=== PATIENT | female | born 1950 | race Caucasian/White ===

== ENCOUNTER 2025-05-10 11:45 | Outpatient (CLI) | payer MEDICARE, SELFPAY ==
--- NOTE | ~2025-05-10 | XR_ITS ---
EXAMINATION: XR hand LT 2V, 05/10/2025 12:00 CDT HISTORY: REDNESS, PAIN, SWELLING L HAND AND WRIST COMPARISON: No comparisons available. Findings: No acute fracture or malalignment. Moderate to severe degenerative changes of the distal and proximal interphalangeal joints with small erosions noted. Soft tissues unremarkable. Impression: Degenerative changes Reviewed, dictated and finalized at location P. Impression: Degenerative changes
--- NOTE | ~2025-05-10 | XR_ITS ---
EXAMINATION: XR wrist LT 2V, 05/10/2025 12:00 CDT HISTORY: REDNESS, PAIN, SWELLING L HAND AND WRIST COMPARISON: No comparisons available. Findings: No acute fracture or malalignment. Severe degenerative changes with narrowing of the joint spaces with small erosions identified and disruption of the carpal arches. Soft tissue swelling. Impression: Severe degenerative changes. Outpatient MRI suggested to further evaluate Reviewed, dictated and finalized at location P. Impression: Severe degenerative changes. Outpatient MRI suggested to further evaluate
--- OUTSIDE RECORDS SUMMARY | 2025-05-10 12:07 | XMS_ITS | Clinical Summary ---
Author Organization [facility] Address [facility] [place] [address] Care Team Providers Care Barrel Washer Machine Name Role Phone Ambar Doss Primary Care Provider [phone] Social History Tobacco Use Types Packs/Day Years Used Date Smoking Tobacco: Former Comments Unknown Sex and Gender Information Value Date Recorded Sex Assigned at Not on file Legal Sex Female 6:25 PM CDT Gender Identity Not on file Sexual Orientation Not on file Last Filed Vital Signs Vital Sign Reading Time Taken Comments Blood Pressure 146/96 11/01/2010 1:11 AM CDT Pulse 87 11/01/2010 1:11 AM CDT Temperature - - Respiratory Rate 18 11/01/2010 1:11 AM CDT Oxygen Saturation - - Inhaled Oxygen Concentration - - Weight 116.1 kg (256 lb) 11/01/2010 1:11 AM CDT Height 162.6 cm (5' 4) 11/01/2010 1:11 AM CDT Body Mass Index 43.94 11/01/2010 1:11 AM CDT Plan of Treatment Health Maintenance Due Date Last Done Comments Colorectal Cancer Screening Colonoscopy (10 Years) 1950 Hepatitis C 1968 DTaP, Tdap and Td Vaccines ( 1 - Tdap) 1969 Mammogram Screening 1990 Pneumococcal Vaccine: 50+ Years (1 of 1 - PCV) 2000 Zoster Vaccines (1 of 2) 2000 Annual Medicare Wellness Visit 12/25/2015 Dexa Scan (General) 12/25/2015 COVID-19 Vaccine (2024-2 6 season) 2025 04/26/2021, 11/23/2020, 11/02/2020 RSV Immunization or 60+ Years (1 - 1-dose 75+ series) 2025 Meningococcal B Vaccine Aged Out No l onger eligible based on patient's age to complete this topic Meningococcal Vaccine Aged Out No jeremi nathaniel eligible based on patient's age to complete this topic RSV Immunizations Under 20 Months Aged Out No longer eligible b ased on patient's age to complete this topic Insurance MEDICARE Care Teams Barrel Washer Machine Relationship Specialty Start Date End Date Ambar Doss FNP Formerly named [facility] [place] [address] [place] [address] PCP - General NURSE PRACTITIONER 07/12/23
--- OUTSIDE RECORDS SUMMARY | 2025-05-10 12:07 | XMS_ITS ---
Author Organization [facility] r Care Team Providers Care Sales Intern Name Role Phone Nursing, Order Unavailable Unavailable Yasmani Gutierrez Unavailable Unavailable Allergies and adverse reactions Code CodeSystem Substance Reaction Severity StartDate Concern Status 535369115 SNOMED CT Sulfa Antibiotics Nausea (code- 984208061, SNOMED CT) Severe 04/17/2024 active 23191 RXNORM levoFLOXacin Vomiting (code- 841335081, SNOMED CT) Severe 04/17/2024 active 14365 RXNORM Gabapentin Anaphylaxis (code- 50596907, SNOMED CT) Severe 04/17/2024 active Care Team Name Role Address Phone Organization Dates Yasmani Gutierrez PCP [address] , [place], [address], [place] (Office): : [facility] ([place] 04/20/2024 - 05/01/2024 Order Nursing [facility] 04/20/2024 - 05/01/2024 Immunizations Immunization Status Vaccine Details Vaccine Code CodeSystem Date Notes Influenza completed Influenza, high-dose, split virus, quadrivalent, injectable, preservative free 197 CVX created date: 05/01/2024 administere d date: 06/26/2022 T-DAP completed tetanus toxoid, reduced diphtheria toxoid, and acellular pertussis vaccine, adsorbed 115 CVX created date: 05/01/2024 administere d date: 02/01/2023 pneumococcal polysaccharide PPV23 completed pneumococcal polysaccharide vaccine, 23 valent 33 CVX created date: 05/01/2024 administere d date: 06/30/2021 pneumococcal conjugate completed pneumococcal conjugate vaccine, 13 valent 133 CVX created date: 05/01/2024 administere d date: 02/01/2023 Mental Status Section Date Assessment Total Score Description 05/01/2024 BIMS 15 cognitively int act CAM 0 No delirium ind icated PHQ-9 00 04/22/2024 BIMS 11 moderate cognit des impairment CAM 0 No delirium ind icated PHQ-9 01 minimal depress ion Problems Problem # Description Date of onset Resolved Date Code CodeSystem Concern Status 1 CHRONIC OBSTRUCTIVE PULMONARY DISEASE, UNSPECIFIED 04/20/[address] active 2 HYDROCEPHALUS, UNSPECIFIED 04/20/[address] active 3 URINARY TRACT INFECTION, SITE NOT SPECIFIED 04/20/[address] active 4 (IDIOPATHIC) NORMAL PRESSURE HYDROCEPHALUS 04/17/[address] active 5 ABNORMAL LEVELS OF OTHER SERUM ENZYMES 04/17/[address] active 6 ANXIETY DISORDER, UNSPECIFIED 04/17/[address] active 7 CHRONIC KIDNEY DISEASE, STAGE 3 UNSPECIFIED 04/17/[address] active 8 DEPRESSION, UNSPECIFIED 04/17/[address] active 9 ENCEPHALOPATHY, UNSPECIFIED 04/17/[address] active 10 ESSENTIAL (PRIMARY) HYPERTENSION 04/17/[address] active 11 FIBROMYALGIA 04/17/[address] acti ve 12 GASTRO-ESOPHAGEAL REFLUX DISEASE WITHOUT ESOPHAGITIS 04/17/[address] active 13 GOUT, UNSPECIFIED 04/17/[address] active 14 HYPERLIPIDEMIA, UNSPECIFIED 04/17/[address] active 15 HYPOKALEMIA 04/17/[address] active 16 HYPOTHYROIDISM, UNSPECIFIED 04/17/[address] active 17 IRRITABLE BOWEL SYNDROME, UNSPECIFIED 04/17/[address] active 18 OTHER CERVICAL DISC DISPLACEMENT, UNSPECIFIED CERVICAL REGION 04/17/[address] active 19 PERSONAL HISTORY OF COVID-19 04/17/[address] active 20 POST-TRAUMATIC STRESS DISORDER, UNSPECIFIED 04/17/[address] active 21 PRIMARY OSTEOARTHRITIS, LEFT SHOULDER 04/17/[address] active 22 RESTLESS LEGS SYNDROME 04/17/[address] active 23 SLEEP APNEA, UNSPECIFIED 04/17/[address] active 24 SPONDYLOSIS WITHOUT MYELOPATHY OR RADICULOPATHY, CERVICAL REGION 04/17/[address] active 25 UNSPECIFIED ASTHMA, UNCOMPLICATED 04/17/[address] active 26 VITAMIN D DEFICIENCY, UNSPECIFIED 04/17/[address] active Reason for Referral No Reasons for Referral Entered Social History Social History Observation Description Start Date End Date Code Code System Current Smoking Status Tobacco smoking consumption unknown 404443792 SNOMED CT Sex Assigned At Female 1950 46268-5 [facility] Gender Identity Sexual Orientation Vital Signs Code Code System Vitals Name Values and Units Timing Information 04803-9 [facility] Pain Level Value=0.0 05/01/2024 9279-1 [facility] Respiratory Rate Value=22.0 Units=/m in 05/01/2024 8462-4 [facility] Blood Pressure-Diastolic Value=93 Un its=mmHg 05/01/2024 8480-6 [facility] Blood Pressure-Systolic Jldkc=624 Un its=mmHg 05/01/2024 8310-5 [facility] Body Temperature Value=97.7 Units= F 05/01/2024 8867-4 [facility] Heart rate Value=78.0 Units=/min 71844-5 [facility] O2 % [facility] Oximetry Value=90.0 Units= % 05/01/2024 86528-7 [facility] Weight Dxjog=510.0 Units=Lbs 8302-2 [facility] Height Value=68.0 Units=Inches 04/20/2024
--- OUTSIDE RECORDS SUMMARY | 2025-05-10 12:07 | XMS_ITS | Clinical Summary ---
Author Organization [employer] Address [address] [place] [address] [address] [place] [address] Care Team Providers Care Senior Oracle Dba Name Role Phone Provider, No Attributed RESOURCE Unavailable Unavailable Yasmani Gutierrez MD Primary Care Provider Allergies Active Allergy Reactions Criticality Noted Date Comments Acetaminophen Injection Unknown/Not Verified Codeine Nausea and Vomiting Codeine Rash High 03/04/2015 Hydrocodone Rash High 04/14/2019 Levofloxacin Unknown/Not Verified 06/03/2015 Gabapentin Anaphylaxis (High) High Penicillin Rash High 03/04/2015 Sulfa Drugs Rash,Nausea and Vomiting 03/04/2015 Wasp Stings Wheezing/Bronchospasm (High) High 2015 Medications lisinopril-hydr ochlorothiazide (PRINZIDE, ZESTORETIC) 20-25 mg tablet Take 1 tablet by mouth 1 time per day. Active levothyroxine (SYNTHROID) 25 mcg tablet Take 25 mcg by mouth 1 time a day in the morning. Active levothyroxine (SYNTHROID) 88 mcg tablet Take 88 mcg by mouth 1 time per day. Active allopurinol (ZYLOPRIM) 100 mg tablet Take 200 mg by mouth 1 time per day. Active rOPINIRole (REQUIP) 1 mg tablet Take 2-3 tablets by mouth 3 times a day as needed. Active albuterol HFA (PROVENTIL,PROA IR,VENTOLIN) 108 (90 BASE) MCG/ACT inhaler Inhale 1-2 puffs orally every 4 to 6 hours as needed. Shake well before using. Active atorvaSTATin (LIPITOR) 10 mg tablet Take 10 mg by mouth Active DULoxetine (CYMBALTA) 20 mg capsule Take 20 mg by mouth 1 time per day Active furosemide (LASIX) 20 mg tablet Take 20 mg by mouth Active LORazepam (ATIVAN) 1 mg tablet Take 1 mg by mouth 4 times a day as needed Active magnesium oxide (MAG-OX 400) 400 mg tablet Take by mouth 1 time per day Active multivitamin (CERTAVITE WITH ANTIOXIDANTS) TABS Take 1 tablet by mouth Active cyanocobalamin, vitamin B-12, 100 mcg tablet Take 100 mcg by mouth 1 time per day Active acetaminophen (TYLENOL ARTHRITIS) 650 mg CR tablet Take 650 mg by mouth Every 8 hours as needed Active HYDROcodone-ibu profen (VICOPROFEN) 7.5-200 mg tablet Take 1 tablet by mouth every 4 to 6 hours as needed Active omeprazole (PRILOSEC) 20 mg capsuleIndicati ons:History of Senia fundoplication, Esophageal dysphagia Take 1 capsule (20 mg) by mouth 1 time a day in the morning 30 capsule 12 7 Active lidocaine (LIDODERM) 5% patchIndication s:Right flank pain Apply 1 patch topically 1 time per day Patches may be left on for up 12 hours in a 24 hour period. 30 patch 9 Active cyclobenzaprine (FLEXERIL) 10 mg tabletIndicatio ns:Right flank pain Take 0.5 tablets (5 mg) by mouth 3 times a day as needed for muscle spasm 20 tablet 9 Active Active Problems Problem Noted Date Diagnosed Date Asthma ([facility]) 05/27/2019 Gastroesophageal reflux disease 05/27/2019 Elevated liver enzymes 05/27/2019 Essential hypertension 05/27/2019 Fusion of spine of lumbar region 05/27/2019 Generalized anxiety disorder 05/27/2019 Hypothyroidism (acquired) 05/27/2019 Major depressive disorder, single episode 2018 Obstructive sleep apnea 05/27/2019 Peripheral arterial disease 05/27/2019 Primary osteoarthritis of left hip 05/27/2019 Restless legs syndrome 05/27/2019 Skin cancer, basal cell 05/27/2019 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 05/27/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 02/09 Family History Medical History Relation Comments Cerebrovascular Accident Father Heart Disease Mother Relation Status Comments Father Mother Social History Tobacco Use Types Packs/Day Years Used Date Smoking Tobacco: Former Cigarettes Q uit: 08/12/1990 Smokeless Tobacco: Never Alcohol Use Standard Drinks/Week Comments Yes 0 (1 standard drink = 0.6 oz pur e alcohol) Sexually Active Control Partners Comments Yes Male Comments No Sex and Gender Information Value Date Recorded Sex Assigned at Not on file 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 Gender Identity Not on file Sexual Orientation Not on file Last Filed Vital Signs Vital Sign Reading Time Taken Comments Blood Pressure 154/94 05/27/2019 7:10 PM CDT Pulse 87 05/27/2019 10:19 PM CDT Temperature 36.5 C (97.7 F) 05/27/2019 7:09 PM CDT Respiratory Rate 22 05/27/2019 7:09 PM CDT Oxygen Saturation 100% 05/27/2019 10:19 PM CDT Inhaled Oxygen Concentration - - Weight 108.4 kg (239 lb) 04/24/2017 10:30 AM CDT Height 162.6 cm (5' 4) 04/24/2017 10:30 AM CDT Body Mass Index 41.02 04/24/2017 10:30 AM CDT Plan of Treatment Health Maintenance Due Date Last Done Comments Hepatitis C Screening 1950 Microalbumin 1950 TSH Every Year 1950 TDAP/TD VACCINE (1 - Tdap) 12/25/1971 Lipid Screening 1990 Pneumococcal Vaccine 50yr + (1 of 1 - PCV) 2000 Zoster Vaccine (1 of 2) 2000 Mammogram 07/14/2013 07/14/2012 Advance [employer] Directive document 12/25/2015 DEXA/Heel Scan 12/25/2015 Colorectal Cancer Screening 08/12/2019 08/12/2009 Creatinine 05/27/2020 05/27/2019 Diabetes Screening 05/27/2022 05/27/2019 Influenza Vaccine (#1) 2025 RSV Vaccine, Adult (1 - 1-do se 75+ series) 2025 Hepatitis B Vaccine Aged Out No longe r eligible based on patient's age to complete this topic Procedures Procedure Name Priority Date/Time Associated Diagnosis Comments COMPREHENSIVE METABOLIC PANEL STAT 05/27/2019 7:15 PM CDT from Last 3 Months or Most Recently Relevant to Health Maintenance Results * (ABNORMAL) COMPREHENSIVE METABOLIC PANEL (05/27/2019 7:15 PM CDT) Glucose 115(H) 70 - 100 mg/dL 05/27/2019 7:40 PM [facility] BUN 8(L) 10 - 20 mg/dL 05/27/2019 7:40 PM [facility] Creatinine 0.70 0.57 - 1.11 mg/dL 05/27/2019 7:40 PM [facility] BUN/Creatinine Ratio 11.4 8.0 - 36.0 05/27/2019 7:40 PM [facility] Sodium 140 136 - 145 meq/L 05/27/2019 7:40 PM [facility] Potassium 3.9 3.5 - 5.1 meq/L 05/27/2019 7:40 PM [facility] Chloride 99 98 - 107 meq/L 05/27/2019 7:40 PM [facility] CO2 29 22 - 29 meq/L 05/27/2019 7:40 PM [facility] Anion Gap with K 16 6 - 18 meq/L 05/27/2019 7:40 PM [facility] Calcium 9.9 8.4 - 10.2 mg/dL 05/27/2019 7:40 PM [facility] Protein Total 7.5 6.4 - 8.3 g/dL 05/27/2019 7:40 PM [facility] Albumin 4.1 3.5 - 5.0 g/dL 05/27/2019 7:40 PM [facility] Alkaline Phosphatase 166(H) 40 - 150 U/L 05/27/2019 7:40 PM [facility] AST - SGOT 21 8 - 34 U/L 05/27/2019 7:40 PM [facility] ALT - SGPT 17 10 - 41 U/L 05/27/2019 7:40 PM [facility] Bilirubin Total 0.3 0.2 - 1.2 mg/dL 05/27/2019 7:40 PM [facility] Age 68 Years 05/27/2019 7:40 PM [facility] eGFR Non- 83 mL/min/1. 73m2 05/27/2019 7:40 PM CDT [facility] eGFR >90 mL/min/1. 73m2 05/27/2019 7:40 PM CDT [facility] Comment: The estimated Glomerular Filtration Rate (eGFR) is calculated using the Abbreviated Modification of Diet in Renal Disease (MDRD) equation. The eGFR is reported out in mL/min. per 1.73 meter squared units. The National Kidney Foundation action value for patients without a diagnosis of chronic kidney disease is a eGFR of < 60 mL/min per 1.73M2. The National Kidney Foundation stages listed below apply to patients with a diagnosis of chronic kidney disease (defined as either kidney damage or eGFR <60 mL/min/1.73 m2 for 3 months). Kidney damage is defined as pathologic abnormalities or markers of damage, including abnormalities in blood or urine tests or imaging studies. These stages apply to adults. No standardized classification has yet been established for pediatric patients. Stage eGFR in ml/min per 1.73M2 1 Kidney abnormality with normal or increased eGFR >or=90 2 Kidney abnormality with mild decreased eGFR 60-89 3 Moderately decreased eGFR 30-59 4 Severely decreased eGFR 15-29 5 Kidney failure <15 The eGFR varies with age, sex, race and body size and normally decreases with age. Blood BLOOD SPECIMEN / Unknown 05/27/2019 7:15 PM CDT 05/27/2019 7:22 PM CDT us Ashley PASCUAL LAB BLOOD Final Result [facility] [address] [place] [address] from Last 3 Months or Most Recently Relevant to Health Maintenance Advance Directives For more information, please contact: [phone] * Full Code (Latest Code Status on File) Date Activated Date Inactivated Comments 04/24/2017 10:37 AM 04/25/2017 6:17 AM Care Teams Senior Oracle Dba Relationship Specialty Start Date End Date Provider, No Attributed, RESOURCE [address] PCP - Attributed Provider 06/10/17 Yasmani Gutierrez MD [address] [place] [address] PCP - General 07/06/19
== END 2025-05-10 11:46 | disposition home or self-care (01) ==
PROVIDERS: PCP Internal Medicine; Visit Provider Internal Medicine
DX: R52 Pain, unspecified (principal)
CPT/HCPCS: 73100; 73120

== ENCOUNTER 2025-05-17 01:26 | Observation (INO) | payer MEDICARE, OTHER, SELFPAY ==
--- OUTSIDE RECORDS SUMMARY | 2024-04-20 19:00 | XMS_ITS | Continuity of Care Document ---
Author Organization [facility] Address [address] [facility] 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 [address] [place], [place], [id number] , [place]. tel:[phone] Referring Provider: Nik Mcgrath, [address] [place] [address] [address], [place], [address]. tel:[phone] [facility] [address] [place], [place], [address] , [place] tel:[phone] [facility] No Information 4 Roel Cisse. [address], [place], [place], [address] , [place]. tel: [phone] Referring Provider: Raf Lawrence, [address], [place], [address] . tel:[phone] [facility] [address], [place], [place], [address] , [place] tel: [phone] [facility] Follow Up of Post Op (chief complaint) Presence of right artificial shoulder joint Sep-2 2 Francia Velasquez. [address], [place], [place], [id number] , [place]. tel: [phone] Referring Provider: Ron Hanson, [address] , [place], [address] . tel:[phone] [facility] [address] , [place], [place], [id number] , [place] tel: [phone] [facility] No Information Sep-0 2 Francia Velasquez. [address], [place], [place], [id number] , [place]. tel: [phone] [facility] [address], [place], [place], [address] , [place] tel: [phone] [facility] Presence of right artificial shoulder joint Sep-0 2 Francia Velasquez. [address], [place], [place], [id number] , [place]. tel: [phone] [facility] [address], [place], [place], [address] , [place] tel: [phone] [facility] Post Op (chief complaint) Presence of right artificial shoulder jointAftercare following right shoulder joint replacement surgery Mar-0 2 Francia Velasquez. [address], [place], [place], [address] , [place]. tel: [phone] Referring Provider: Ron Hanson, [address], [place], [address] . tel:[phone] [facility] [address], [place], [place], [address] , [place] tel:[phone] [facility] Post Op (chief complaint) Aftercare following right shoulder joint replacement surgeryPresence of right artificial shoulder joint 2 Francia Velasquez. [address], [place], [place], [address] , [place]. tel:[phone] Referring Provider: Ron Hanson, [address], [place], [address] . tel:[phone] [facility] [address], [place], [place], [address] , [place] tel:[phone] [facility] No Information 2 Amaris Alves. [address], [place], [place], [address] , [place]. tel:[phone] Referring Provider: Long Harrell, [address], [place], [address] . tel:[phone] Office/Outpa tient Vist Est 3 [facility] [address], [place], [place], [address] , [place] tel:[phone] [facility] Right shoulder pain (chief complaint) Primary osteoarthritis, right shoulder 1 Amaris Alves. [address], [place], [place], [address] , [place]. tel:[phone] Referring Provider: Long Harrell, [address], [place], [address] . tel:[phone] Office/Outpa tient Vist Est 3 [facility] [address], [place], [place], [address] , [place] tel:[phone] [facility] Left hip pain (chief complaint) Pain in left hipUnsp complication of internal prosth dev/grft, init Mar- 0 Amaris Alves. [address], [place], [place], [address] , [place]. tel: [phone] Referring Provider: Long Harrell, [address], [place], [address] . tel:[phone] [facility] [address], [place], [place], [address] , [place] tel: [phone] [facility] SP Left CATHIE DAA 04-21-19 (chief complaint) Primary osteoarthritis of left hipStatus post total hip replacement, left Sep-2 9 Laine Morales. [address], [place], [place], [address] , [place]. tel: [phone] Referring Provider: Andrew Hanson, [address], [place], [address] . tel:[phone] [facility] [address], [place], [place], [address] , [place] tel: [phone] [facility] No Information Sep- 9 Amaris Alves. [address], [place], [place], [id number] , [place]. tel: [phone] Referring Provider: Long Harrell, [address], [place], [address] . tel:[phone] Office/Outpa tient Vist Est 3 [facility] [address], [place], [place], [address] , [place] tel: [phone] [facility] Right arm pain (chief complaint) Pain in right shoulderCervicalgia Sep-0 9 Amaris Alves. [address], [place], [place], [address] , [place]. tel: [phone] Referring Provider: Long Harrell, [address], [place], [address] . tel:[phone] Office/Outpa tient Vist Est 3 [facility] [address], [place], [place], [address] , [place] tel:[phone] [facility] Left hip pain (chief complaint) Pain in left hip 9 Amaris Alves. [address], [place], [place], [address] , [place]. tel:[phone] Referring Provider: Long Harrell, [address], [place], [address] . tel:[phone] Office/Outpa tient Vist Est 3 [facility] [address], [place], [place], [address] , [place] tel:[phone] [facility] 4 month recheck, Left TSA 02/11/17 (chief complaint) Presence of left artificial shoulder joint May- 7 Amaris Alves. [address], [place], [place], [address] , [place]. tel:[phone] Referring Provider: Long Harrell, [address], [place], [address] . tel:[phone] Office/Outpa tient Visit Est 2 [facility] [address], [place], [place], [address] , [place] tel: [phone] [facility] Follow Up of injection (chief complaint) Spinal stenosis of lumbar region, unspecified whether neurogenic claudication present 7 Sergei Kim. [address], [place], [place], [address] , [place]. tel:[phone] Referring Provider: Julio Mai, [address], [place], [address] . tel:[phone] Office/Outpa tient Visit Ext 4 [facility] [address], [place], [place], [address] , [place] tel:[phone] [facility] asthma (chief complaint) sleep apnea (follow up) (chief complaint) Allergic rhinitis, unspecifiedObstruct des sleep apneaSevere persistent asthma, uncomplicated Sep-2 7 José Miguel Nunn. [address], [place], [place], [id number] , [place]. tel:[phone] Referring Provider: Arline Hanson, [address] , [place], [address] . tel:[phone] [facility] [address], [place], [place], [address] , [place] tel:[phone] [facility] No Information Sep-2 [facility] [place]. [address], [place], [place], [address] , [place]. tel:[phone] Len Perez. Referring Provider: Harman Yen, [address] [facility], [place], [address] . tel:[phone] Office/Outpa tient Visit Ext 4 [facility] [address], [place], [place], [address] , [place] [phone] [facility] low back pain (chief complaint) Low back painLumbar spinal stenosis Sep-1 7 Sergei Kim. [address], [place], [place], [address] , [place]. tel:[phone] Referring Provider: Julio Mai, [address], [place], [address] . tel:[phone] [facility] [address], [place], [place], [address] , [place] tel:[phone] [facility] SP Left TSA 02-11-17 (chief complaint) Status post total replacement of left shoulder 7 Laine Morales. [address], [place], [place], [address] , [place]. tel:[phone] Referring Provider: Andrew Hanson, [address], [place], [address] . tel:[phone] [facility] [address], [place], [place], [address] , [place] tel:[phone] [facility] SP Left TSA 02-11-17 (chief complaint) Primary osteoarthritis, left shoulderStatus post total replacement of left shoulder 7 Laine Morales. [address], [place], [place], [address] , [place]. tel:[phone] Referring Provider: Andrew Hanson, [address], [place], [address] . tel:[phone] [facility] [address], [place], [place], [address] , [place] tel:[phone] [facility] No Information 7 Amaris Alves. [address], [place], [place], [address] , [place]. tel:[phone] Referring Provider: Long Harrell, [address], [place], [address] . tel:[phone] Office/Outpa tient Vist Est 3 [facility] [address], [place], [place], [address] , [place] tel:[phone] [facility] Left shoulder pain (chief complaint) Arthritis of left shoulder region 7 Amaris Alves. [address], [place], [place], [address] , [place]. tel:[phone] Referring Provider: Julio Mai, [address], [place], [address] . tel:[phone] Office Visit New Level 3 [facility] [address] [place] [address], [id number] , [place] tel: [phone] [facility] shoulder pain (chief complaint) Pain in left shoulderArthritis of left shoulder region 7 Sergei Kim. [address] [place] [address], [id number] , [place]. tel: [phone] Referring Provider: Len Basilio, [address] [place], [address] . tel:[phone] Office/Outpa tient Visit Ext 4 [facility] [address] , [place], [place], [address] , [place] tel: [phone] [facility] asthma (chief complaint) sleep apnea (follow up) (chief complaint) Obstructive sleep apneaSevere persistent asthma with (acute) exacerbationDyspnea , unspecified 7 José Miguel Nunn. [address] [place] [address], [id number] , [place]. tel:[phone] Referring Provider: Arline Hanson, [address] [facility], [place], [address] . tel:[phone] Office Visit New Level 5 [facility] [address] [place] [address], [id number] , [place] tel: [phone] [facility] sleep apnea (consult) (chief complaint) cough (chief complaint) asthma (chief complaint) SnoringObstructive sleep apneaSevere persistent asthma with (acute) exacerbationAllergi c rhinitis, unspecified 7 José Miguel Nunn. [address] , [place], [place], [address] , [place]. tel:[phone] Referring Provider: Arline Hanson, [address] [facility], [place], [address] . tel:[phone] Prevent Exam 40-64 Years [facility] [address] , [place], [place], [address] , [place] tel: [phone] [facility] annual exam (chief complaint) ROUTINE MEDICAL EXAMUnspecified essential hypertensionUnspeci fied hypothyroidismGout, unspecifiedMyalgia and myositis, unspecifiedDepressi ve disorder, not elsewhere classifiedAnxiety state, unspecifiedMammogra m, ScreeningRoutine Disability Insurance Hearing Officer Examination 4 Sergei Choudhury. [address] , [place], [place], [id number] , [place]. tel: [phone] Referring Provider: Kei Dubois, [address] , [place], [address] . tel:[phone] Family History Family Member Type Diagnosis Age At Onset Father Problem (finding) Cancer, skin Mother Problem (finding) congestive heart failur e Payers Payer name Insurance type Covered alliance party ID Nirav arteaga(s) [place] Medicare [id number] [facility] [id number] Social History Type Description Quantity Date Captured [...] u se screening. Due on due Goal FOBT. Due on due Goal Td vaccine. Due on due Goal DEXA scan. Due on due Goal FIT. Due on due Goal CT-Colonography. Due on due Goal Hepatitis C scre ening. Due on due Goal Lipid panel. Due on 022 due Goal Reviewed BMI. Due on 2021 due Goal Annual Wellness Visit. Due on due Goal Sigmoidoscopy. Due on due Goal Depression scree sharee. Due on due Goal Advance Care Denise nning. Due on due Goal FIT-DNA. Due on due Goal Fall Risk. Due on due Goal Colonoscopy. Due on due Goal Zoster vaccine. Due on due Goal Influenza vaccine. Due on due Goal Mammogram. Due on due Goal Tdap. Due on due Goal Pneumococcal vac cine. Due on due Goal Zoster vaccine ( ). Due on due Goal Zoster vaccine ( ). Due on due Goal Tdap. Due on due Goal Reviewed BMI. Due [...] on due Goal Fall Risk. Due on 2 due Goal Zoster vaccine. Due on due [...] vaccine ( ). Due on due Goal Reviewed BMI. Due on 2020 due Goal Unhealthy drug u se screening. Due on due Goal Zoster vaccine ( ). Due on due Goal Pneumococcal vac cine. Due on due Goal FOBT. Due on due Goal Advance Care Denise nning. Due on due Goal Depression scree sharee. Due on due Goal FIT. Due on due Goal Lipid panel. Due on due Goal Reviewed BMI. Due on 2019 due Goal DEXA scan. Due on 0 due Goal Annual Wellness Visit. Due on due Goal Influenza vaccine. Due on due Goal Mammogram. Due on 0 due Goal Sigmoidoscopy. Due on due Goal Tdap. Due on due Goal Colonoscopy. Due on due Goal Fall Risk. Due on 0 due Goal Zoster vaccine. Due on due Goal Diabetes screening. Due on A due Goal Td vaccine. Due on 20 due Goal Lipid panel. Due on 019 due Goal Diabetes screening. Due on due Goal Pneumococcal vac cine. Due on due Goal Td vaccine. Due on 19 due Goal Zoster vaccine ( 1st). Due on due Goal Zoster vaccine. Due on due Goal Annual Wellness Visit. Due on due Goal FOBT. Due on due Goal Reviewed BMI. Due on 2018 due Goal Mammogram. Due on 9 due Goal Sigmoidoscopy. Due on due Goal Fall Risk. Due on 9 due Goal Advance Care Denise nning. Due on due Goal DEXA scan. Due on 9 due Goal Tdap. Due on due Goal Influenza vaccine. Due on due Goal Colonoscopy. Due on due Goal FIT. Due on due Goal Depression scree sharee. Due on due Goal Annual Wellness Visit. Due on due Goal Lipid panel. Due on due Goal Depression scree sharee. Due on due Goal FOBT. Due on due Goal Reviewed BMI. Due on 2018 due Goal Zoster vaccine ( ). Due on due Goal FIT. Due on due Goal Fall Risk. Due on 9 due Goal Mammogram. Due on 9 due Goal Colonoscopy. Due [...] DEXA scan. Due on 9 due Goal Mammogram. Due on 9 due Goal Zoster vaccine. Due on due Goal Reviewed BMI. Due on 2018 due Goal FOBT. Due on due Goal Annual Wellness Visit. Due on due Goal Influenza vaccine. Due on due Goal Advance Care Denise nning. Due on due Goal FIT. Due on due Goal Lipid panel. Due on 019 due Goal Tdap. Due on due Goal Td vaccine. Due on 19 due Goal Depression scree sharee. Due on due Goal Sigmoidoscopy. Due on due Goal Diabetes screening. Due on due Goal Zoster vaccine ( ). Due on due Goal Colonoscopy. Due on 019 due Goal DEXA scan. Due on 9 due Goal Fall Risk. Due on 9 due Goal Pneumococcal vac cine. Due on due Goal Td vaccine. Due on 17 due Goal FOBT. Due on due Goal Zoster vaccine. Due on due Goal Tdap. Due on due Goal Mammogram. Due on 5 due Goal Fall Risk. Due on 7 due Goal Colonoscopy. Due on 017 due Goal FIT. Due on due Goal Depression scree sharee. Due on due Goal Lipid panel. Due on due Goal DEXA scan. Due on due Goal Pneumococcal vac cine. Due on due Goal Influenza vaccine. Due on Oc due Goal Sigmoidoscopy. Due on due Goal [...] Fall Risk. Due on 7 due Goal DEXA scan. Due on due [...] Td vaccine. Due on 17 due Goal Influenza vaccine. Due on due [...] Goal Mammogram. Due on 5 due Goal FOBT. Due on due Goal Tdap. Due on due Goal Depression scree sahree. Due on due Goal Influenza vaccine. Due [...] Goal Colonoscopy. Due on 017 due Goal Pap/HPV testing. Due on due Goal Depression scree sharee. Due on due Goal Td vaccine. Due on 17 due Goal Tobacco cessation counseling completed Referral Ordered: Harman Yen MD -Allopathic & Osteopathic Physicians : Anesthesiology (related to Lumbar spinal stenosis) ordered Referral Referred To: Harman Yen MD [address] [place], [phone] Ordered: Referrals: Allopathic & Osteopathic Physicians : Anesthesiology. Harman Yen MD ordered Referral Ordered: Len Mejia -Physician Assistants & Advanced Practice Nursing Providers : Physician Package Handler (related to Arthritis of left shoulder region) ordered Future Order: Lab Order Robb Wi th Bronch ([id number]), Sent on: Sent Future Order: Lab Order Pap Thin Prep (PL) ([id number]), Sent on: Sent Future Order: Lab Order CBC W/Au to Differential ([id number]), Sent on: Sent Future Order: Lab Order Comprehe nsive Metabolic Panel -[facility] ([id number]), Sent on: Sent Future Order: Lab [...] Prineo intact. Fell out of bed in [facility] last night- denies any new [...] 'roll down'. Patient doing outpatient therapy in [place] Patient using 1-2 tramadol per day to [...] for bilateral L2-3 TESI on 05-01-17 @ [facility] with Dr. Yen. YOBANY Left [facility] 02-11-17 (comments) 6 weeks s/p L CORAZONYeny is doing well in regards to her shoulder. She was in the ED recently with R sided neck pain, without radiculopathy. She continues in the A/S immobilizer and with her HEP. She takes only ES Tylenol prn for pain. SP Left TSA 7-10-26 Patient here along with her for left total shoulder follow up. Patient continues in her A/S immoblizer to her left arm. FYI-patient was seen in the ED/[facility] with complaints of severe right neck pain, up into my head. Patient given 2 injections, along with oral RX. SP Left TSA 7-10-26 Patient here along [...] Patient had her sleep study done in [place]. cough The patient desc ribes the cough as productive yellow. Associated symptoms include hoarseness. Pertinent negatives include dyspnea at rest, dyspnea on exertion and heartburn. Additional information: Patient finished a zThe Gluten Free Gourmetck yesterday. annual exam : 4. Cherelle ty: [...] alcohol. Additional information: Recently moved here from [place]. Last pap roughly three years ago. Mammogram [...] shoulder joint Yeny had a rough w ely shoshone and a half immediately following her surgery. [...] jody flood show progressive and very advanced yesy-aw-wwlr glenohumeral joint degenerative arthritis. She comes in [...] with numbness and tingling. She also has xxol-mk-anme arthritis involving her right shoulder glenohumeral joint. [...] Obstructive sleep apnea stable. will start rehab. [facility] R elated to Severe persistent asthma, [...] lift at L4-5, this was done in [place], and then a posterior fusion up to [...] her left anne medel show very advanced xsip-nm-atuu glenohumeral joint arthritis. She has been having [...]
[2025-05-17] VITALS (8 sets, daily range): BP systolic 116–154; BP diastolic 67–86; PULSE 84–99; RESP 14–20; TEMP 36.4–37.1; O2SAT 92–99; BMI 33.7
--- NOTE | ~2025-05-17 | CT_ITS ---
EXAMINATION: CT brain wo con DATE: 05/17/2025 02:52 INDICATION: Transient alteration of awareness. TECHNIQUE: Computed tomography (CT) of the head was performed without intravenous contrast. The mA was adjusted according to patient size. Iterative reconstruction technique was employed. The dose-length product was 681.00 mGy-cm. COMPARISON: None FINDINGS: There are scattered areas of low attenuation in the cerebral white matter. There is no intracranial hemorrhage, acute infarction, or abnormal intracranial mass lesion. The ventricles are normal in size. There is mild mucosal thickening in the paranasal sinuses. The mastoid air cells are normal. There are likely changes of ocular lens replacement surgeries. IMPRESSION: 1. Moderate nonspecific cerebral white matter disease, which likely represents chronic small vessel ischemic disease. Reviewed, dictated and finalized at location E.
--- NOTE | ~2025-05-17 | XR_ITS ---
EXAMINATION: XR chest 1V portable COMPARISON: No comparisons available. HISTORY: TRANSIENT ALTERATION OF AWARENESS. FINDINGS: The lungs are clear, no effusion. No pneumothorax. Heart is normal size. Mediastinal and hilar contours are within normal limits. Bony thorax no acute abnormality. Miscellaneous: None Impression: No acute cardiopulmonary abnormality. Reviewed, dictated and finalized at location P. Impression: No acute cardiopulmonary abnormality.
--- OUTSIDE RECORDS SUMMARY | 2025-05-17 01:46 | XMS_ITS | Clinical Summary ---
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 Gender Identity Not on file Sexual Orientation [...] 70 - 100 mg/dL 05/27/2019 7:40 PM [facility] BUN 8(L) 10 - 20 mg/dL 05/27/2019 7:40 PM [facility] Creatinine 0.70 0.57 - 1.11 mg/dL 05/27/2019 7:40 PM [facility] BUN/Creatinine Ratio 11.4 8.0 - 36.0 05/27/2019 7:40 PM [facility] Sodium 140 136 - 145 meq/L 05/27/2019 7:40 PM [facility] Potassium 3.9 3.5 - 5.1 meq/L 05/27/2019 7:40 PM [facility] Chloride 99 98 - 107 meq/L 05/27/2019 7:40 PM [facility] CO2 29 22 - 29 meq/L 05/27/2019 7:40 PM [facility] Anion Gap with K 16 6 - 18 meq/L 05/27/2019 7:40 PM [facility] Calcium 9.9 8.4 - 10.2 mg/dL 05/27/2019 7:40 PM [facility] Protein Total 7.5 6.4 - 8.3 g/dL 05/27/2019 7:40 PM [facility] Albumin 4.1 3.5 - 5.0 g/dL 05/27/2019 7:40 PM [facility] Alkaline Phosphatase 166(H) 40 - 150 U/L 05/27/2019 7:40 PM [facility] AST - SGOT 21 8 - 34 U/L 05/27/2019 7:40 PM [facility] ALT - SGPT 17 10 - 41 U/L 05/27/2019 7:40 PM [facility] Bilirubin Total 0.3 0.2 - 1.2 mg/dL 05/27/2019 7:40 PM [facility] Age 68 Years 05/27/2019 7:40 PM [facility] eGFR Non- 83 mL/min/1. 73m2 05/27/2019 7:40 PM CDT [facility] eGFR >90 mL/min/1. 73m2 05/27/2019 7:40 PM CDT [facility] Comment: The estimated Glomerular Filtration Rate (eGFR) [...] us Ashley PASCUAL LAB BLOOD Final Result [facility] [address] [place] [address] from Last 3 Months or Most Recently Relevant to Health Maintenance Advance Directives For more information, please contact: [phone] * Full Code (Latest Code Status on File) Date Activated Date Inactivated Comments 04/24/2017 10:37 AM 04/25/2017 6:17 AM Care Teams Soap Grinder Relationship Specialty Start Date End Date Provider, No Attributed, RESOURCE [address] PCP - Attributed Provider 06/10/17 Yasmani Gutierrez MD [address] [place] [address] PCP - General 07/06/19
--- OUTSIDE RECORDS SUMMARY | 2025-05-17 01:49 | XMS_ITS | Clinical Summary ---
Author Organization [facility] Address [facility] [place] [address] Care Team Providers Care Visual Merchandising Specialist Name Role Phone SelamAmbar garner EDWIN Primary Care Provider [phone] Social History Tobacco Use Types Packs/Day Years [...] 11/01/2010 1:11 AM CDT Plan of Treatment Upcoming Encounters Date Type Department Care Team (Latest Contact Info) Description 05/27/2025 8:30 AM CDT Hospital Encounter [facility] [place] [address] [place], [place] [id number] Elbert Hansen MD [address] [place] [address] 05/27/2025 8:30 AM CDT - 05/27/2025 10:34 AM CDT Surgery [facility] [place] [address] [place] [address] Elbert Hansen MD [address] [place], [place] [address] DISCECTOMY AND FUSION SPINAL ANTERIOR CERVICAL Scheduled Procedures Name Priority Associated Diagnoses Date/Ti me FUSION SPINAL ANTERIOR CERVICAL SEVERE CERVICAL SPINAL STENOSIS 05/27/2025 8:30 AM CDT Health Maintenance Due Date Last Done Comments Colorectal Cancer Screening Colonoscopy (10 Years) 1950 Hepatitis C 1968 DTaP, Tdap and Td Vaccines ( 1 - Tdap) 1969 Mammogram Screening 1990 Pneumococcal Vaccine: 50+ Years (1 of 1 - PCV) 2000 Zoster Vaccines (1 of 2) 2000 Annual Medicare Wellness Visit 12/25/2015 Dexa Scan (General) 12/25/2015 COVID-19 Vaccine (4 - 2024-2 6 season) 2025 04/26/2021, 11/23/2020, 11/02/2020 Influenza Adult (#1) 2025 05/16/2020, 05/26/2018 RSV Immunization or 60+ Years (1 - 1-dose 75+ series) 2025 Meningococcal B Vaccine Aged Out No l onger eligible based on patient's age to complete this topic Meningococcal Vaccine Aged Out No jeremi nathaniel eligible based on patient's age to complete this topic RSV Immunizations Under 20 Months Aged Out No longer eligible b ased on patient's age to complete this topic Goals Goal Patient Goal Type Associated Problems Recent Progress Patient-Stated? Author Autogenerat ed Goal Care Plan Autogenerated Problem No Angie Frazier RN Additional Health Concerns Active Problems Noted Date Diagnosed Date Autogenerated Problem 05/14/[address] [place] [address] MEDICARE Care Teams Visual Merchandising Specialist Relationship Specialty Start Date End Date Ambar Doss FNP [facility] [place] [address] [place] [address] PCP - General NURSE PRACTITIONER 07/12/23
--- NOTE | 2025-05-17 01:53 | ECG_ITS ---
Test Date: 2025-05-17 02:03:40 Measurements Intervals [place] Rate: 91 P: 57 KS: 138 QRS: 2 QRSD: 102 T: 28 QT: 385 QTc: 474 Interpretive Statements SINUS RHYTHM POSSIBLE LEFT ATRIAL ENLARGEMENT LEFT VENTRICULAR HYPERTROPHY WITH ST-T CHANGE BORDERLINE R WAVE PROGRESSION, ANTERIOR LEADS BORDERLINE ST-T WAVE ABNORMALITY- ANTEROLAT/INF LEADS BASELINE ARTIFACT- I, II, III, AVR, AVL, AVF, V1-V6 BORDERLINE ECG No previous ECG available for comparison Electronically Signed On 05-17-2025 06:13:43 CDT by Rafael Flores D.O.
--- NOTE | 2025-05-17 01:58 | ED.AMS ---
HPI - Altered Mental Status General Chief Complaint: Altered Mental Status Stated Complaint: wellness check Time Seen by Provider: 05/17/25 01:35 Source: patient and EMS Mode of arrival: EMS Limitations: altered mental status History of Present Illness HPI narrative: Patient is a 74-year-old female with NPH and spinal stenosis with upcoming surgeries to repair both problems here with altered mental status. Patient was acting out at the senior living and PD had to come help with the situation. Patient was sent to the ER for evaluation. She gets UTIs and gets similar symptoms as well. The NPH causes most of her waxing and waning altered mental status. She confabulates stories. MD complaint: altered mental status and confusion Onset (ago): month(s) Timing confirmed by: family member and caregiver Severity: moderate Consistency of symptoms: waxing and waning Context: other (Patient has NPH which causes altered mental status waxing and waning pattern and tonight she was having an episode) Associated symptoms: foul smelling urine and difficulty walking Treatments prior to arrival: other (None) Related Data Allergies Allergy/AdvReac Type Severity Reaction Status Date / Time gabapentin (Neurontin) Allergy Intermediate Unknown Verified 05/17/25 01:38 sulfadiazine Allergy Unknown Unknown Verified 05/17/25 01:38 codeine Allergy Unknown Verified 05/17/25 01:38 Bee stings Allergy Severe Unknown Uncoded 05/17/25 01:37 Review of Systems Review of Systems: All systems reviewed & are unremarkable except as noted in HPI and below Constitutional: Constitutional: Reports no additional constitutional complaints Eyes: Eyes: Reports no additional eye complaints ENT: Reports system reviewed and no additional complaints, except as documented Cardiovascular: Cardiovascular: Reports no additional cardiovascular complaints Respiratory: Respiratory: Reports no additional respiratory complaints Gastrointestinal: Gastrointestinal: Reports no additional gastrointestinal complaints Genitourinary: Genitourinary: Reports no additional female genitourinary complaints Musculoskeletal: Musculoskeletal: Reports no additional musculoskeletal complaints Integumentary/Breasts: Skin/Breast: Reports system reviewed and no additional complaints, except as docu Neurologic: Reports system reviewed and no additional complaints, except as documented Psychiatric: Psychiatric: Reports no additional psychiatric complaints Endocrine: Endocrine: Reports no additional endocrine complaints Hematologic/Lymphatic: Hematologic/Lymphatic: Reports no additional hematologic/lymphatic complaints Allergic/Immunologic: Allergic/Immunologic: Reports no additional allergic/immunologic complaints [facility] Social History Social History Smoking status: Former smoker Exam Const: General: healthy appearing Nutritional Appearance: well nourished Limitations: altered mental status HENMT: Head: normal to inspection Ears: external ears normal Face/Nose/Sinus: Normal external nose present Eyes: Conjunctivae: conjunctivae normal Pupils: Equal, round and reactive pupils present EOM: EOMs intact bilaterally Neck: Neck: normal visual inspection Chest: Chest palpation & inspection: normal inspection of the chest Resp: Effort & Inspection: normal respiratory effort and not labored Auscultation: clear to auscultation bilaterally and no crackles Cardio: Rate: regular rate Rhythm: regular rhythm Heart sounds: no murmurs GI: Inspection: non-distended GI Palp: Yes Soft to palpation and No Tenderness to palpation present (GI) Auscultation: normal bowel sounds : General: Yes bladder normal to palpation Back/Spine/Pelvis: Back: no CVA tenderness Skin: General skin exam: normal color Rashes: no rashes Wounds: no wounds Neuro: General: moves all extremities, no meningeal signs, no focal motor deficits and CN's II-XI intact bilaterally Cranial nerves: Yes Nystagmus not present Speech: normal speech Other: Fast exam negative, NH is 0, GCS is 15 Extrem: General: normal to inspection, no clubbing, cyanosis or edema and no pedal edema Psych: Mental Status: mental status grossly abnormal Affect: normal affect Attitude: cooperative Other: Patient has waxing and waning confusion Course Vital Signs Vital signs: Vital Signs Temperature 36.6 C 05/17/25 01:30 Pulse Rate 84 05/17/25 01:30 Respiratory Rate 20 05/17/25 01:30 Blood Pressure 140/86 05/17/25 01:30 Pulse Oximetry 99 05/17/25 01:30 Oxygen Delivery Room Air 05/17/25 01:30 Temperature 36.6 C 05/17/25 01:30 Pulse Rate 84 05/17/25 01:34 Respiratory Rate 20 05/17/25 01:34 Blood Pressure 140/82 05/17/25 01:34 Pulse Oximetry 99 05/17/25 01:34 Oxygen Delivery Room Air 05/17/25 01:30 MDM - Altered Mental Status MDM Narrative Medical decision making narrative: Patient is a 74-year-old female with normal pressure hydrocephalus and spinal stenosis here with altered mental status this evening. She gets urinary tract infections and gets similar symptoms as well. We will do workup at this time. Likely admit the patient to this facility. Lab Data Attestation: I reviewed the patient's lab results. 05/17/25 02:33 05/17/25 02:33 Labs: Lab Results 05/17/25 05/17/25 Range/Units 02:00 02:33 WBC 9.5 (4.8-10.8) K/mm3 RBC 4.63 (4.20-5.40) M/mm3 Hgb 13.7 (11.7-13.8) g/dL Hct 41.9 (35.0-42.0) % MCV 90.5 (78.0-102.0) fL MCH 29.6 (27.0-31.0) pg MCHC 32.7 (32-36) g/dL RDW 13.2 (11.6-14.4) % Plt Count 364 (150-420) K/mm3 MPV 9.6 (9.2-11.8) fl Immature Gran % (Auto) 0.3 H (0.0-0.0) % Neut % (Auto) 56.1 (50.0-70.0) % Lymph % (Auto) 30.6 (18.0-42.0) % [place] % (Auto) 7.4 (2.0-11.0) % Eos % (Auto) 5.2 (1.0-6.0) % Baso % (Auto) 0.4 (0.0-1.0) % Lymph # (Auto) 2.92 (1.10-4.50) K/mm3 [place] # (Auto) 0.71 (0.10-0.90) K/mm3 Eos # (Auto) 0.50 (0.02-0.50) K/mm3 Baso # (Auto) 0.04 (0.00-0.10) K/mm3 Abs Immat Gran (auto) 0.03 H (0.00-0.00) K/mm3 Absolute Neuts (auto) 5.34 (1.70-7.20) K/mm3 Absolute Nucleated RBC 0.00 (0.00-0.00) K/mm3 Nucleated RBC % 0.0 (0-0.0) % Sodium 141 (137-145) mmol/L Potassium 2.9 L (3.4-5.0) mmol/L Chloride 98 (98-107) mmol/L Carbon Dioxide 32 H (22-30) mmol/L Anion Gap 11 (4-12) mmol/L BUN 27 H D (7-17) mg/dL Creatinine 1.11 H (0.7-1.0) mg/dL Estim Creat Clear Calc 42 ml/min Estimated GFR 48 L (59 - ) Glucose 107 (65-110) mg/dL Calculated Osmolality 297 H (285-295) mOsm/kg Lactic Acid 1.6 (0.4-2.0) mmol/L Calcium 9.8 (8.4-10.2) mg/dL Total Bilirubin 0.5 (0.2-1.3) mg/dL AST 28 (14-36) U/L ALT 13 (6-35) U/L Alkaline Phosphatase 137 H (38-126) U/L Troponin I < 0.012 (0.000-0.034) ng/mL Total Protein 9.2 H (6.3-8.2) g/dL Albumin 3.9 (3.5-5.1) g/dL Urine Color Light yellow (Yellow) Urine Appearance Clear (Clear) Urine pH 5.5 (5.0-8.0) Ur Specific [place] 1.020 (1.010-1.020) Urine Protein Negative (Negative) Urine Glucose (UA) Negative (Negative) Urine Ketones Negative (Negative) Ur Blood (Man) Negative (Negative) Urine Nitrate Negative (Negative) Urine Bilirubin Negative (Negative) Urine Urobilinogen 0.2 (0.2-1.0) mg/dL Leukocyte Esterase Rfl Trace H (Negative) ARMOND/UL Urine WBC 10-15 H (0-3) /hpf Urine WBC Clumps Present H (None) /hpf Amorphous Sediment Heavy H (None) Urine Bacteria 4+ H (None) /hpf Urine Mucus Heavy H /lpf Imaging Data Attestation: I personally reviewed and interpreted this imaging study as follows: ECG Data EKG #1: Attestation: I personally reviewed and interpreted this ECG as follows: ECG completion date: 05/17/25 ECG completion time: 02:39 EKG Interpretation: normal rate, sinus rhythm, no ectopy, non-specific ST changes, normal QRS, normal QT and NL axis Discharge Plan Discharge Clinical Impression: Acute UTI, Hypokalemia, NPH (normal pressure hydrocephalus) AMS (altered mental status) Qualifiers: Altered mental status type: unspecified Qualified Code(s): R41.82 - Altered mental status, unspecified Patient Disposition: [facility] Condition: Stable Patient Language: Andorran Follow-up/Referrals: Bernie,Jorge Green [Primary Care Provider] Time of Disposition: 03:43
--- NOTE | 2025-05-17 02:00 | PC.NURSE ---
Call placed to [facility] for a report, no report called prior to pt arrival from nursing staff. Per NH report pt was not wanting to take her prn Ativan tonight and became verbally and physically aggressive w/ staff tonight. Per staff pts daughter was called and daughter reports that pt gets this way when she has a UTI.
--- NOTE | 2025-05-17 02:37 | PC.NURSE ---
After speaking to pts daughter, hx details received about pts encephalopathy and hydrocephaly. Pt is scheduled for surgery at [facility] for spinal stenosis on the of this month. She will then at a later date have a shunt placed.
[2025-05-17 02:40] LABS: Hematocrit 41.9 % (35.0-42.0); Hemoglobin 13.7 g/dL (11.7-13.8); Immature Granulocyte Percent A 0.3 % (0.0-0.0); Lymphocytes Absolute Auto 2.92 K/mm3 (1.10-4.50); Mean Corpuscular HGB Conc 32.7 g/dL (32-36); Mean Corpuscular Hemoglobin 29.6 pg (27.0-31.0); Mean Corpuscular Volume 90.5 fL (78.0-102.0); Nucleated Red Blood Cells Absolute Auto 0.00 K/mm3 (0.00-0.00); Nucleated Red Blood Cells Perc 0.0 % (0-0.0); Platelet Count Result 364 K/mm3 (150-420); Red Blood Count 4.63 M/mm3 (4.20-5.40); White Blood Count 9.5 K/mm3 (4.8-10.8)
[2025-05-17 02:56] LABS: Alanine Aminotransferase 13 U/L (6-35); Albumin Level 3.9 g/dL (3.5-5.1); Alkaline Phosphatase 137 U/L (38-126); Anion Gap 11 mmol/L (4-12); Aspartate Amino Transferase 28 U/L (14-36); Bilirubin,Total 0.5 mg/dL (0.2-1.3); Blood Urea Nitrogen 27 mg/dL (7-17); Calcium 9.8 mg/dL (8.4-10.2); Carbon Dioxide 32 mmol/L (22-30); Chloride 98 mmol/L (98-107); Estimated CRCL calculation 42 ml/min; Estimated Glomerular Filt Rate 48; Glucose 107 mg/dL (65-110); Osmolality Calculated 297 mOsm/kg (285-295); Potassium 2.9 mmol/L (3.4-5.0); Sodium 141 mmol/L (137-145); Total Protein 9.2 g/dL (6.3-8.2)
[2025-05-17 03:02] LABS: Add Urine Microscopic? YES; Appearance Urine Clear (Clear); Glucose Urine UA Negative (Negative); Leukocyte Esterase Ur Trace LEU/UL (Negative); Nitrate Urine Negative (Negative); Specific Grav Ur 1.020 (1.010-1.020)
[2025-05-17 03:08] LABS: Troponin I < 0.012 ng/mL (0.000-0.034)
[2025-05-17] MEDS: cefTRIAXone 1 GM in SODIUM CHLORIDE 0.9% IV 50 ML 100 ML IVPB (03:51)
--- NOTE | 2025-05-17 04:05 | PC.NURSE ---
Call to floor, spoke to Brandon Cabrera, report given. Pt to go to Rm 210. Pt is more alert and thankful for nursing care. VSS at this time. Daughter at bedside.
[2025-05-17] MEDS: SODIUM CHLORIDE 0.9% IV 1,000 ML 999 ML IV CONT (04:13)
[2025-05-17] MEDS: KCL 20 MEQ/SW 100 ML 100 ML 50 MEQ IVPB ×2 (04:14→14:57)
--- NOTE | 2025-05-17 04:26 | PC.NURSE ---
ED SBAR printed and reviewed. Awaiting pt arrival to the floor.
--- NOTE | 2025-05-17 04:51 | ADMGEN ---
This patient, Yeny Callahan, was admitted to 2nd Floor Room 210-2. Patient/family oriented to hospital policies and general routines including ID bracelet, bed and alarms, visiting hours, pain management, procedures, bathroom and other care routines, personal items, smoking policy, room service/diet, and visiting hours. Information on how to activate the Rapid Response Team has been discussed. Patient/Family are encouraged to report perceived risks to care and to ask questions if they do not understand what they are told or what they should do.
--- NOTE | 2025-05-17 07:28 | PM.IMHP ---
H&P: HPI History of Present Illness Date/Time: 05/17/25 07:28 Chief Complaint: AMS Narrative: Patient is a 74 year old female with PMH of NPH, spinal stenosis, hypothyroidism, HTN and RLS. Patient was sent to the ER from her half-way last night due to altered mental status. Patient was acting out at the half-way and the PD had to come and help with the situation. Per the daughter the patient was diagnosed approximately four months ago with NPH due to severe cervical spinal stenosis. She has had behavioral changes, waxing and waning mental status, ataxia, repeated falls. Patients daughter also reports that this is how she acts when she has had UTI's in the past. In the ER the patients head CT did not show any acute changes. Patients lab work showed a BUN 27, Cr 1.11 and K 2.9. UA showed 1+ leukocyte esterase, 4+ bacteria and WBC clumps. Patient was given IV fluids and IV ceftriaxone. Patient was admitted for further evaluation and treatment. Review of Systems Review of Systems: ROS unobtainable: Yes unobtainable due to mental status PMFSH Social History Social History Smoking status: Former smoker Tobacco type: cigarettes Second hand tobacco smoke exposure: No Alcohol intake: never Substance use: never Lack of Transportation: No Lack of Food: Never True Current Housing: I Have Housing Concerned About Future Housing: No Difficulty Paying Gas/Electric Bills: No Difficulty Paying for Meds: No Currently Unemployed: No Education: Associate Degree Difficulty w/ Childcare or Family Care: No Spiritual care concerns: No Meds Home Medications and Allergies Home Medications ?Medication ?Instructions ?Recorded ?Confirmed ?Type albuterol sulfate 90 mcg/actuation 1 inh inhalation Q4H PRN wheezing 05/17/25 05/17/25 History aerosol inhaler (Ventolin HFA) alendronate 70 mg tablet 70 mg PO WEEKLY 05/17/25 05/17/25 History allopurinol 300 mg tablet 300 mg PO QHS 05/17/25 05/17/25 History amlodipine 5 mg tablet 5 mg PO DAILY 05/17/25 05/17/25 History aspirin 81 mg tablet,delayed 81 mg PO .qd 05/17/25 05/17/25 History release bupropion HCl 300 mg 24 hr tablet, 300 mg PO .qd 05/17/25 05/17/25 History extended release duloxetine 60 mg capsule,delayed 60 mg PO QHS 05/17/25 05/17/25 History release furosemide 40 mg tablet (Lasix) 40 mg PO DAILY 05/17/25 05/17/25 History levothyroxine 100 mcg tablet 100 mcg PO .qd 05/17/25 05/17/25 History lorazepam 0.5 mg tablet 1 mg PO .qd 05/17/25 05/17/25 History meclizine 25 mg tablet 25 mg PO TID PRN dizziness 05/17/25 05/17/25 History naproxen 250 mg tablet 500 mg PO TID 05/17/25 05/17/25 History omeprazole 40 mg capsule,delayed 40 mg PO DAILY PRN GERD 05/17/25 05/17/25 History release ropinirole 2 mg tablet 2 mg PO QHS 05/17/25 05/17/25 History Allergies Allergy/AdvReac Type Severity Reaction Status Date / Time gabapentin (Neurontin) Allergy Intermediate Unknown Verified 05/17/25 01:38 sulfadiazine Allergy Unknown Unknown Verified 05/17/25 01:38 codeine Allergy Unknown Verified 05/17/25 01:38 Bee stings Allergy Severe Unknown Uncoded 05/17/25 01:37 Vital Signs Vital Signs - 24 hr 05/17/25 01:30 05/17/25 01:30 05/17/25 01:34 Temperature 97.9 F Pulse Rate 84 84 Respiratory Rate 20 20 Blood Pressure 140/86 140/82 Pulse Oximetry 99 99 99 Oxygen Delivery Room Air Room Air 05/17/25 04:00 05/17/25 04:29 Temperature 97.8 F Pulse Rate 90 Respiratory Rate 14 18 Blood Pressure 125/67 Pulse Oximetry 97 Oxygen Delivery Room Air Exam Const: General: comfortable and no acute distress HENMT: Face/Nose/Sinus: Normal nares present Mouth: Yes moist mucous membranes Eyes: General: appearance normal, both eyes and all related structures Sclera: sclerae normal Neck: Neck: supple Resp: Effort & Inspection: normal respiratory effort Auscultation: clear to auscultation bilaterally Cardio: Rate: regular rate Rhythm: regular rhythm GI: GI Palp: Yes Soft to palpation Auscultation: normal bowel sounds Skin: General skin exam: normal color and no rashes or lesions noted Neuro: Speech: normal speech Motor exam (neuro): 5/5 motor strength present throughout Other: mental status waxes and wanes Psych: Other: mental status waxes and wanes, behavioral issues at times H&P: Results Labs Labs: Short CBC 05/17/25 Range/Units 02:33 WBC 9.5 (4.8-10.8) K/mm3 Hgb 13.7 (11.7-13.8) g/dL Hct 41.9 (35.0-42.0) % Plt Count 364 (150-420) K/mm3 BMP 05/17/25 02:33 Sodium 141 Potassium 2.9 L Chloride 98 Carbon Dioxide 32 H BUN 27 H D Creatinine 1.11 H Glucose 107 Calcium 9.8 Cardiac Enzymes 05/17/25 Range/Units 02:33 Troponin I < 0.012 (0.000-0.034) ng/mL Liver Function 05/17/25 Range/Units 02:33 Total Bilirubin 0.5 (0.2-1.3) mg/dL AST 28 (14-36) U/L ALT 13 (6-35) U/L Alkaline Phosphatase 137 H (38-126) U/L Albumin 3.9 (3.5-5.1) g/dL Urine 05/17/25 Range/Units 02:00 Urine Color Light yellow (Yellow) Urine Appearance Clear (Clear) Urine pH 5.5 (5.0-8.0) Ur Specific [place] 1.020 (1.010-1.020) Urine Protein Negative (Negative) Urine Glucose (UA) Negative (Negative) Assessment and Plan Assessment and plan (1) AMS (altered mental status): Qualifiers: Altered mental status type: unspecified Qualified Code(s): R41.82 - Altered mental status, unspecified Code(s): R41.82 - Altered mental status, unspecified Status: Acute Assessment and Plan: patient has known NPH as a result of severe cervical stenosis patient is to have a cervical spine surgery on 05/27/25 followed by a shunt if necessary patient has waxing and waning mental status Head CT without new acute findings monitor (2) Acute UTI: Code(s): N39.0 - Urinary tract infection, site not specified Status: Acute Assessment and Plan: UA shows 1+ leukocyte esterase, 4+ bacteria and WBC clumps f/u urine cultures f/u blood cultures continue IV ceftriaxone s/p IV fluids (3) Hypokalemia: Code(s): E87.6 - Hypokalemia Status: Acute Assessment and Plan: k 2.9 on arrival daughter reports patient was recently started on furosemide s/p IV KCL 20 meq repeat k level 3.2 give IV KCL 20 meq again start on PO KCL 20 meq daily AM labs (4) NPH (normal pressure hydrocephalus): Code(s): G91.2 - (Idiopathic) normal pressure hydrocephalus Status: Acute Assessment and Plan: known NPH diagnosed 4 months ago due to severe cervical spinal stenosis patient is scheduled to have c-spine surgery on 05/27 followed by shunt placement if needed per daughter patient appears at her normal baseline at this time (5) AAYUSH (acute kidney injury): Code(s): N17.9 - Acute kidney failure, unspecified Status: Acute Assessment and Plan: BUN 27, cr 1.11 on admission s/p IV fluids improved on repeat labs AM labs (6) HTN (hypertension): Code(s): I10 - Essential (primary) hypertension Status: Acute Assessment and Plan: continue home amlodipine monitor BP and adjust as indicated (7) Hypothyroid: Code(s): E03.9 - Hypothyroidism, unspecified Status: Acute Assessment and Plan: continue home levothyroxine (8) Gout: Code(s): M10.9 - Gout, unspecified Status: Acute Assessment and Plan: no signs of an acute flare continue allopurinol Quality VTE Prophylaxis VTE prophylaxis: pharmacologic ordered
[2025-05-17] MEDS: buPROPion HCL XL (24 HR) 150 MG TABCR 300 MG PO (08:37)
[2025-05-17] MEDS: ENOXAPARIN 40 MG/0.4 ML SYRINGE SUB-Q (08:37)
[2025-05-17] MEDS: LEVOTHYROXINE SODIUM 100 MCG TABLET PO (08:38)
[2025-05-17] MEDS: ASPIRIN 81 MG ENTERIC TABLET PO (08:38)
[2025-05-17] MEDS: PANTOPRAZOLE 40 MG TABLET PO ×2 (08:38→17:23)
[2025-05-17] MEDS: NAPROXEN 250 MG TABLET 500 MG PO ×2 (08:46→17:23)
--- OUTSIDE RECORDS SUMMARY | 2025-05-17 10:01 | XMS_ITS | Clinical Summary ---
Author Organization [facility] Address [place] [address] Care Team Providers Care Apartment Rental Agent Name Role Phone SelamAmbar garner EDWIN Primary Care Provider [phone] Social History Tobacco Use Types Packs/Day Years [...] Description 05/27/2025 8:30 AM CDT Hospital Encounter [facility] [address], [place] [id number] Elbert Hansen MD [address] [place] [address] 05/27/2025 8:30 AM CDT - 05/27/2025 10:34 AM CDT Surgery [facility] [place] [address] [place] [address] Elbert Hansen MD [address] [place], [place] [address] DISCECTOMY AND FUSION SPINAL ANTERIOR CERVICAL Scheduled [...] Date Diagnosed Date Autogenerated Problem 05/14/[address] [place] [address] MEDICARE Care Teams Apartment Rental Agent Relationship Specialty Start Date End Date Ambar Doss FNP [facility] [place] [address] PCP - General NURSE PRACTITIONER 07/12/23
--- OUTSIDE RECORDS SUMMARY | 2025-05-17 10:01 | XMS_ITS | Clinical Summary ---
Author Organization [employer] Address [address] [place] [address] [address] [place] [address] Care Team Providers Care Staffing Coordinator Name Role Phone Provider, No Attributed RESOURCE Unavailable Unavailable Yasmani Gutierrez MD Primary Care Provider [phone] Allergies Active Allergy Reactions Criticality Noted Date [...] Problem Noted Date Diagnosed Date Asthma ([facility]) 05/27/2019 Gastroesophageal reflux disease 05/27/2019 [...] on file Legal Sex Female 10:49 AM [employer] Gender Identity Not on file Sexual Orientation [...] 70 - 100 mg/dL 05/27/2019 7:40 PM [facility] BUN 8(L) 10 - 20 mg/dL 05/27/2019 7:40 PM [facility] Creatinine 0.70 0.57 - 1.11 mg/dL 05/27/2019 7:40 PM [facility] BUN/Creatinine Ratio 11.4 8.0 - 36.0 05/27/2019 7:40 PM [facility] Sodium 140 136 - 145 meq/L 05/27/2019 7:40 PM [facility] Potassium 3.9 3.5 - 5.1 meq/L 05/27/2019 7:40 PM [facility] Chloride 99 98 - 107 meq/L 05/27/2019 7:40 PM [facility] CO2 29 22 - 29 meq/L 05/27/2019 7:40 PM [facility] Anion Gap with K 16 6 - 18 meq/L 05/27/2019 7:40 PM [facility] Calcium 9.9 8.4 - 10.2 mg/dL 05/27/2019 7:40 PM [facility] Protein Total 7.5 6.4 - 8.3 g/dL 05/27/2019 7:40 PM [facility] Albumin 4.1 3.5 - 5.0 g/dL 05/27/2019 7:40 PM [facility] Alkaline Phosphatase 166(H) 40 - 150 U/L 05/27/2019 7:40 PM [facility] AST - SGOT 21 8 - 34 U/L 05/27/2019 7:40 PM [facility] ALT - SGPT 17 10 - 41 U/L 05/27/2019 7:40 PM [facility] Bilirubin Total 0.3 0.2 - 1.2 mg/dL 05/27/2019 7:40 PM [facility] Age 68 Years 05/27/2019 7:40 PM [facility] eGFR Non- 83 mL/min/1. 73m2 05/27/2019 7:40 PM CDT [facility] eGFR >90 mL/min/1. 73m2 05/27/2019 7:40 PM CDT [facility] Comment: The estimated Glomerular Filtration Rate [...] us Ashley PASCUAL LAB BLOOD Final Result [facility] [address] [address] from Last 3 Months or Most Recently Relevant to Health Maintenance Advance Directives For more information, please contact: [phone] * Full Code (Latest Code Status on File) Date Activated Date Inactivated Comments 04/24/2017 10:37 AM 04/25/2017 6:17 AM Care Teams Staffing Coordinator Relationship Specialty Start Date End Date Provider, No Attributed, RESOURCE [address] PCP - Attributed Provider 06/10/17 Yasmani Gutierrez MD [address] [place] [address] PCP - General 07/06/19
--- OUTSIDE RECORDS SUMMARY | 2025-05-17 10:01 | XMS_ITS | Clinical Summary ---
Author Organization [facility] Address [address] [place] [address] Care Team Providers Care [employer] Name Role Phone Yasmani Gutierrez MD Primary Care Provider [phone] Allergies Active Allergy Reactions Criticality Noted Date Comments Acetaminophen History Unknown 04/14/2019 Codeine Rash High 03/04/2015 Gabapentin Anaphylaxis High 03/04/2015 Hydrocodone Bitartrate Rash High 04/14/2019 Levofloxacin History Unknown 06/03/2015 Molindone History Unknown 04/14/2024 from [facility] list Penicillin Rash High 03/04/2015 Polymyxin B History Unknown 04/14/2024 from [email or web address] allergy list Sulfa (Sulfonamide Antibiotics) Vomiting 03/04/2015 Thyrotropin History Unknown 04/14/2024 from [facility] allergy list Medications acetaminophen (TYLENOL) 500 mg tablet Take by mouth every 6 (six) hours. 7 Active albuterol HFA 90 mcg/actuation inhaler Take 1 Inhaler by mouth as needed. 7 Active diclofenac sodium (VOLTAREN) 1 % gel every 6 (six) hours. 3 Active meclizine (ANTIVERT) 25 mg tablet Take 1 tablet (25 mg total) by mouth 3 (three) times a day as needed for Dizziness. 30 tablet 3 Active allopurinoL (ZYLOPRIM) 300 mg tablet TAKE 1 TABLET BY MOUTH ONCE DAILY FOR GOUT PAIN FOR 90 DAYS Strength: 300 mg 90 tablet 4 Active levothyroxine (SYNTHROID, LEVOTHROID) 100 mcg tablet Take 1 tablet by mouth once daily 90 tablet 3 4 Active furosemide (LASIX) 40 mg tablet Take 1 tablet (40 mg total) by mouth 1 (one) time a day. As needed 2 Active aspirin 81 mg EC tablet Take 1 tablet (81 mg total) by mouth 1 (one) time a day. 4 Active buPROPion (WELLBUTRIN XL) 300 mg 24 hr tablet Take 1 tablet (300 mg total) by mouth 1 (one) time a day at the same time every day. 30 tablet 11 4 Active ketoconazole (NIZORAL) 2 % shampoo qod 240 mL 5 4 Active EPINEPHrine (EPIPEN) 0.3 mg/0.3 mL AtIn Inject 0.3 mLs (0.3 mg total) into the muscle 1 (one) time a day as needed (anaphylaxis) . 2 each 5 4 Active clindamycin (CLEOCIN) 300 mg capsule 4 Active omeprazole (PRILOSEC) 40 mg capsule Take 1 capsule (40 mg total) by mouth 1 (one) time a day. 90 capsule 2 4 Active DULoxetine (CYMBALTA) 60 mg capsule Take 1 capsule (60 mg total) by mouth 1 (one) time a day. 30 capsule 3 5 Active DULoxetine (CYMBALTA) 30 mg capsule Take 1 capsule by mouth once daily 90 capsule 5 Active losartan-hydroc hlorothiazide (HYZAAR) 100-25 mg per tablet Take 1 tablet by mouth once daily 90 tablet 5 Active triamcinolone (KENALOG) 0.1 % ointment APPLY TO ITCHY AREAS OF THE ARMS AND THE THIGHS TWICE DAILY FOR 2 WEEKS ONLY. THEN ALTERNATE WITH OTC ITCH SPRAY 5 Active lidocaine (LIDODERM) 5 % APPLY 2 PATCHES TOPICALLY DAILY,LEAVE ON MOST PAINFUL AREA FOR UP TO 12 HOURS Active LORazepam (ATIVAN) 0.5 mg tablet Take 1 tablet (0.5 mg total) by mouth every 8 (eight) hours as needed for Anxiety. 60 tablet 3 5 Active rOPINIRole (REQUIP) 2 mg tabletIndicatio ns:Restless leg syndrome Take 1 tablet (2 mg total) by mouth in the morning and 1 tablet (2 mg total) in the evening and 1 tablet (2 mg total) before bedtime. 180 tablet 5 Active alendronate (FOSAMAX) 70 mg tablet Take 1 tablet (70 mg total) by mouth once a week. 12 tablet 5 Active alendronate (FOSAMAX) 70 mg tablet Take 1 tablet (70 mg total) by mouth once a week. 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 Marte's esophagus 05/27/2019 Gastroesophageal reflux disease 05/27/2019 Elevated liver enzymes 05/27/2019 Generalized anxiety disorder 05/27/2019 Hypothyroidism (acquired) 05/27/2019 Major depressive disorder, single episode 2018 Obstructive sleep apnea 05/27/2019 Fusion of spine of lumbar region 05/27/2019 Other urethritis 05/27/2019 Essential hypertension 05/27/2019 Peripheral arterial disease 05/27/2019 Primary osteoarthritis of left hip 05/27/2019 Restless legs syndrome 05/27/2019 Skin cancer, basal cell 05/27/2019 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 05/27/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 02/09 Anxiety state 02/26/2014 Myalgia and myositis 02/26/2014 Other depressive disorder 02/26/2014 Encounters Date Type Department Care Team Description 04/26/2025 Orders Only [facility] [address] [place] [address] Natali Subramanian RN from Last 3 Months Immunizations Immunization Administration Dates Next Due FLU VACCINE QUADRIVALENT ADJUVANTED PF 2,06/30/2021,05/16/2020 FLU VACCINE QUADRIVALENT PF 05/21/2016 Flu Vaccine, Patient Reported 05/16/2020 Pneumococcal Conjugate 20 Valent 02/01/2023 Pneumococcal Polysaccharide 06/30/2021, 7 Tdap 02/01/2023 Social History Tobacco Use Types Packs/Day Years Used Date Smoking Tobacco: Former Cigarettes Q uit: 05/27/1970 Smokeless Tobacco: Never Tobacco Cessation:Counseling Given: Not Answered [facility] Utilities Answer Date Recorded In the past 12 months has th e electric, gas, oil, or water company threatened to shut off services in your home? No 03/05/2024 Humiliation, Afraid, Rape, and Kick questionnair e Answer Date Recorded Within the last year, have y ou been afraid of your partner or ex-partner? No 02/01/2023 Within the last year, have y ou been humiliated or emotionally abused in other ways by your partner or ex-partner? No Within the last year, have y ou been kicked, hit, slapped, or otherwise physically hurt by your partner or ex-partner? No 02/01/2023 Within the last year, have y ou been raped or forced to have any kind of sexual activity by your partner or ex-partner? No 02/01/2023 Social Connection and Isolation Panel [NHANES] A nswer Date Recorded In a typical week, how many times do you talk on the phone with family, friends, or neighbors? Twice a week 03/05/2024 How often do you get together with friends or re latives? Once a week 03/05/2024 How often do you attend episcopalian or christian serv ices? Never 03/05/2024 Do you belong to any clubs o r organizations such as episcopalian groups, unions, fraternal or athletic groups, or school groups? No 03/05/2024 How often do you attend meet ings of the clubs or organizations you belong to? Never 03/05/2024 Are you , , di vorced, , never , or living with a partner? 03/05/2024 AUDIT-C Answer Date Recorded Q1: How often do you have a drink containing alcohol? Never 03/05/2024 Q2: How many drinks containi ng alcohol do you have on a typical day when you are drinking? Patient does not drink Q3: How often do you have si x or more drinks on one occasion? Never 03/05/2024 Overall Financial Resource Strain (CARDIA) Answe r Date Recorded How hard is it for you to pa y for the very basics like food, housing, medical care, and heating? Not hard at all 03/05/2024 [facility] - Occupational Stress Questionnaire Answer Date Recorded Do you feel stress - tense, restless, nervous, or anxious, or unable to sleep at night because your mind is troubled all the time - these days? Not at all 03/05/2024 Exercise Vital Sign Answer Date Recorde d On average, how many days pe r week do you engage in moderate to strenuous exercise (like a brisk walk)? 0 days 03/05/2024 On average, how many minutes do you engage in exercise at this level? 0 min 03/05/2024 Hunger Vital Sign Answer Date Recorded Within the past 12 months, y ou worried that your food would run out before you got the money to buy more. Never true 03/05/20 24 Within the past 12 months, t he food you bought just didn't last and you didn't have money to get more. Never true 03/05/2024 PRAPARE - Transportation Answer Date Re corded In the past 12 months, has l ack of transportation kept you from medical appointments or from getting medications? No 02/10 In the past 12 months, has l ack of transportation kept you from meetings, work, or from getting things needed for daily living? No 03/05/2024 Housing Stability Vital Sign Answer Simon e Recorded In the last 12 months, was t here a time when you were not able to pay the mortgage or rent on time? No 02/01/2023 In the last 12 months, how many places have you lived? 1 02/01/2023 In the last 12 months, was t here a time when you did not have a steady place to sleep or slept in a senior care (including now)? No 02/01/2023 Housing Stability Vital Sign Answer Simon e Recorded In the last 12 months, was t here a time when you were not able to pay the mortgage or rent on time? No 03/05/2024 In the past 12 months, how m any times have you moved where you were living? 1 03/05/2024 At any time in the past 12 m [facility], were you homeless or living in a senior care (including now)? No 03/05/2024 Depression Answer Date Recorded PHQ-2 Screening Total 2 2024 Interpersonal Safety Screen Answer Date Recorded Are you in a relationship wh ere you have been physically or emotionally hurt or threatened? No 03/05/2024 Comments No Sex and Gender Information Value Date Recorded Sex Assigned at Female 05/04/2022 9:30 AM CDT Legal Sex Female 6:04 PM CDT Gender Identity Female 05/04/2022 9:30 AM CDT Sexual Orientation Not on file Last Filed Vital Signs Vital Sign Reading Time Taken Comments Blood Pressure 126/80 2024 9:41 AM CDT Pulse 92 2024 9:41 AM CDT Temperature 37.1 C (98.7 F) 07/03/2024 10:16 AM CLINIC CLERK Respiratory Rate 18 2024 9:41 AM CDT Oxygen Saturation 94% 05/04/2022 11: 14 AM CDT Inhaled Oxygen Concentration - - Weight 90.6 kg (199 lb 11.2 oz) 2024 9:41 AM CDT Height 157.5 cm (5' 2) 2024 9:41 AM CDT Body Mass Index 36.53 2024 9:41 AM CDT Plan of Treatment Health Maintenance Due Date Last Done Comments Bone Density Screening [address] Colonography 12/25/1995 FIT-DNA (Cologuard) 12/25/1995 FIT/gFOBT 12/25/1995 RSV Vaccine (1 - Risk 60-74 years 1-dose series) 2010 Mammogram 03/01/2024 03/01/2023 Medicare Annual Wellness Visit (Subsequent) 03/05/2025 03/05/2024, 02/01/2023, 06/30/2021 COVID-19 Vaccines ( - season) 2025 Influenza vaccines (#1) 2025 06/26/20, 06/30/2021, 04/26/2021, Additional history exists Herpes zoster vaccines (1 of 2) 2025 Postponed from 2000 (Patient Refused) Colonoscopy 04/24/2027 04/24/2017 Colorectal Cancer Screening 04/24/2027 Td,Tdap vaccines (2 - Td or Tdap) 02/01/2033 02/01/2023 Pneumococcal vaccines: 50+ years Completed 02/01/2023, 06/30/2021, 06/04/2017 HPV vaccines Aged Out No longer eligi ble based on patient's age to complete this topic Meningococcal serogroup B vaccines Aged Out No longer eligible based on patient's age to complete this topic Procedures Procedure Name Priority Date/Time Associated Diagnosis Comments MAMMOGRAPHY Routine 03/01/2023 COLONOSCOPY Routine 04/24/2017 from Last 3 Months or Most Recently Relevant to Health Maintenance Results * MAMMOGRAPHY (03/01/2023) Mammogram Negative PROVIDE [facility] Anatomical Region Laterality Modality Other Narrative Resulting Agency Comment [facility] Provider HEALTH MAINTENANCE Final Result * COLONOSCOPY (04/24/2017) Colonoscopy diverticulo sis, follow up in [address] [facility] Abdoulaye Hanna DO HEALTH MAINTENANCE Final Resu lt [facility] [address] [place] [address], [facility] [phone] from Last 3 Months or Most Recently Relevant to Health Maintenance Care Teams [employer] Relationship Specialty Start Date End Date Yasmani Gutierrez MD [address] [place] [id number] [email or web address] PCP - General Family Medicine 05/27/19
[2025-05-17 10:05] LABS: Hematocrit 38.1 % (35.0-42.0); Hemoglobin 12.3 g/dL (11.7-13.8); Immature Granulocyte Percent A 0.4 % (0.0-0.0); Lymphocytes Absolute Auto 1.69 K/mm3 (1.10-4.50); Mean Corpuscular HGB Conc 32.3 g/dL (32-36); Mean Corpuscular Hemoglobin 29.2 pg (27.0-31.0); Mean Corpuscular Volume 90.5 fL (78.0-102.0); Nucleated Red Blood Cells Absolute Auto 0.00 K/mm3 (0.00-0.00); Nucleated Red Blood Cells Perc 0.0 % (0-0.0); Platelet Count Result 327 K/mm3 (150-420); Red Blood Count 4.21 M/mm3 (4.20-5.40); White Blood Count 8.3 K/mm3 (4.8-10.8)
[2025-05-17 11:10] LABS: Alanine Aminotransferase 12 U/L (6-35); Albumin Level 2.9 g/dL (3.5-5.1); Alkaline Phosphatase 111 U/L (38-126); Anion Gap 9 mmol/L (4-12); Aspartate Amino Transferase 24 U/L (14-36); Bilirubin,Total 0.3 mg/dL (0.2-1.3); Blood Urea Nitrogen 22 mg/dL (7-17); Calcium 8.9 mg/dL (8.4-10.2); Carbon Dioxide 29 mmol/L (22-30); Chloride 105 mmol/L (98-107); Estimated CRCL calculation 54 ml/min; Estimated Glomerular Filt Rate > 60; Glucose 122 mg/dL (65-110); Osmolality Calculated 300 mOsm/kg (285-295); Potassium 3.2 mmol/L (3.4-5.0); Sodium 143 mmol/L (137-145); Total Protein 5.9 g/dL (6.3-8.2)
[2025-05-17] MEDS: LORazepam (*CRX) 1 MG TABLET PO (20:35)
[2025-05-17] MEDS: MECLIZINE HCL 25 MG TABLET PO (20:35)
[2025-05-17] MEDS: ACETAMINOPHEN 325 MG TABLET 650 MG PO (20:35)
[2025-05-18] VITALS: BP 124/73; PULSE 93; RESP 17; TEMP 36.3; O2SAT 97
[2025-05-18] MEDS: cefTRIAXone 1 GM in SODIUM CHLORIDE 0.9% IV 50 ML 100 ML IVPB (03:29)
[2025-05-18 04:00] VITALS: BP 120/66; PULSE 88; RESP 17; TEMP 36.4; O2SAT 93
[2025-05-18] MEDS: LEVOTHYROXINE SODIUM 100 MCG TABLET PO (05:34)
[2025-05-18 05:52] LABS: Hematocrit 42.0 % (35.0-42.0); Hemoglobin 13.2 g/dL (11.7-13.8); Immature Granulocyte Percent A 0.3 % (0.0-0.0); Lymphocytes Absolute Auto 1.79 K/mm3 (1.10-4.50); Mean Corpuscular HGB Conc 31.4 g/dL (32-36); Mean Corpuscular Hemoglobin 28.6 pg (27.0-31.0); Mean Corpuscular Volume 90.9 fL (78.0-102.0); Nucleated Red Blood Cells Absolute Auto 0.00 K/mm3 (0.00-0.00); Nucleated Red Blood Cells Perc 0.0 % (0-0.0); Platelet Count Result 305 K/mm3 (150-420); Red Blood Count 4.62 M/mm3 (4.20-5.40); White Blood Count 6.4 K/mm3 (4.8-10.8)
[2025-05-18 06:05] LABS: Alanine Aminotransferase 10 U/L (6-35); Albumin Level 3.2 g/dL (3.5-5.1); Alkaline Phosphatase 95 U/L (38-126); Anion Gap 4 mmol/L (4-12); Aspartate Amino Transferase 33 U/L (14-36); Bilirubin,Total 0.5 mg/dL (0.2-1.3); Blood Urea Nitrogen 16 mg/dL (7-17); Calcium 9.3 mg/dL (8.4-10.2); Carbon Dioxide 33 mmol/L (22-30); Chloride 106 mmol/L (98-107); Estimated CRCL calculation 59 ml/min; Estimated Glomerular Filt Rate > 60; Glucose 90 mg/dL (65-110); Magnesium 2.1 mg/dL (1.6-2.3); Osmolality Calculated 297 mOsm/kg (285-295); Potassium 4.3 mmol/L (3.4-5.0); Sodium 143 mmol/L (137-145); Total Protein 7.1 g/dL (6.3-8.2)
[2025-05-18 08:00] VITALS: BP 168/86; PULSE 85; RESP 16; TEMP 36.6; O2SAT 95
[2025-05-18] MEDS: NAPROXEN 250 MG TABLET 500 MG PO (08:06)
[2025-05-18] MEDS: POTASSIUM CHLORIDE 20 MEQ ER TABLET PO (08:08)
[2025-05-18] MEDS: PANTOPRAZOLE 40 MG TABLET PO (09:58)
[2025-05-18] MEDS: buPROPion HCL XL (24 HR) 150 MG TABCR 300 MG PO (09:59)
[2025-05-18] MEDS: ASPIRIN 81 MG ENTERIC TABLET PO (09:59)
[2025-05-18] MEDS: ENOXAPARIN 40 MG/0.4 ML SYRINGE SUB-Q (09:59)
--- NOTE | 2025-05-18 11:39 | P.DS_ITS ---
DS: Admitting Diagnosis Discharge Date 05/18/2025 Admitting Diagnosis Altered Mental Status DS: Discharge Diagnosis Discharge Diagnosis (1) AMS (altered mental status): Qualifiers: Altered mental status type: unspecified Qualified Code(s): R41.82 - Altered mental status, unspecified Code(s): R41.82 - Altered mental status, unspecified Status: Acute Assessment and Plan: patient has known NPH as a result of severe cervical stenosis patient is to have a cervical spine surgery on 05/27/25 followed by a shunt if necessary patient has waxing and waning mental status Head CT without new acute findings monitor (2) Acute UTI: Code(s): N39.0 - Urinary tract infection, site not specified Status: Acute Assessment and Plan: UA shows 1+ leukocyte esterase, 4+ bacteria and WBC clumps f/u urine cultures f/u blood cultures continue IV ceftriaxone, switch to PO Cefdinir on discharge s/p IV fluids (3) Hypokalemia: Code(s): E87.6 - Hypokalemia Status: Acute Assessment and Plan: k 2.9 on arrival daughter reports patient was recently started on furosemide s/p IV KCL 20 meq repeat k level 3.2 give IV KCL 20 meq again start on PO KCL 20 meq daily since patient is on furo[place]ide at the [facility] (4) NPH (normal pressure hydrocephalus): Code(s): G91.2 - (Idiopathic) normal pressure hydrocephalus Status: Acute Assessment and Plan: known NPH diagnosed 4 months ago due to severe cervical spinal stenosis patient is scheduled to have c-spine surgery on 05/27 followed by shunt placement if needed per daughter patient appears at her normal baseline at this time (5) AAYUSH (acute kidney injury): Code(s): N17.9 - Acute kidney failure, unspecified Status: Acute Assessment and Plan: BUN 27, cr 1.11 on admission s/p IV fluids improved on repeat labs (6) HTN (hypertension): Code(s): I10 - Essential (primary) hypertension Status: Acute Assessment and Plan: continue home amlodipine monitor BP and adjust as indicated (7) Hypothyroid: Code(s): E03.9 - Hypothyroidism, unspecified Status: Acute Assessment and Plan: continue home levothyroxine (8) Gout: Code(s): M10.9 - Gout, unspecified Status: Acute Assessment and Plan: no signs of an acute flare continue allopurinol DS: Summary Hospital Course Reason for hospitalization: altered mental status Hospital Course: Patient is a 74 year old female with PMH of NPH, spinal stenosis, hypothyroidism, HTN and RLS. [facility] due to altered mental status. Patient was acting out at the prison and the PD had to come and help with the situation. Per the daughter the patient was diagnosed approximately four months ago with NPH due to severe cervical spinal stenosis. She has had behavioral changes, waxing and waning mental status, ataxia, repeated falls. Patients daughter also reports that this is how she acts when she has had UTI's in the past. In the ER the patients head CT did not show any acute changes. Patients lab work showed a BUN 27, Cr 1.11 and K 2.9. UA showed 1+ leukocyte esterase, 4+ bacteria and WBC clumps. Patient was given IV fluids and IV ceftriaxone. Patient's AAYUSH improved with IV fluids. Patient's potassium level improved with Oral replacement. Patient started on 20 meq kcl daily as she is on furosemide at the prison. Patient did not display any behaviors while at the hospital. Patient will be discharged on 7 more doses of Cefdinir as we await the urine culture. Patient is scheduled to have surgery later this month per the daughter so treating the possible UTI will allow the surgery to not be postponed. Orders given for the prison to recheck a UA with reflex to culture and a BMP in a week. Patient was discharged back to the prison and will follow up with her PCP within 1 week of discahrge. Time Spent with Patient Time attestation: Total time spent providing and/or coordinating discharge services: 35 Minutes Exam Const: General: comfortable and no acute distress HENMT: Face/Nose/Sinus: Normal nares present Mouth: Yes moist mucous membranes Eyes: General: appearance normal, both eyes and all related structures Sclera: sclerae normal Neck: Neck: supple Resp: Effort & Inspection: normal respiratory effort Auscultation: clear to auscultation bilaterally Cardio: Rate: regular rate Rhythm: regular rhythm GI: Auscultation: normal bowel sounds Skin: General skin exam: normal color and no rashes or lesions noted Neuro: Speech: normal speech Motor exam (neuro): 5/5 motor strength present throughout Other: mental status waxes and wanes Psych: Other: mental status waxes and wanes, behavioral issues at times DS: Data Data Completed and Pending Labs on day of discharge: Labs from last 24 hours 05/18/25 05:46 WBC 6.4 RBC 4.62 Hgb 13.2 Hct 42.0 MCV 90.9 MCH 28.6 MCHC 31.4 L RDW 13.3 Plt Count 305 MPV 9.2 Immature Gran % (Auto) 0.3 H Neut % (Auto) 56.5 Lymph % (Auto) 27.8 [place] % (Auto) 8.7 Eos % (Auto) 6.2 H Baso % (Auto) 0.5 Lymph # (Auto) 1.79 [place] # (Auto) 0.56 Eos # (Auto) 0.40 Baso # (Auto) 0.03 Abs Immat Gran (auto) 0.02 H Absolute Neuts (auto) 3.64 Absolute Nucleated RBC 0.00 Nucleated RBC % 0.0 Sodium 143 Potassium 4.3 Chloride 106 Carbon Dioxide 33 H Anion Gap 4 BUN 16 Creatinine 0.78 Estim Creat Clear Calc 59 Estimated GFR > 60 Glucose 90 Calculated Osmolality 297 H Calcium 9.3 Magnesium 2.1 Total Bilirubin 0.5 AST 33 ALT 10 Alkaline Phosphatase 95 Total Protein 7.1 Albumin 3.2 L Discharge Plan Discharge Attending physician on discharge: David Ruiz Consulting providers: Aminata Dunn; Rafael Flores; Duncan Ritter V.; Hood Galicia Discharging Clinician: Aminata Dunn Patient Disposition: [facility] Skilled Nursing/Asst Living Activity: as tolerated Diet: heart healthy Discharge Instructions: Please collect a UA with reflex to culture by straight cath on 05/21/2025 to ensure resolution of infection prior to patients scheduled surgery Please send a BMP on 05/24/2025 to check patients kidney function and potassium level Patient Instructions: Antibiotic Form, Potassium Supplement (By mouth), Cefdinir (By mouth), Urinary Tract Infection in Women (DC), Fall Prevention for Older Adults (DC) Patient Language: Setswana Stand Alone Forms: General Discharge Information, Usp Discharge Discharge Medications: New cefdinir 300 mg capsule 300 mg PO Q12H Qty: 7 0RF Rx Instructions: start on 05/18/2025 at 2100 potassium chloride [K-Tab] 20 mEq tablet extended release 20 meq PO DAILY Qty: 30 0RF Continued allopurinol 300 mg tablet 300 mg PO QHS aspirin 81 mg tablet,delayed release (DR/EC) 81 mg PO .qd bupropion HCl 300 mg tablet extended release 24 hr 300 mg PO .qd duloxetine 60 mg capsule,delayed release(DR/EC) 60 mg PO QHS levothyroxine 100 mcg tablet 100 mcg PO .qd meclizine 25 mg tablet 25 mg PO TID PRN (Reason: dizziness) ropinirole 2 mg tablet 2 mg PO QHS naproxen 250 mg tablet 500 mg PO TID furosemide [Lasix] 40 mg tablet 40 mg PO DAILY amlodipine 5 mg tablet 5 mg PO DAILY alendronate 70 mg tablet 70 mg PO WEEKLY Rx Instructions: LAST GIVEN 05/11/2025 omeprazole 40 mg capsule,delayed release(DR/EC) 40 mg PO DAILY PRN (Reason: GERD) albuterol sulfate [Ventolin HFA] 90 mcg/actuation HFA aerosol inhaler 1 inh inhalation Q4H PRN (Reason: wheezing) Changed lorazepam 0.5 mg tablet 1 mg PO .qd PRN (Reason: Agitation) Qty: 14 0RF Date of admission: 05/17/25 03:46 Primary Care Provider: JulianePeter Admitting Provider: David Ruiz Attending physician on admission: David Ruiz Condition: Stable Quality VTE Prophylaxis VTE prophylaxis: pharmacologic ordered
[2025-05-18 12:00] VITALS: BP 148/76; PULSE 96; RESP 20; TEMP 36.7; O2SAT 96
--- NOTE | 2025-05-18 14:15 | PC.NURSE ---
Discharge instructions called to Puja at [facility]. Nae from [facility] arrived with wheelchair, patient takemn per wc off floor to SNF
== END 2025-05-18 14:15 ==
LOC: CHSED 03:43 → CHS2ND 09:16
PROVIDERS: Nurse Practitioner Adult Health; Admitting Provider Internal Medicine; Emergency Provider Emergency Medicine; PCP Internal Medicine; Visit Provider Internal Medicine
DX: N39.0 Urinary tract infection, site not specified (principal); N17.9 Acute kidney failure, unspecified; E87.6 Hypokalemia; R41.82 Altered mental status, unspecified; G91.2 (Idiopathic) normal pressure hydrocephalus; M48.02 Spinal stenosis, cervical region; I10 Essential (primary) hypertension; E03.9 Hypothyroidism, unspecified; G25.81 Restless legs syndrome; M10.9 Gout, unspecified; Z87.891 Personal history of nicotine dependence; Z79.51 Long term (current) use of inhaled steroids; Z79.82 Long term (current) use of aspirin
CPT/HCPCS: 36415; 70450; 71045; 80053; 81001; 83605; 83735; 84484; 85025; 87040; 87086; 93005; 96365; 96366; 96367; 96372; 99285; A9270; G0378; J0696; J1650; J3480; J7030

== ENCOUNTER 2025-05-19 19:59 | Emergency (ER) | payer MEDICARE, OTHER, SELFPAY ==
--- NOTE | 2025-05-19 20:00 | ED.AMS ---
HPI - Altered Mental Status General Chief Complaint: Unspecified Stated Complaint: combative Time Seen by Provider: 05/19/25 19:59 Source: patient and EMS Mode of arrival: ambulatory Limitations: other (Baseline dementia process) History of Present Illness HPI narrative: Patient is a 74-year-old female who lives at the nursing facility and has stimulated a problem this evening by pulling the fire alarm. Patient acts out doing these things to get attention at the nursing facility. Patient has no complaints. She was sent to the ER due to the fact that she was causing trouble. PD had to come. This is the 2nd time in 2 weeks she is in the ER for the same thing causing difficulties at the nursing facility. MD complaint: other Onset (ago): hour(s) (One) Timing confirmed by: caregiver Severity: moderate Consistency of symptoms: waxing and waning Context: other (Patient pulled the fire alarm this evening and caused trouble at the nursing facility so they sent her in for evaluation) Associated symptoms: denies other symptoms Treatments prior to arrival: other (None) Related Data Home Medications ?Medication ?Instructions ?Recorded ?Confirmed ?Last Taken ?Type albuterol sulfate 90 mcg/actuation 1 inh inhalation Q4H PRN wheezing 05/17/25 05/17/25 Unknown History aerosol inhaler (Ventolin HFA) alendronate 70 mg tablet 70 mg PO WEEKLY 05/17/25 05/17/25 Unknown History allopurinol 300 mg tablet 300 mg PO QHS 05/17/25 05/17/25 Unknown History amlodipine 5 mg tablet 5 mg PO DAILY 05/17/25 05/17/25 Unknown History aspirin 81 mg tablet,delayed 81 mg PO .qd 05/17/25 05/17/25 Unknown History release bupropion HCl 300 mg 24 hr tablet, 300 mg PO .qd 05/17/25 05/17/25 Unknown History extended release duloxetine 60 mg capsule,delayed 60 mg PO QHS 05/17/25 05/17/25 Unknown History release furosemide 40 mg tablet (Lasix) 40 mg PO DAILY 05/17/25 05/17/25 Unknown History levothyroxine 100 mcg tablet 100 mcg PO .qd 05/17/25 05/17/25 Unknown History meclizine 25 mg tablet 25 mg PO TID PRN dizziness 05/17/25 05/17/25 Unknown History naproxen 250 mg tablet 500 mg PO TID 05/17/25 05/17/25 Unknown History omeprazole 40 mg capsule,delayed 40 mg PO DAILY PRN GERD 05/17/25 05/17/25 Unknown History release ropinirole 2 mg tablet 2 mg PO QHS 05/17/25 05/17/25 Unknown History Allergies Allergy/AdvReac Type Severity Reaction Status Date / Time gabapentin (Neurontin) Allergy Intermediate Unknown Verified 05/17/25 01:38 sulfadiazine Allergy Unknown Unknown Verified 05/17/25 01:38 codeine Allergy Unknown Verified 05/17/25 01:38 Bee stings Allergy Severe Unknown Uncoded 05/17/25 01:37 Review of Systems Review of Systems: All systems reviewed & are unremarkable except as noted in HPI and below Constitutional: Constitutional: Reports no additional constitutional complaints Eyes: Eyes: Reports no additional eye complaints ENT: Reports system reviewed and no additional complaints, except as documented Cardiovascular: Cardiovascular: Reports no additional cardiovascular complaints Respiratory: Respiratory: Reports no additional respiratory complaints Gastrointestinal: Gastrointestinal: Reports no additional gastrointestinal complaints Genitourinary: Genitourinary: Reports no additional female genitourinary complaints Musculoskeletal: Musculoskeletal: Reports no additional musculoskeletal complaints Integumentary/Breasts: Skin/Breast: Reports system reviewed and no additional complaints, except as docu Neurologic: Reports system reviewed and no additional complaints, except as documented Psychiatric: Psychiatric: Reports no additional psychiatric complaints Endocrine: Endocrine: Reports no additional endocrine complaints Hematologic/Lymphatic: Hematologic/Lymphatic: Reports no additional hematologic/lymphatic complaints Allergic/Immunologic: Allergic/Immunologic: Reports no additional allergic/immunologic complaints PMFSH Social History Social History Smoking status: Former smoker Tobacco type: cigarettes Second hand tobacco smoke exposure: No Alcohol intake: never Substance use: never Lack of Transportation: No Lack of Food: Never True Current Housing: I Have Housing Concerned About Future Housing: No Difficulty Paying Gas/Electric Bills: No Difficulty Paying for Meds: No Currently Unemployed: No Education: Associate Degree Difficulty w/ Childcare or Family Care: No Spiritual care concerns: No Exam Const: General: healthy appearing Nutritional Appearance: well nourished Limitations: other limitations (Baseline dementia) HENMT: Head: normal to inspection Ears: external ears normal Face/Nose/Sinus: Normal external nose present Eyes: Conjunctivae: conjunctivae normal Pupils: Equal, round and reactive pupils present EOM: EOMs intact bilaterally Neck: Neck: normal visual inspection Chest: Chest palpation & inspection: normal inspection of the chest Resp: Effort & Inspection: normal respiratory effort and not labored Auscultation: clear to auscultation bilaterally and no crackles Cardio: Rate: regular rate Rhythm: regular rhythm Heart sounds: no murmurs GI: Inspection: non-distended GI Palp: Yes Soft to palpation and No Tenderness to palpation present (GI) Auscultation: normal bowel sounds : General: Yes bladder normal to palpation Back/Spine/Pelvis: Back: no CVA tenderness Skin: General skin exam: normal color Rashes: no rashes Wounds: no wounds Neuro: General: moves all extremities, no meningeal signs, no focal motor deficits and CN's II-XI intact bilaterally Other: Fast exam negative, NIH is 0, GCS is 15 Extrem: General: normal to inspection Psych: Affect: Anxious affect present Course Vital Signs Vital signs: Vital Signs Temperature 36.6 C 05/19/25 20:04 Pulse Rate 100 05/19/25 20:04 Respiratory Rate 16 05/19/25 20:04 Blood Pressure 136/75 05/19/25 20:04 Pulse Oximetry 90 05/19/25 20:04 Oxygen Delivery Room Air 05/19/25 20:04 Temperature 36.6 C 05/19/25 20:04 Pulse Rate 100 05/19/25 20:04 Respiratory Rate 16 05/19/25 20:04 Blood Pressure 136/75 05/19/25 20:04 Pulse Oximetry 90 05/19/25 20:04 Oxygen Delivery Room Air 05/19/25 20:04 MDM - Altered Mental Status MDM Narrative Medical decision making narrative: Patient is a 74-year-old female with acting out behaviors with [facility]. Patient has done this from time to time. We will do a workup at this time to make sure she is stable. Lab Data Attestation: I reviewed the patient's lab results. 05/19/25 20:45 05/19/25 20:45 Labs: Lab Results 05/19/25 Range/Units 20:45 WBC 9.1 (4.8-10.8) K/mm3 RBC 4.77 (4.20-5.40) M/mm3 Hgb 13.7 (11.7-13.8) g/dL Hct 43.4 H (35.0-42.0) % MCV 91.0 (78.0-102.0) fL MCH 28.7 (27.0-31.0) pg MCHC 31.6 L (32-36) g/dL RDW 13.4 (11.6-14.4) % Plt Count 329 (150-420) K/mm3 MPV 9.4 (9.2-11.8) fl Immature Gran % (Auto) 0.4 H (0.0-0.0) % Neut % (Auto) 72.2 H (50.0-70.0) % Lymph % (Auto) 18.3 (18.0-42.0) % Owen % (Auto) 6.3 (2.0-11.0) % Eos % (Auto) 2.5 (1.0-6.0) % Baso % (Auto) 0.3 (0.0-1.0) % Lymph # (Auto) 1.67 (1.10-4.50) K/mm3 Owen # (Auto) 0.57 (0.10-0.90) K/mm3 Eos # (Auto) 0.23 (0.02-0.50) K/mm3 Baso # (Auto) 0.03 (0.00-0.10) K/mm3 Abs Immat Gran (auto) 0.04 H (0.00-0.00) K/mm3 Absolute Neuts (auto) 6.57 (1.70-7.20) K/mm3 Absolute Nucleated RBC 0.00 (0.00-0.00) K/mm3 Nucleated RBC % 0.0 (0-0.0) % Sodium 143 (137-145) mmol/L Potassium 3.8 (3.4-5.0) mmol/L Chloride 104 (98-107) mmol/L Carbon Dioxide 30 (22-30) mmol/L Anion Gap 9 (4-12) mmol/L BUN 14 (7-17) mg/dL Creatinine 1.11 H (0.7-1.0) mg/dL Estim Creat Clear Calc 42 ml/min Estimated GFR 48 L (59 - ) Glucose 103 (65-110) mg/dL Calculated Osmolality 296 H (285-295) mOsm/kg Calcium 9.8 (8.4-10.2) mg/dL Total Bilirubin 0.5 (0.2-1.3) mg/dL AST 26 (14-36) U/L ALT 11 (6-35) U/L Alkaline Phosphatase 141 H (38-126) U/L Troponin I < 0.012 (0.000-0.034) ng/mL Total Protein 8.4 H (6.3-8.2) g/dL Albumin 3.9 (3.5-5.1) g/dL ECG Data EKG #1: Attestation: I personally reviewed and interpreted this ECG as follows: ECG completion date: 05/19/25 ECG completion time: 22:23 EKG Interpretation: normal rate, sinus rhythm, no ectopy, non-specific ST changes, normal QRS, normal QT and left axis Discharge Plan Discharge Clinical Impression: Acute reaction to stress Patient Disposition: Home Condition: Stable Instructions: Antibiotic Form Patient Language: Estonian Prescriptions: No Action allopurinol 300 mg tablet 300 mg PO QHS aspirin 81 mg tablet,delayed release (DR/EC) 81 mg PO .qd bupropion HCl 300 mg tablet extended release 24 hr 300 mg PO .qd duloxetine 60 mg capsule,delayed release(DR/EC) 60 mg PO QHS levothyroxine 100 mcg tablet 100 mcg PO .qd meclizine 25 mg tablet 25 mg PO TID PRN (Reason: dizziness) ropinirole 2 mg tablet 2 mg PO QHS naproxen 250 mg tablet 500 mg PO TID furosemide [Lasix] 40 mg tablet 40 mg PO DAILY amlodipine 5 mg tablet 5 mg PO DAILY alendronate 70 mg tablet 70 mg PO WEEKLY Rx Instructions: LAST GIVEN 05/11/2025 omeprazole 40 mg capsule,delayed release(DR/EC) 40 mg PO DAILY PRN (Reason: GERD) albuterol sulfate [Ventolin HFA] 90 mcg/actuation HFA aerosol inhaler 1 inh inhalation Q4H PRN (Reason: wheezing) cefdinir 300 mg capsule 300 mg PO Q12H Qty: 7 0RF Rx Instructions: start on 05/18/2025 at 2100 potassium chloride [K-Tab] 20 mEq tablet extended release 20 meq PO DAILY Qty: 30 0RF lorazepam 0.5 mg tablet 1 mg PO .qd PRN (Reason: Agitation) Qty: 14 0RF Follow-up/Referrals: Bernie,Jorge Green [Primary Care Provider] Time of Disposition: 22:25
--- NOTE | 2025-05-19 20:03 | ECG_ITS ---
Test Date: 2025-05-20 09:36:12 Measurements Intervals [place] Rate: P: GA: QRS: QRSD: T: QT: QTc: Interpretive Statements SINUS RHYTHM CONSIDER ANTERIOR INFARCT, AGE INDETERMINATE BORDERLINE ST-T WAVE ABNORMALITY- INF/HIGH LAT LEADS BASELINE ARTIFACT- I, II, AVR, AVL, AVF, V1-V6 ABNORMAL ECG Electronically Signed On 05-20-2025 10:12:46 CDT by Rafael Flores D.O.
[2025-05-19 20:04] VITALS: BP 136/75; PULSE 100; RESP 16; TEMP 36.6; O2SAT 90
--- NOTE | 2025-05-19 21:05 | PC.NURSE ---
PATIENT REQUESTED A SNACK. SANDWICH, CHIPS, CRACKERS AND WATER GIVEN. CALM AND COOPERATIVE. WATCHING TV. LAUGHING WITH STAFF
[2025-05-19 21:12] LABS: Hematocrit 43.4 % (35.0-42.0); Hemoglobin 13.7 g/dL (11.7-13.8); Immature Granulocyte Percent A 0.4 % (0.0-0.0); Lymphocytes Absolute Auto 1.67 K/mm3 (1.10-4.50); Mean Corpuscular HGB Conc 31.6 g/dL (32-36); Mean Corpuscular Hemoglobin 28.7 pg (27.0-31.0); Mean Corpuscular Volume 91.0 fL (78.0-102.0); Nucleated Red Blood Cells Absolute Auto 0.00 K/mm3 (0.00-0.00); Nucleated Red Blood Cells Perc 0.0 % (0-0.0); Platelet Count Result 329 K/mm3 (150-420); Red Blood Count 4.77 M/mm3 (4.20-5.40); White Blood Count 9.1 K/mm3 (4.8-10.8)
[2025-05-19 21:24] LABS: Alanine Aminotransferase 11 U/L (6-35); Albumin Level 3.9 g/dL (3.5-5.1); Alkaline Phosphatase 141 U/L (38-126); Anion Gap 9 mmol/L (4-12); Aspartate Amino Transferase 26 U/L (14-36); Bilirubin,Total 0.5 mg/dL (0.2-1.3); Blood Urea Nitrogen 14 mg/dL (7-17); Calcium 9.8 mg/dL (8.4-10.2); Carbon Dioxide 30 mmol/L (22-30); Chloride 104 mmol/L (98-107); Estimated CRCL calculation 42 ml/min; Estimated Glomerular Filt Rate 48; Glucose 103 mg/dL (65-110); Osmolality Calculated 296 mOsm/kg (285-295); Potassium 3.8 mmol/L (3.4-5.0); Sodium 143 mmol/L (137-145); Total Protein 8.4 g/dL (6.3-8.2)
[2025-05-19 21:36] LABS: Troponin I < 0.012 ng/mL (0.000-0.034)
--- NOTE | 2025-05-19 21:46 | PC.NURSE ---
PATIENT IS RESTING ON STRETCHER WATCHING TV AND EATING HER SNACK. NO NEEDS VOICED. CALL LIGHT IN REACH. CURTAIN LEFT OPEN TO BE ABLE TO VISUALIZE PATIENT.
--- NOTE | 2025-05-19 22:19 | PC.NURSE ---
ATTEMPTED TO CALL REPORT TO [facility]. NURSE NOT AVAILABLE
--- NOTE | 2025-05-19 22:45 | PC.NURSE ---
ATTEMPTED TO CALL REPORT TO [facility]. NO ANSWER. PATIENT IS RESTING ON STRETCHER. CALM AND COOPERATVIE. CALL LIGHT IN REACH
--- NOTE | 2025-05-19 22:53 | PC.NURSE ---
CALL PLACED TO [facility]. NO ANSWER. PATIENT IS RESTING ON STRETCHER. APPEARS TO BE SLEEPING. RESP EVEN AND UNLABORED.
--- NOTE | 2025-05-19 23:10 | PC.NURSE ---
OSIEL RODRIGUEZ, REPORTS THAT PATIENT WAS TAKEN TO ROOM 2002. 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 COULD NOT LOCATE NURSE ON UNIT. PAPERWORK WAS GIVEN TO SHANNON
[2025-05-19 23:20] VITALS: BP 140/78; PULSE 86; RESP 18; O2SAT 97
== END 2025-05-19 23:20 ==
PROVIDERS: Emergency Provider Emergency Medicine; PCP Internal Medicine
DX: F43.0 Acute stress reaction (principal); Z79.82 Long term (current) use of aspirin; Z79.899 Other long term (current) drug therapy; Z87.891 Personal history of nicotine dependence
CPT/HCPCS: 36415; 80053; 84484; 85025; 93005; 99284

== ENCOUNTER 2025-05-26 16:10 | Outpatient (NON) | payer MEDICARE, SELFPAY ==
--- OUTSIDE RECORDS SUMMARY | 2024-04-20 19:00 | XMS_ITS | Continuity of Care Document ---
Author Organization [facility] Address [address] [facility] [place] [address] Phone Care Team Providers Care Coordinator Of Genetic Services Name Role Phone Doroteo Barraza MD Unavailable [...] by oral route 2 times every week [address] UNITS - Active Cymbalta 30 mg capsule,delayed [...] Diagnoses Date Provider Providers Copied on Encounter [facility] [address] [place] [address], [id number] , [place] tel:[phone] [facility] No Information 4 Madi Sadler. [address] [place], [place], [id number] , [place]. tel:[phone] Referring Provider: Nik Mcgrath, [address] [place] [address] [address], [place], [address]. tel:[phone] [facility] [address] [place], [place], [id number] , [place] tel:[phone] [facility] No Information 4 Roel Cisse. [address], [place], [id number] , [place]. tel: [phone] Referring Provider: Raf Lawrence, [address], [place], [address] . tel:[phone] [facility] [address], [place], [place], [id number] , [place] tel: [phone] [facility] Follow Up of Post Op (chief complaint) Presence of right artificial shoulder joint Sep-2 2 Francia Velasquez. [address], [place], [id number] , [place]. tel: [phone] Referring Provider: Ron Hanson, [address] , [place], [address] . tel:[phone] [facility] [address] , [place], [place], [id number] , [place] tel: [phone] [facility] No Information Sep-0 2 Francia Velasquez. [address], [place], [place], [id number] , [place]. tel: [phone] [facility] [address], [place], [address] , [place] tel: [phone] [facility] Presence of right artificial shoulder joint Sep-0 2 Francia Velasquez. [address], [place], [place], [address] , [place]. tel: [phone] [facility] [address], [place], [place], [id number] , [place] tel: [phone] [facility] Post Op (chief complaint) Presence of right artificial shoulder jointAftercare following right shoulder joint replacement surgery Mar-0 2 Francia Velasquez. [address], [place], [place], [id number] , [place]. tel: [phone] Referring Provider: Ron Hanson, [address], [place], [address] . tel:[phone] [facility] [address], [place], [place], [id number] , [place] tel:[phone] [facility] Post Op (chief complaint) Aftercare following right shoulder joint replacement surgeryPresence of right artificial shoulder joint 2 Francia Velasquez. [address], [place], [place], [id number] , [place]. tel:[phone] Referring Provider: Ron Hanson, [address], [place], [address] . tel:[phone] [facility] [address], [place], [place], [id number] , [place] tel:[phone] [facility] No Information 2 Amaris Alves. [address], [place], [place], [id number] , [place]. tel:[phone] Referring Provider: Long Harrell, [address], [place], [address] . tel:[phone] Office/Outpa tient Vist Est 3 [facility] [address], [place], [place], [id number] , [place] tel:[phone] [facility] Right shoulder pain (chief complaint) Primary osteoarthritis, right shoulder 1 Amaris Alves. [address], [place], [place], [id number] , [place]. tel:[phone] Referring Provider: Long Harrell, [address], [place], [address] . tel:[phone] Office/Outpa tient Vist Est 3 [facility] [address], [place], [place], [address] , [place] tel:[phone] [facility] Left hip pain (chief complaint) Pain in left hipUnsp complication of internal prosth dev/grft, init Mar- 0 Amaris Alves. [address], [place], [id number] , [place]. tel: [phone] Referring Provider: Long Harrell, [address], [place], [address] . tel:[phone] [facility] [address], [place], [place], [id number] , [place] tel: [phone] [facility] SP Left CATHIE DAA 04-21-19 (chief complaint) Primary osteoarthritis of left hipStatus post total hip replacement, left Sep-2 9 Laine Morales. [address], [place], [id number] , [place]. tel: [phone] Referring Provider: Andrew Hanson, [address], [place], [address] . tel:[phone] [facility] [address], [place], [id number] , [place] tel: [phone] [facility] No Information Sep- 9 Amaris Alves. [address], [place], [place], [id number] , [place]. tel: [phone] Referring Provider: Long Harrell, [address], [place], [address] . tel:[phone] Office/Outpa tient Vist Est 3 [facility] [address], [place], [address] , [place] tel: [phone] [facility] Right arm pain (chief complaint) Pain in right shoulderCervicalgia Sep-0 9 Amaris Alves. [address], [place], [place], [address] , [place]. tel: [phone] Referring Provider: Long Harrell, [address], [place], [address] . tel:[phone] Office/Outpa tient Vist Est 3 [facility] [address], [place], [place], [address] , [place] tel:[phone] [facility] Left hip pain (chief complaint) Pain in left hip 9 Amaris Alves. [address], [place], [address] , [place]. tel:[phone] Referring Provider: Long Harrell, [address], [place], [address] . tel:[phone] Office/Outpa tient Vist Est 3 [facility] [address], [place], [place], [address] , [place] [phone] [facility] 4 month recheck, Left TSA 02/11/17 (chief complaint) Presence of left artificial shoulder joint May- 7 Amaris Alves. [address], [place], [place], [id number] , [place]. tel:[phone] Referring Provider: Long Harrell, [address], [place], [address] . tel:[phone] Office/Outpa tient Visit Est 2 [facility] [address], [place], [place], [address] , [place] tel: [phone] [facility] Follow Up of injection (chief complaint) Spinal stenosis of lumbar region, unspecified whether neurogenic claudication present 7 Sergei Kim. [address], [place], [place], [address] , [place]. tel:[phone] Referring Provider: Julio Mai, [address], [place], [address] . tel:[phone] Office/Outpa tient Visit Ext 4 [facility] [address], [place], [address] , [place] tel:[phone] [facility] asthma (chief complaint) sleep apnea (follow up) (chief complaint) Allergic rhinitis, unspecifiedObstruct des sleep apneaSevere persistent asthma, uncomplicated Sep-2 7 José Miguel Nunn. [address], [place], [place], [address] , [place]. tel:[phone] Referring Provider: Arline Hanson, [address] , [place], [address] . tel:[phone] [facility] [address], [place], [address] , [place] tel:[phone] [facility] No Information Sep-2 [facility] [place]. [address], [place], [place], [address] , [place]. tel:[phone] Len Perez. Referring Provider: Harman Yen, [address] [facility], [place], [address] . tel:[phone] Office/Outpa tient Visit Ext 4 [facility] [address], [place], [address] , [place] [phone] [facility] low back pain (chief complaint) Low back painLumbar spinal stenosis Sep-1 7 Sergei Kim. [address], [place], [place], [address] , [place]. tel:[phone] Referring Provider: Julio Mai, [address], [place], [address] . tel:[phone] [facility] [address], [place], [address] , [place] tel:[phone] [facility] SP Left TSA 02-11-17 (chief complaint) Status post total replacement of left shoulder 7 Laine Morales. [address], [place], [place], [address] , [place]. tel:[phone] Referring Provider: Andrew Hanson, [address], [place], [address] . tel:[phone] [facility] [address], [place], [place], [address] , [place] tel:[phone] [facility] SP Left TSA 02-11-17 (chief complaint) Primary osteoarthritis, left shoulderStatus post total replacement of left shoulder 7 Laine Morales. [address], [place], [place], [address] , [place]. tel:[phone] Referring Provider: Andrew Hanson, [address], [place], [address] . tel:[phone] [facility] [address], [place], [place], [address] , [place] tel:[phone] [facility] No Information 7 Amaris Alves. [address], [place], [place], [id number] , [place]. tel:[phone] Referring Provider: Long Harrell, [address], [place], [address] . tel:[phone] Office/Outpa tient Vist Est 3 [facility] [address], [place], [place], [id number] , [place] tel:[phone] [facility] Left shoulder pain (chief complaint) Arthritis of left shoulder region 7 Amaris Alves. [address], [place], [place], [address] , [place]. tel:[phone] Referring Provider: Julio Mai, [address], [place], [address] . tel:[phone] Office Visit New Level 3 [facility] [address] [place] [address], [id number] , [place] tel: [phone] [facility] shoulder pain (chief complaint) Pain in left shoulderArthritis of left shoulder region 7 Sergei Kim. [address] [place] [address], [id number] , [place]. tel: [phone] Referring Provider: Len Basilio, [address] [place], [address] . tel:[phone] Office/Outpa tient Visit Ext 4 [facility] [address] , [place], [place], [address] , [place] tel: [phone] [facility] asthma (chief complaint) sleep apnea (follow up) (chief complaint) Obstructive sleep apneaSevere persistent asthma with (acute) exacerbationDyspnea , unspecified 7 José Miguel Nunn. [address] [place] [address], [id number] , [place]. tel:[phone] Referring Provider: Arline Hanson, [address] [facility], [place], [address] . tel:[phone] Office Visit New Level 5 [facility] [address] [place] [address], [id number] , [place] tel: [phone] [facility] sleep apnea (consult) (chief complaint) cough (chief complaint) asthma (chief complaint) SnoringObstructive sleep apneaSevere persistent asthma with (acute) exacerbationAllergi c rhinitis, unspecified 7 José Miguel Nunn. [address] , [place], [place], [address] , [place]. tel:[phone] Referring Provider: Arline Hanson, [address] [facility], [place], [address] . tel:[phone] Prevent Exam 40-64 Years [facility] [address] [place], [place], [address] , [place] tel: [phone] [facility] annual exam (chief complaint) ROUTINE MEDICAL EXAMUnspecified essential hypertensionUnspeci fied hypothyroidismGout, unspecifiedMyalgia and myositis, unspecifiedDepressi ve disorder, not elsewhere classifiedAnxiety state, unspecifiedMammogra m, ScreeningRoutine No Bake Molder Examination 4 Sergei Choudhury. [address] , [place], [place], [id number] , [place]. tel: [phone] Referring Provider: Kei Dubois, [address] , [place], [address] . tel:[phone] Family History Family Member Type Diagnosis Age At Onset Father Problem (finding) Cancer, skin Mother Problem (finding) congestive heart failur e Payers Payer name Insurance type Covered green party ID Nirav arteaga(s) [place] [id number] [facility] [id number] Social History Type Description Quantity Date Captured Comments Sex Female Smoking Status No Information Chief Complaint And Reason For Visit No Information Reason For Referral Reason For Referral No Information Plan Of Treatment Date Type Action Status Goal Depression scree sharee. Due on due Goal Sigmoidoscopy. Due on due Goal Annual Wellness Visit. Due on due Goal Pneumococcal vac cine. Due on due Goal Tdap. Due on due Goal Zoster vaccine ( 1st). Due on due Goal FOBT. Due on due Goal Unhealthy drug u se screening. Due on due Goal Fall Risk. Due on due Goal Colonoscopy. Due on 022 due Goal Zoster vaccine. Due on due Goal FIT-DNA. Due on due Goal Advance Care Denise nning. Due on due Goal Reviewed BMI. Due on 2021 due Goal Lipid panel. Due on due Goal Mammogram. Due on due Goal CT-Colonography. Due on due Goal Hepatitis C scre ening. Due on due Goal Influenza vaccine. Due on due Goal FIT. Due on due Goal DEXA scan. Due on due Goal Td vaccine. Due on due Goal FIT-DNA. Due on due Goal FOBT. Due on due Goal FIT. Due on due Goal Annual Wellness Visit. Due on due Goal Sigmoidoscopy. Due on due Goal Lipid panel. Due on due Goal Mammogram. Due on due Goal Hepatitis C scre ening. Due on due Goal Pneumococcal vac cine. Due on due Goal Zoster vaccine. Due on due Goal Fall Risk. Due on due Goal Colonoscopy. Due on due Goal Reviewed BMI. Due on 2021 due Goal Influenza vaccine. Due on due Goal Td vaccine. Due on due Goal DEXA scan. Due on due Goal Tdap. Due on due Goal Zoster vaccine ( ). Due on due Goal CT-Colonography. Due on due Goal Depression scree sharee. Due on due Goal Advance Care Denise nning. Due on due Goal Unhealthy drug u se screening. Due on due Goal FIT-DNA. Due on due Goal Fall Risk. Due on due Goal Hepatitis C scre ening. Due on due Goal Depression scree sharee. Due on due Goal FIT. Due on due Goal Pneumococcal vac cine. Due on due Goal Annual Wellness Visit. Due on due Goal Zoster vaccine ( ). Due on due Goal DEXA scan. Due on due Goal Reviewed BMI. Due on 2021 due Goal Zoster vaccine. Due on due Goal FOBT. Due on due Goal Td vaccine. Due on due Goal Advance Care Denise nning. Due on due Goal Sigmoidoscopy. Due on due Goal Tdap. Due on due Goal Lipid panel. Due on due Goal CT-Colonography. Due on due Goal Influenza vaccine. Due on due Goal Colonoscopy. Due on due Goal Mammogram. Due on due Goal Unhealthy drug u se screening. Due on due Goal Zoster vaccine ( 1st). Due on due Goal Td vaccine. Due on due Goal Zoster vaccine. Due on due Goal Depression scree sharee. Due on due Goal CT-Colonography. Due on due Goal Reviewed BMI. Due on 2021 due Goal Lipid panel. Due on due Goal Hepatitis C scre ening. Due on due Goal Mammogram. Due on due Goal Influenza vaccine. Due on due Goal Advance Care Denise nning. Due on due Goal Annual Wellness Visit. Due on due Goal Colonoscopy. Due on due Goal Tdap. Due on due Goal Sigmoidoscopy. Due on due Goal Fall Risk. Due on due Goal Unhealthy drug u se screening. Due on due Goal FIT. Due on due Goal FOBT. Due on due Goal Pneumococcal vac cine. Due on due Goal DEXA scan. Due on due Goal FIT-DNA. Due on due Goal Reviewed BMI. Due on 2020 due Goal DEXA scan. Due on due Goal Zoster vaccine ( 1st). Due on due Goal Pneumococcal vac cine. Due on due Goal FOBT. Due on due Goal Sigmoidoscopy. Due on due Goal Tdap. Due on due Goal Colonoscopy. Due on due Goal Fall Risk. Due on due Goal Zoster vaccine. Due on due Goal Td vaccine. Due on due Goal Lipid panel. Due on due Goal Unhealthy drug u se screening. Due on due Goal Annual Wellness Visit. Due on due Goal Advance Care Denise nning. Due on due Goal Depression scree sharee. Due on due Goal Influenza vaccine. Due on due Goal Mammogram. Due on due Goal FIT. Due on due Goal CT-Colonography. Due on due Goal FIT-DNA. Due on due Goal Hepatitis C scre ening. Due on due Goal Annual Wellness Visit. Due on due Goal Influenza vaccine. Due on due Goal Td vaccine. Due on due Goal Advance Care Denise nning. Due on due Goal Zoster vaccine ( ). Due on due Goal Zoster vaccine. Due on due Goal Depression scree sharee. Due on due Goal Tdap. Due on due Goal DEXA scan. Due on 0 due Goal Reviewed BMI. Due on 2019 due Goal Mammogram. Due on 0 due Goal FOBT. Due on due Goal Fall Risk. Due on 0 due Goal FIT. Due on due Goal Lipid panel. Due on due Goal Diabetes screening. Due on A due Goal Pneumococcal vac cine. Due on due Goal Colonoscopy. Due on due Goal Sigmoidoscopy. Due on due Goal Td vaccine. Due on 19 due Goal Sigmoidoscopy. Due on due Goal Colonoscopy. Due on 019 due Goal Pneumococcal vac cine. Due on due Goal Diabetes screening. Due on due Goal Mammogram. Due on 9 due Goal DEXA scan. Due on 9 due Goal Reviewed BMI. Due on 2018 due Goal Tdap. Due on due Goal Depression scree sharee. Due on due Goal Zoster vaccine. Due on due Goal Zoster vaccine ( 1st). Due on due Goal Advance Care Denise nning. Due on due Goal Lipid panel. Due on due Goal FIT. Due on due Goal Fall Risk. Due on 9 due Goal FOBT. Due on due Goal Influenza vaccine. Due on due Goal Annual Wellness Visit. Due on due Goal Colonoscopy. Due on due Goal Sigmoidoscopy. Due on due Goal Pneumococcal vac cine. Due on due Goal Diabetes screening. Due on due Goal Influenza vaccine. Due on due Goal Reviewed BMI. Due on 2018 due Goal Tdap. Due on due Goal Mammogram. Due on 9 due Goal Fall Risk. Due on due Goal Lipid panel. Due on due Goal Annual Wellness Visit. Due on due Goal FOBT. Due on due Goal Td vaccine. Due on 19 due Goal Depression scree sharee. Due on due Goal Zoster vaccine ( 1st). Due on due Goal Zoster vaccine. Due on due Goal DEXA scan. Due on 9 due Goal Advance Care Denise nning. Due on due Goal FIT. Due on due Goal Diabetes screening. Due on A due Goal Sigmoidoscopy. Due on due Goal Pneumococcal vac cine. Due on due Goal Zoster vaccine ( ). Due on due Goal Fall Risk. Due on 9 due Goal Colonoscopy. Due on due Goal DEXA scan. Due on 9 due Goal Advance Care Denise nning. Due on due Goal FOBT. Due on due Goal Mammogram. Due on 9 due Goal Influenza vaccine. Due on due Goal FIT. Due on due Goal Zoster vaccine. Due on due Goal Annual Wellness Visit. Due on due Goal Lipid panel. Due on due Goal Td vaccine. Due on 19 due Goal Reviewed BMI. Due on 2018 due Goal Tdap. Due on due Goal Depression scree sharee. Due on due Goal Lipid panel. Due on due Goal FIT. Due on due Goal Mammogram. Due on 5 due Goal DEXA scan. Due on due Goal Sigmoidoscopy. Due on due Goal Zoster vaccine. Due on due Goal Colonoscopy. Due on due Goal Fall Risk. Due on 7 due Goal Td vaccine. Due on 17 due Goal FOBT. Due on due Goal Influenza vaccine. Due on Oc due Goal Depression scree sharee. Due on due Goal Tdap. Due on due Goal Pneumococcal vac cine. Due on due Goal Sigmoidoscopy. Due on due Goal Mammogram. Due on 5 due Goal Fall Risk. Due on due Goal FIT. Due on due Goal DEXA scan. Due on due Goal Zoster vaccine. Due on due Goal Colonoscopy. Due on 017 due Goal Tdap. Due on due Goal Influenza vaccine. Due on Oc due Goal FOBT. Due on due Goal Depression scree sharee. Due on due Goal Td vaccine. Due on 17 due Goal Pneumococcal vac cine. Due on due Goal Lipid panel. Due on 017 due Goal FIT. Due on due Goal Zoster vaccine. Due on due Goal Sigmoidoscopy. Due on due Goal Depression scree sharee. Due on due Goal Td vaccine. Due on 17 due Goal FOBT. Due on due Goal Influenza vaccine. Due on due Goal Tdap. Due on due Goal Pneumococcal vac cine. Due on due Goal Colonoscopy. Due on due Goal DEXA scan. Due on due Goal Mammogram. Due on due Goal Fall Risk. Due on due Goal FIT. Due on due Goal Fall Risk. Due on due Goal Tdap. Due on due Goal Mammogram. Due on due Goal Lipid panel. Due on due Goal Depression scree sharee. Due on due Goal Td vaccine. Due on due Goal Sigmoidoscopy. Due on due Goal Pneumococcal vac cine. Due on due Goal Zoster vaccine. Due on due Goal Influenza vaccine. Due on due Goal FOBT. Due on due Goal Colonoscopy. Due on due Goal DEXA scan. Due on due Goal FIT. Due on due Goal DEXA scan. Due on due Goal Td vaccine. Due on due Goal Lipid panel. Due on due Goal Colonoscopy. Due on due Goal FOBT. Due on due Goal Pneumococcal vac cine. Due on due Goal Depression scree sharee. Due on due Goal Tdap. Due on due Goal Zoster vaccine. Due on due Goal Sigmoidoscopy. Due on due Goal Influenza vaccine. Due on due Goal Fall Risk. Due on due Goal Mammogram. Due on due Goal Mammogram. Due on due Goal FIT. Due on due Goal Influenza vaccine. Due on due Goal Sigmoidoscopy. Due on due Goal Td vaccine. Due on due Goal DEXA scan. Due on due Goal Tdap. Due on due Goal Depression scree sharee. Due on due Goal Colonoscopy. Due on due Goal FOBT. Due on due Goal Lipid panel. Due on due Goal Fall Risk. Due on due Goal Pneumococcal vac cine. Due on due Goal Zoster vaccine. Due on due Goal DEXA scan. Due on due Goal Mammogram. Due on [...] Goal Fall Risk. Due on due Goal Lipid panel. Due on due Goal Td vaccine. Due on due Goal Zoster vaccine. Due on due Goal Tdap. Due on due Goal Influenza vaccine. Due on due Goal Pneumococcal vac cine. Due on due Goal Lipid panel. Due on due Goal Depression scree sharee. Due on due Goal Fall Risk. Due on due Goal FIT. Due on due Goal Colonoscopy. Due on due Goal DEXA scan. Due on due Goal Mammogram. Due on due Goal Sigmoidoscopy. Due on due Goal FOBT. Due on due Goal Colonoscopy. Due on due Goal DEXA scan. Due on 7 due Goal Mammogram. Due on 5 due Goal Sigmoidoscopy. Due on due Goal Tdap. Due on due Goal Zoster vaccine. Due on due Goal FOBT. Due on due Goal Influenza vaccine. Due on due Goal Pneumococcal vac cine. Due on due Goal FIT. Due on due Goal Lipid panel. Due on due Goal Td vaccine. Due on 17 due Goal Depression scree sharee. Due on due Goal Fall Risk. Due on due Goal Influenza vaccine. Due on due Goal Tdap. Due on due Goal Fall Risk. Due on due Goal Depression scree sharee. Due on due Goal Colonoscopy. Due on due Goal DEXA scan. Due on due Goal Mammogram. Due on due Goal Sigmoidoscopy. Due on due Goal FOBT. Due on due Goal Td vaccine. Due on 17 due Goal Zoster vaccine. Due on due Goal FIT. Due on due Goal Lipid panel. Due on due Goal Pneumococcal vac cine. Due on due Goal DEXA scan. Due on due Goal Pneumococcal vac cine. Due on due Goal Tdap. Due on due Goal Colonoscopy. Due on due Goal Mammogram. Due on due Goal Lipid panel. Due on due Goal FOBT. Due on due Goal Sigmoidoscopy. Due on due Goal Fall Risk. Due on due Goal Influenza vaccine. Due on due Goal Pap/HPV testing. Due on due Goal Depression scree sharee. Due on due Goal Td vaccine. Due on 17 due Goal Zoster vaccine. Due on due Goal FIT. Due on due Goal Tobacco cessation counseling completed Referral Ordered: Harman Yen MD -Allopathic & Osteopathic Physicians : Anesthesiology (related to Lumbar spinal stenosis) ordered Referral Referred To: Harman Yen MD [address] [place], [address] [phone] Ordered: Referrals: Allopathic & Osteopathic Physicians : Anesthesiology. Harman Yen MD ordered Referral Ordered: Len Mejia -Physician Assistants & Advanced Practice Nursing Providers : Physician [employer] (related to Arthritis of left shoulder region) ordered Future Order: Lab Order Birney Wi th Bronch ([id number]), Sent on: Sent Future Order: Lab Order Pap Thin Prep (PL) ([id number]), Sent on: Sent Future Order: Lab Order CBC W/Au to Differential ([id number]), Sent on: Sent Future Order: Lab Order Comprehe nsive Metabolic Panel -[facility] ([id number]), Sent on: Sent Future Order: Lab [...] to / in May, but heading to [place] for the winter. Has continued PT 3x/wk. [...] Prineo intact. Fell out of bed in [facility] last night- denies any new injury. Right [...] her lumbar spine. SP Left CATHIE DAA 04-21 (comments) 15 [...] ambulate at times without any assistive device. SP Left CATHIE DAA 04-21-19 Patient returns in a along with her for post op follow up. Patient having issues with her DANETTE hose, attempting to wear a thigh high pair that 'roll down'. Patient doing outpatient therapy in [place] Patient using 1-2 tramadol per day to manage pain, along with tylenol prn. Right arm pain Onset: gradual. Severity level [...] Up of injection bilateral L2-3 TESI 05/01/17 sleep apnea (follow up) The mavis ent presents for follow up of hypersomnia. The patient is also experiencing difficulty initiating sleep, difficulty maintaining sleep and wheezing. Additional information: Patient has not been using her cpap. asthma Onset: since las t visit. The [...] of 82 last week at her colonoscopy. low back pain Onset: 2 months ago. [...] for bilateral L2-3 TESI on 05-01-17 @ [facility] with Dr. Yen. YOBANY Left TSA [...] prn for pain. SP Left TSA 7-- Patient here along with her for post op follow up. Patient wearing her A/S immoblizer at all times with the exception of showering, and home exercises. Tape mostly intact to her left shoulder. fyi-patient using her abductor pillow as an arm rest rather than to abduct the left arm. Patient currently on an ATB to treat a UTI. SP Left TSA 7-10-26 (comments) 3 weeks s/p L TSA. Yeny is doing well, having little or no discomfort with her shoulder. She continues in the A/S immobilizer and with her HEP. Left shoulder pain Onset: 2 year s [...] ago with no relief. Pain with ROM. sleep apnea (follow up) The mavis ent presents for follow up of hypersomnia. The patient denies wheezing. Additional information: Patient is not using her cpap. asthma Onset: since las t visit. The [...] at rest, hemoptysis, productive cough and wheezing. asthma The initial visi t date was [...] excessive sputum, hemoptysis, pleuritic pain and reflux. sleep apnea (consult) The patien t's symptoms [...] Patient had her sleep study done in [place]. cough The patient desc ribes the cough as productive yellow. Associated symptoms include hoarseness. Pertinent negatives include dyspnea at rest, dyspnea on exertion and heartburn. Additional information: Patient finished a zEQ worksck yesterday. annual exam : 4. Cherelle ty: Term: [...] alcohol. Additional information: Recently moved here from [place]. Last pap roughly three years ago. Mammogram [...] can continue her physical therapy down in [place]. This was given to her. She may [...] shoulder joint Yeny had a rough w chuloonawick and a half immediately following her surgery. [...] jody flood show progressive and very advanced yrzp-aj-xjeb glenohumeral joint degenerative arthritis. She comes in [...] with numbness and tingling. She also has djhv-ov-xxvf arthritis involving her right shoulder glenohumeral joint. [...] Obstructive sleep apnea stable. will start rehab. [facility] R elated to Severe persistent asthma, [...] lift at L4-5, this was done in [place], and then a posterior fusion up to [...] her left anne medel show very advanced kati-zn-upag glenohumeral joint arthritis. She has been having [...] to refer her to my partner Dr. Glze for this. Related to Arthritis of left [...]
--- OUTSIDE RECORDS SUMMARY | 2024-07-08 09:30 | XMS_ITS | Continuity of Care Document ---
Author Organization [employer] [place] Address [address] [facility] [address] [place] [address] Phone Care Team Providers Care Roll Trucker Name Role Phone Carlota Sparrow PT Unavailable [...] Therapeutic Exercise Therapeutic Activities Therapeutic Exercise Therapeutic Exercise Therapeutic Activities Therapeutic Activities Therapeutic Exercise Therapeutic Exercise Manual Therapy Therapeutic Activities Therapeutic Activities Manual Therapy Therapeutic Exercise Therapeutic Activities Therapeutic Exercise Manual Therapy Doc neg elder mal no plan Therapeutic Exercise PT Evaluation Moderate Complexity Therapeutic Activities PT Re-Evaluation Therapeutic Activities Neuromuscular Re-Ed Therapeutic Exercise Therapeutic Activities Neuromuscular Re-Ed Therapeutic Exercise Therapeutic Activities Neuromuscular Re-Ed Progress Note Therapeutic Activities Neuromuscular Re-Ed Therapeutic Activities Neuromuscular Re-Ed Therapeutic Activities Neuromuscular Re-Ed Therapeutic Activities Neuromuscular Re-Ed Therapeutic Activities Neuromuscular Re-Ed Therapeutic Activities Therapeutic Exercise Therapeutic Activities PT Evaluation High Complexity Therapeutic Activities Therapeutic Exercise Therapeutic Activities Therapeutic Exercise Electrical Stimulation Therapeutic Activities Electrical Stimulation Therapeutic Exercise Therapeutic Activities Electrical Stimulation Therapeutic Exercise Therapeutic Activities Therapeutic Exercise Electrical Stimulation Therapeutic Exercise Therapeutic Activities Electrical Stimulation Therapeutic Activities Therapeutic Exercise Electrical Stimulation Manual Therapy Therapeutic Exercise Therapeutic Activities Electrical Stimulation Therapeutic Activities Therapeutic Exercise Electrical Stimulation Therapeutic Activities Electrical Stimulation Therapeutic Exercise PT Evaluation High Complexity 0 Therapeutic Activities Therapeutic Exercise Electrical Stimulation PT Evaluation Low Complexity Therapeutic Activities Manual Therapy Therapeutic Activities Neuromuscular Re-Ed Therapeutic Exercise Therapeutic Activities Neuromuscular Re-Ed Therapeutic Exercise Therapeutic Activities Neuromuscular Re-Ed Therapeutic Exercise Therapeutic Activities Therapeutic Exercise Electrical Stimulation Therapeutic Activities Therapeutic Exercise Manual Therapy Electrical Stimulation Therapeutic Activities Therapeutic Exercise Electrical Stimulation Progress [...] Providers Copied on Encounter [employer] , [address] [facility] [address], [place], [place], [id number], [place] tel:[phone] [place] No Information Ladwig Carlota. . Referring Provider: Yasmani Gutierrez, [address] , [place], [address]. tel:[phone] [facility], [address] [facility] [facility], [place], [place], [address], tel:[phone] [place] No Information Ladwig Carlota. . Referring Provider: Yasmani Gutierrez, [address] , [place], [address]. tel:[phone] [facility], [address] [facility] [facility], [place], [place], [address], [place] tel:[phone] [place] No Information Ladwig Carlota. . Referring Provider: Yasmani Gutierrez, [address] , [place], [address]. tel:[phone] [facility], [address] [facility] [address], [place], [place], [address], [place] tel:[phone] [place] No Information Ladwig Carlota. . Referring Provider: Yasmani Gutierrez, [address] , [place], [address]. tel:[phone] [facility], [address] [facility], [place], [place], [address], tel:[phone] [place] No Information Ladwig Carlota. . Referring Provider: Yasmani Gutierrez, [address] , [place], [address]. tel:[phone] [facility], [address] [facility] [facility], [place], [place], [address], [place] tel:[phone] [place] No Information Ladwig Carlota. . Referring Provider: Yasmani Gutierrez, [address], [place], [address]. tel:[phone] [facility], [address] [facility] [facility], [place], [place], [address], tel:[phone] [place] No Information Ladwig Carlota. . Referring Provider: Yasmani Gutierrez, [address] , [place], [address]. tel:[phone] [facility], [address] [facility] [facility], [place], [place], [address], tel:[phone] [place] No Information Ladwig Carlota. . Referring Provider: Yasmani Gutierrez, [address] , [place], [address]. tel:[phone] [facility], [address] [facility], [place], [address], [place] tel:[phone] [place] No Information Ladwig Carlota. . Referring Provider: Yasmani Gutierrez, [address], [place], [address]. tel:[phone] [facility], [address] [facility], [place], [place], [address], [place] tel:[phone] [place] No Information Ladwig Carlota. . Referring Provider: Yasmani Gutierrez, [address] , [place], [address]. tel:[phone] [facility], [address] [facility], [place], [place], [address], [place] tel:[phone] [place] No Information Ladwig Carlota. . Referring Provider: Yasmani Gutierrez, [address] , [place], [address]. tel:[phone] [facility], [address] [facility], [place], [address], [place] tel:[phone] [place] No Information Ladwig Carlota. . Referring Provider: Yasmani Gutierrez, [address], [place], [address]. tel:[phone] [facility], [address] [facility], [place], [place], [address], tel:[phone] [place] No Information Ladwig Carlota. . Referring Provider: Yasmani Gutierrez, [address], [place], [address]. tel:[phone] [facility], [address] [facility], [place], [place], [address], tel:[phone] [place] No Information Ladwig Carlota. . Referring Provider: Yasmani Gutierrez, [address], [place], [address]. tel:[phone] [facility], [address] [facility], [place], [place], [address], tel:[phone] [place] No Information Ladwig Carlota. . [facility] [facility], [place], [address], tel:[phone] [place] No Information Ladwig Carlota. . [facility] [facility], [place], [address], [place] tel:[phone] [place] No Information Ladwig Carlota. . [facility] [facility], [place], [place], [address], tel:[phone] [place] No Information Ladwig Carlota. . [facility] [facility], [place], [address], [place] tel:[phone] [place] No Information Ladwig Carlota. . [facility] [facility] [address], [place], [address], [place] tel:[phone] [place] No Information Ladwig Carlota. . [facility] [facility], [place], [place], [address], tel:[phone] [place] No Information Ladwig Carlota. . [facility] [facility], [place], [address], [place] tel:[phone] [place] No Information Ladwig Carlota. . [facility], [address] [facility], [place], [place], [address], tel:[phone] [place] No Information Ladwig Carlota. . [facility], [address] [facility], [place], [place], [address], tel:[phone] [place] No Information Ladwig Carlota. . [facility], [address] [facility], [place], [place], [address], [place] tel:[phone] [place] No Information Ladwig Carlota. . [facility], [address] [facility], [place], [place], [address], tel:[phone] [place] No Information Ladwig Carlota. . [facility], [address] [facility], [place], [place], [address], [place] tel:[phone] [place] No Information Ladwig Carlota. . Referring Provider: Ron Feldman, [address], [place], [address]. tel:[phone] [facility] [address], [place], [place], [address], tel:[phone] [place] No Information Ladwig Carlota. . Referring Provider: Ron Feldman, [address], [place], [address]. tel:[phone] [facility] [address], [place], [address], [place] tel:[phone] [place] No Information Ladwig Carlota. . Referring Provider: Ron Feldman, [address], [place], [address]. tel:[phone] [facility] [facility] [address], [place], [address], [place] tel:[phone] [place] No Information Ladwig Carlota. . Referring Provider: Ron Feldman, [address], [place], [address]. tel:[phone] [facility], [address] [facility] [address], [place], [address], [place] tel:[phone] [place] No Information Ladwig Carlota. . Referring Provider: Ron Feldman, [address], [place], [address]. tel:[phone] [facility], [address] [facility] [address], [place], [place], [address], [place] tel:[phone] [place] No Information Ladwig Carlota. . Referring Provider: Ron Feldman, [address], [place], [address]. tel:[phone] [facility], [address] [facility] [address], [place], [place], [address], [place] tel:[phone] [place] No Information Ladwig Carlota. . Referring Provider: Ron Feldman, [address], [place], [address]. tel:[phone] [facility], [address] [address], [place], [address], [place] tel:[phone] [place] No Information Ladwig Carlota. . Referring Provider: Ron Feldman, [address], [place], [address]. tel:[phone] [facility], [address] [facility] [address], [place], [place], [address], [place] tel:[phone] [place] No Information Shantal Grayson. . Referring Provider: Ron Feldman, [address], [place], [address]. tel:[phone] [facility], [address] [address], [place], [place], [address], tel:[phone] [place] No Information Tubbesing Ric. . [facility] [address], [place], [place], [address], tel:[phone] [place] No Information Kyara Harrington. . [facility], [address] [address], [place], [address], [place] tel:[phone] [place] No Information Tubbesing Ric. . [facility] [address], [place], [place], [address], tel:[phone] [place] No Information Tubbesing Ric. . [facility], [address], tel:[phone] [place] No Information Tubbesing Ric. . [facility] [address], [place], [place], [address], tel:[phone] [place] No Information Tubbesing Ric. . [facility], [address], tel:[phone] [place] No Information Tubbesing Ric. . [facility] [address], [place], [place], [address], [place] tel:[phone] [place] No Information Tubbesing Ric. . [facility] [address], [place], [place], [address], tel:[phone] [place] No Information Kyara Van. . [facility] [facility] [address], [place], [address], [place] tel:[phone] [place] No Information Ladwig Carlota. . [facility], [address] [facility] [address], [place], [place], [address], tel:[phone] [place] No Information Ladwig Carlota. . [facility], [address] [facility] [address], [place], [place], [address], [place] tel:[phone] [place] No Information Ladwig Carlota. . Referring Provider: Ron Feldman, [address] , [place], [address]. tel:[phone] [facility], [address] [facility], [place], [place], [address], tel:[phone] [place] No Information Ladwig Carlota. . Referring Provider: Ron Feldman, [address], [place], [address]. tel:[phone] [facility], [address] [address], [place], [address], [place] tel:[phone] [place] No Information Ladwig Carlota. . Referring Provider: Ron Feldman, [address] , [place], [address]. tel:[phone] [facility], [address] [address], [place], [place], [address], [place] tel:[phone] [place] No Information Ladwig Carlota. . Referring Provider: Ron Feldman, [address], [place], [address]. tel:[phone] [facility], [address] [facility] [address], [place], [place], [address], tel:[phone] [place] No Information Ladwig Carlota. . Referring Provider: Ron Feldman, [address], [place], [address]. tel:[phone] [facility], [address], [place], [place], [address], [place] tel:[phone] [place] No Information Ladwig Carlota. . Referring Provider: Ron Feldman, [address], [place], [address]. tel:[phone] [facility], [address], [place], [place], [address], [place] tel:[phone] [place] No Information Ladwig Carlota. . Referring Provider: Ron Feldman, [address], [place], [address]. tel:[phone] [facility], [address], [place], [place], [address], [place] tel:[phone] [place] No Information Ladwig Carloat. . Referring Provider: Ron Feldman, [address] , [place], [address]. tel:[phone] [facility], [address], [place], [place], [address], [place] tel:[phone] [place] No Information Ladwig Carlota. . Referring Provider: Long Glez, [address], [place], [address]. tel:[phone] [facility], [address], [place], [place], [address], [place] tel:[phone] [place] No Information Ladwig Carlota. . Referring Provider: Long Glez, [address], [place], [address]. tel:[phone] [facility], [address], [place], [place], [address], [place] tel:[phone] [place] No Information Ladwig Carlota. . Referring Provider: Yasmani Gutierrez, [address], [place], [address]. tel:[phone] [facility], [address], [place], [place], [address], [place] tel:[phone] [place] No Information Ladwig Carlota. . Referring Provider: Long Glez, [address], [place], [address]. tel:[phone] [facility], [address], [place], [address], [place] tel:[phone] [place] No Information Ladwig Carlota. . Referring Provider: Long Glez, [address], [place], [address]. tel:[phone] [facility], [address], [place], [place], [address], [place] tel:[phone] [place] No Information Ladwig Carlota. . Referring Provider: Long Glez, [address], [place], [address]. tel:[phone] [address], [place], [place], [address], [place] tel:[phone] [place] No Information Ladwig Carlota. . Referring Provider: Long Glez, [address], [place], [address]. tel:[phone] [facility], [address], [place], [place], [address], [place] tel:[phone] [place] No Information Ladwig Carlota. . Referring Provider: Long Glez, [address], [place], [address]. tel:[phone] [facility], [address] [address], [place], [place], [address], [place] tel:[phone] [place] No Information Ladwig Carlota. . Referring Provider: Long Glez, [address], [place], [address]. tel:[phone] [facility], [address] [facility], [place], [place], [address], [place] tel:[phone] [place] No Information Ladwig Carlota. . Referring Provider: Long Glez, [address], [place], [address]. tel:[phone] [facility], [address] [place], [place] [address], [place], [address], [place] tel:[phone] [place] No Information Ladwig Carlota. . Referring Provider: Long Glez, [address], [place], [address]. tel:[phone] [facility], [address] [facility] [address], [place], [place], [address], [place] tel:[phone] [place] No Information Ladwig Carlota. . Referring Provider: Long Glez, [address], [place], [address]. tel:[phone] [facility], [address], [place], [address], [place] tel:[phone] [place] No Information Ladwig Carlota. . Referring Provider: Long Gelz, [address], [place], [address]. tel:[phone] [facility], [address], [place], [place], [address], tel:[phone] [place] No Information Ladwig Carlota. . Referring Provider: Long Glez, [address], [place], [address]. tel:[phone] [facility], [address] [place], [place] [address], [place], [place], [address], tel:[phone] [place] No Information Kyara Van. . Referring Provider: Long Glez, [address], [place], [address]. tel:[phone] [facility], [place], [place], [address], tel:[phone] [place] No Information Kyara Van. . Referring Provider: Long Glez, [address], [place], [address]. tel:[phone] Family History Family Member Type Diagnosis Age At Onset No Information Payers Payer name Insurance type Covered green party ID Nirav arteaga(s) Medicare [place] [id number] [facility] [id number] CI [id number] Social History Type Description Quantity Date Captured Comments Sex Female Smoking Status No Information Chief Complaint And Reason For Visit No Information Reason For Referral Reason For Referral No Information History Of Present Illness Encounter Date Complaint History Of Prese nt Illness No Information Functional Status Date Functional Assessmen t No Information Instructions Date Instruction Additional Infor fahad Giving encouragement to exercise Related to Overweight [...]
[2025-05-26 17:15] LABS: Add Urine Microscopic? NO; Appearance Urine Clear (Clear); Glucose Urine UA Negative (Negative); Leukocyte Esterase Ur Negative (Negative); Nitrate Urine Negative (Negative); Specific Grav Ur 1.010 (1.010-1.020)
--- OUTSIDE RECORDS SUMMARY | 2025-05-26 17:43 | XMS_ITS | Clinical Summary ---
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 Gender Identity Not on file Sexual Orientation [...] Creatinine 05/27/2020 05/27/2019 Diabetes Screening 05/27/2022 05/27/2019 Covid-19 Vaccine ( - 2024-2 6 season) 2025 Influenza Vaccine (#1) 2025 RSV Vaccine, Adult [...] (ABNORMAL) COMPREHENSIVE METABOLIC PANEL (05/27/2019 7:15 PM [facility]) Glucose 115(H) 70 - 100 mg/dL 05/27/2019 7:40 PM [facility] BUN 8(L) 10 - 20 mg/dL 05/27/2019 7:40 PM [facility] Creatinine 0.70 0.57 - 1.11 mg/dL 05/27/2019 7:40 PM [facility] BUN/Creatinine Ratio 11.4 8.0 - 36.0 05/27/2019 7:40 PM [facility] Sodium 140 136 - 145 meq/L 05/27/2019 7:40 PM [facility] Potassium 3.9 3.5 - 5.1 meq/L 05/27/2019 7:40 PM [facility] Chloride 99 98 - 107 meq/L 05/27/2019 7:40 PM [facility] CO2 29 22 - 29 meq/L 05/27/2019 7:40 PM [facility] Anion Gap with K 16 6 - 18 meq/L 05/27/2019 7:40 PM [facility] Calcium 9.9 8.4 - 10.2 mg/dL 05/27/2019 7:40 PM [facility] Protein Total 7.5 6.4 - 8.3 g/dL 05/27/2019 7:40 PM [facility] Albumin 4.1 3.5 - 5.0 g/dL 05/27/2019 7:40 PM [facility] Alkaline Phosphatase 166(H) 40 - 150 U/L 05/27/2019 7:40 PM [facility] AST - SGOT 21 8 - 34 U/L 05/27/2019 7:40 PM [facility] ALT - SGPT 17 10 - 41 U/L 05/27/2019 7:40 PM [facility] Bilirubin Total 0.3 0.2 - 1.2 mg/dL 05/27/2019 7:40 PM [facility] Age 68 Years 05/27/2019 7:40 PM CDT [facility] eGFR Non- 83 mL/min/1. 73m2 05/27/2019 7:40 PM CDT [facility] eGFR >90 mL/min/1. 73m2 05/27/2019 7:40 PM CDT [facility] Comment: The estimated Glomerular Filtration Rate [...] us Ashley PASCUAL LAB BLOOD Final Result [facility] [address], [place] [address] from Last 3 Months or Most Recently Relevant to Health Maintenance Advance Directives For more information, please contact: [phone] * Full Code (Latest Code Status on File) Date Activated Date Inactivated Comments 04/24/2017 10:37 AM 04/25/2017 6:17 AM Care Teams Director Of Community Life Relationship Specialty Start Date End Date Provider, No Attributed, RESOURCE [address] PCP - Attributed Provider 06/10/17 Recob, Yasmani Basilio MD [address] [place] [address] [place] [address] PCP - General 07/06/19
--- OUTSIDE RECORDS SUMMARY | 2025-05-26 17:44 | XMS_ITS | Clinical Summary ---
Author Organization [facility] Address [address] [place] [address] Care Team Providers Care Thermodynamic Physicist Name Role Phone Yasmani Gutierrez MD Primary Care Provider [phone] Allergies Active Allergy Reactions Criticality Noted Date Comments Acetaminophen History Unknown 04/14/2019 Codeine Rash High 03/04/2015 Gabapentin Anaphylaxis High 03/04/2015 Hydrocodone Bitartrate Rash High 04/14/2019 Levofloxacin History Unknown 06/03/2015 Molindone History Unknown 04/14/2024 from [facility] pharmacy list Penicillin Rash High 03/04/2015 Polymyxin B History Unknown 04/14/2024 from [facility] list Sulfa (Sulfonamide Antibiotics) Vomiting 03/04/2015 Thyrotropin History Unknown 04/14/2024 from [facility] pharmacy allergy list Medications acetaminophen (TYLENOL) 500 [...] 1 (one) time a day as needed (anaphylaxis). 2 each 5 4 Active clindamycin (CLEOCIN) [...] once a week. 12 tablet 5 Active Active Problems Problem Noted Date Diagnosed [...] Department Care Team Description 04/26/[address] [facility] [address] [place] [address] Natali Subramanian RN from Last [...] Tobacco: Never Tobacco Cessation:Counseling Given: Not Answered [facility] Utilities Answer Date Recorded In the past 12 months has e electric, gas, oil, or water company [...] No 02/01/2023 Social Connection and Isolation Panel Answer Date Recorded In a typical week, how many times do you talk on the phone with family, friends, or neighbors? Twice a week 03/05/2024 How often do you get together with friends or re latives? Once a week 03/05/2024 How often do you attend mormon or evangelical serv ices? Never 03/05/2024 Do you belong to any clubs o r organizations such as mormon groups, unions, fraternal or athletic groups, or [...] and heating? Not hard at all 03/05/2024 [place] [facility] - Occupational Stress [...] place to sleep or slept in a [place] (including now)? No 02/01/2023 Housing Stability Vital Sign Answer Simon e Recorded In the last 12 months, was t here a time when you were not able to pay the mortgage or rent on time? No 03/05/2024 In the past 12 months, how m any times have you moved where you were living? 1 03/05/2024 At any time in the past 12 m onths, were you homeless or living in a [place] (including now)? No 03/05/2024 Depression Answer Date [...] 37.1 C (98.7 F) 07/03/2024 10:16 AM [facility] [employer] Respiratory Rate 18 2024 9:41 AM CDT Oxygen Saturation 94% 05/04/2022 11: 14 AM CDT Inhaled Oxygen Concentration - - Weight 90.6 kg (199 lb 11.2 oz) 025 9:41 AM CDT Height 157.5 cm (5' [...] (Subsequent) 03/05/2025 03/05/2024, 02/01/2023, 06/30/2021 COVID-19 Vaccines (1 - season) 2025 Influenza vaccines (#1) 2025 [...] Results * MAMMOGRAPHY (03/01/2023) Mammogram Negative [facility] Anatomical Region Laterality Modality Other Narrative Resulting Agency Comment Historical Provider HEALTH MAINTENANCE Final Result * COLONOSCOPY (04/24/2017) Colonoscopy diverticulo sis, follow up in 5 years [facility] Abdoulaye Hanna DO HEALTH MAINTENANCE Final Resu lt [facility] [address] [place] [address], [facility] [phone] from Last 3 Months or Most Recently Relevant to Health Maintenance Care Teams Thermodynamic Physicist Relationship Specialty Start Date End Date Yasmani Gutierrez MD [address] [place] [phone] [email or web address] PCP - General Family Medicine 05/27/19
--- OUTSIDE RECORDS SUMMARY | 2025-05-26 17:44 | XMS_ITS | Clinical Summary ---
Author Organization [facility] Address [address] [place] [address] Care Team Providers Care Building Specialist Name Role Phone Ambar Doss Primary Care Provider [phone] Allergies Active Allergy Reactions Criticality Noted Date Comments Codeine Nausea and Vomiting,Rash High 03/04/2015 Gabapentin Anaphylaxis High 03/04/2015 Penicillins Rash High 03/04/2015 Sulfa Antibiotics Nausea and Vomiting 6 Medications rOPINIRole (REQUIP) 2 MG tablet Take 1 tablet (2 mg total) by mouth 3 (three) times daily. 5 Active albuterol sulfate HFA 108 (90 Base) MCG/ACT inhaler Inhale 1-2 puffs into the lungs every 4 (four) hours as needed for Wheezing or Shortness of breath. Active alendronate (FOSAMAX) 70 MG tablet Take 1 tablet (70 mg total) by mouth every 7 days. 5 Active buPROPion XL (WELLBUTRIN XL) 300 MG 24 hr tablet Take 1 tablet (300 mg total) by mouth daily. 1 Active allopurinol (ZYLOPRIM) 300 MG tablet Take 1 tablet (300 mg total) by mouth daily. Active amLODIPine (NORVASC) 5 MG tablet Take 1 tablet (5 mg total) by mouth daily. Active aspirin EC 81 MG tablet Take 1 tablet (81 mg total) by mouth daily. On hold for 7 days Active DULoxetine (CYMBALTA) 60 MG capsule Take 1 capsule (60 mg total) by mouth daily. Active furosemide (LASIX) 40 MG tablet Take 1 tablet (40 mg total) by mouth daily. Active levothyroxine (SYNTHROID) 100 MCG tablet Take 1 tablet (100 mcg total) by mouth every morning. Active LORazepam (ATIVAN) 1 MG tablet Take 1 tablet (1 mg total) by mouth every 6 (six) hours as needed for Anxiety. Active omeprazole (PRILOSEC) 40 MG capsule Take 1 capsule (40 mg total) by mouth daily. Active Encounters Date Type Department Care Team Description 05/19/2025 Travel 04/29/2025 Scan [facility] [address] [place] [address] Scanned, Doc Hospital Image (SCAN); Lab (SCAN) (/) 04/05/[address] [address] Scanned, Doc Hospital ECG (SCAN) from Last 3 Months Family History Medical History Relation Comments No Known Problems Father Diabetes Mother Heart Disease Mother Relation Status Comments Father Mother Social History Tobacco Use Types Packs/Day Years Used Date Smoking Tobacco: Former Cigarettes Smokeless Tobacco: Never Tobacco Cessation:Counseling Given: Not Answered Comments:Quit smoking 30 years ago Alcohol Use Standard Drinks/Week Comments Not Currently 0 (1 standard drink = 0.6 oz pur e alcohol) Comments Unknown Sex and Gender Information Value [...] - Inhaled Oxygen Concentration - - Weight 88 kg (194 lb) 05/19/2025 12:42 PM CDT Height 162.6 cm (5' 4) 05/19/2025 12:42 PM CDT Body Mass Index 33.3 05/19/2025 12:42 PM CDT Plan of Treatment Upcoming Encounters Date Type Department Care Team (Latest Contact Info) Description 05/27/2025 8:30 AM CDT Hospital Encounter [facility] [address] [place] [address] Elbert Hansen MD [address] [place] [id number] 05/27/2025 8:30 AM CDT Anesthesia Event [facility] [address] [place] [address] Terrie Dsouza RN 05/27/2025 8:30 AM CDT - 05/27/2025 10:34 AM CDT [facility] [address] [place] [address] Elbert Hansen MD [address] [place] [address] DISCECTOMY AND FUSION SPINAL ANTERIOR CERVICAL C4-5.C5-6.C6-7 Scheduled Procedures Name Priority Associated Diagnoses Date/Ti me FUSION SPINAL ANTERIOR CERVICAL SEVERE CERVICAL SPINAL STENOSIS 05/27/2025 8:30 AM CDT Health Maintenance Due Date Last Done Comments Colorectal Cancer Screening Colonoscopy (10 Years) 1950 Hepatitis C 1968 Zoster Vaccines (1 of 2) 2000 Annual Medicare Wellness Visit 12/25/2015 Dexa Scan (General) 12/25/2015 Mammogram Screening 03/01/2025 03/01/2023 COVID-19 Vaccine (4 - 2024-2 6 season) 2025 04/26/2021, 11/23/2020, 11/02/2020 Influenza Adult (#1) 2025 05/16/2020, 05/26/2018, 05/21/2016 RSV Immunization or 60+ Years (1 - 1-dose 75+ series) 2025 DTaP, Tdap and Td Vaccines ( 2 - Td or Tdap) 02/01/2033 02/01/2023 Pneumococcal Vaccine: 50+ Years Completed 02/01/2023, 06/30/2021, 06/04/2017 Hepatitis A Vaccines Aged Out No long er eligible based on patient's age to complete this topic Meningococcal B Vaccine Aged Out No l [...] Care Plan Autogenerated Problem No Angie Frazier software project lead Procedure Name Priority Date/Time Associated Diagnosis Comments OUTSIDE LAB (SCAN ORDER) Routine 04/29/2025 12:00 AM CDT OUTSIDE LAB (SCAN ORDER) Routine 04/29/2025 12:00 AM CDT OUTSIDE LAB (SCAN ORDER) Routine 04/29/2025 12:00 AM CDT IMAGE GENERIC Routine 04/29/2025 12:00 AM CDT ECG GENERIC (SCAN ORDER) Routine 04/05/2025 12:00 AM CDT from Last 3 Months Results * OUTSIDE LAB (04/29/2025 12:00 AM CDT) Only the most recent of3 resultswithin the time period is included. 04/29/2025 [facility] Scanned SCANNING Final Resul t Performing Organization Address [facility] de Phone Number [facility] * IMAGE STUDY (04/29/2025 12:00 AM CDT) Anatomical Region Laterality Modality Other 04/29/2025 [facility] Scanned SCANNING Final Resul t * ECG (04/05/2025 12:00 AM CDT) 04/05/2025 [facility] Scanned SCANNING Final Resul t Performing Organization Address [facility] de Phone Number [facility] from Last 3 Months Additional Health Concerns Active Problems Noted Date Diagnosed Date Autogenerated Problem 05/14/2025 Insurance MEDICARE Care Teams Building Specialist Relationship Specialty Start Date End Date Ambar Doss FNP [address] [place] [address] PCP - General NURSE PRACTITIONER 07/12/23
== END 2025-05-26 16:11 | disposition home or self-care (01) ==
LOC: CHSLAB 16:15
PROVIDERS: PCP Internal Medicine; Visit Provider Internal Medicine
DX: N39.0 Urinary tract infection, site not specified (principal)
CPT/HCPCS: 81003

== ENCOUNTER 2025-06-23 20:45 | Emergency (ER) | payer MEDICARE, OTHER, SELFPAY ==
--- OUTSIDE RECORDS SUMMARY | 2024-04-20 18:00 | XMS_ITS | Continuity of Care Document ---
Author Organization [facility] Address [address] [facility] [place] [address] Phone Care Team Providers Care Clinic Physician Director Name Role Phone Doroteo Barraza MD Unavailable Unavailable Allergies, Adverse Reactions, Alerts Substance Reaction Status Criticality codeine Active No Information Penicillins Active No Information Sulfa (Sulfonamide Antibiotics) Active No Information gabapentin Active No Information Medications Medication Instructions Dosage Effective Dates (start - stop) Status Comments traMADol HCl 50 MG Oral Tablet TAKE 1 TABLET BY MOUTH EVERY 6 HOURS NEEDED - Active lorazepam 1 mg tablet take 1 tablet by oral route 3 times every day as needed 1 MG - Active acetaminophen 500 mg tablet take 2 tablet by oral route every 4 - 6 hours as needed not to exceed 8 tablets per 24hrs 1000 MG - Active clindamycin HCl 300 mg capsule take 1 capsule by oral route twice daily - Active Vitamin D2 1,250 mcg (50,000 unit) capsule take 1 capsule by oral route 2 times every week 60416 UNITS - Active Cymbalta 30 mg capsule,delayed release take 1 capsule by oral route every day 30 MG - Active lisinopril 10 mg-hydrochlorothiazid e 12.5 mg tablet take 1 tablet by oral route every day 1.00 tablet - Active atorvastatin 40 mg tablet take 1 tablet by oral route every day 40 MG - Active Fosamax 70 mg tablet take 1 tablet by oral route every week in the morning, at least 30 min before first food, beverage, or medication of day 70 MG - Active Cymbalta 60 mg capsule,delayed release take 1 capsule by oral route every day - Active Tylenol Extra Strength 500 mg tablet take 2 tablet by oral route every 6 hours as needed 1000 MG - Active albuterol sulfate 2.5 mg/3 mL (0.083 %) solution for nebulization inhale 3 milliliter by nebulization route 4 times every day 2.5 MG - Active omeprazole 20 mg capsule,delayed release take 1 capsule by oral route every day - Active ropinirole 1 mg tablet take 2 tablet by oral route 3 times every day 2 MG - Active furosemide 40 mg tablet take 1 tablet by oral route every day 40 MG - Active allopurinol 100 mg tablet take 2 tablet by oral route every day 200 MG - Active levothyroxine 100 mcg tablet take 1 tablet by oral route every day 100 MCG - Active Procedures Procedure Date Electrocardiogram Report Electrocardiogram Report Electrocardiogram Report Xray Shoulder Right Post-Op Exam Post-Op Exam Post-Op Exam Arthroplasty, Total Shoulder Arthroplasty, Total Shoulder Xray Shoulder Right Xray C-Spine Limited 2 Or 3 View 2020 Office/Outpatient Vist Est 3 Xray Pelvis With 3 Views Left Hip Xray L-Spine 3 Views Office/Outpatient Vist Est 3 Sed Rate Automated CBC Complete Auto Diff C Reactive Protein Venipuncture Post-Op Exam Total Hip Arthroplasty Total Hip Arthroplasty Xray Shoulder Right Xray C-Spine AP Lat Flex And Ext 2018 Office/Outpatient Vist Est 3 Xray Pelvis With 3 Views Left Hip Office/Outpatient Vist Est 3 Xray Shoulder Left Office/Outpatient Vist Est 3 Office/Outpatient Visit Est 2 7 Office/Outpatient Visit Ext 4 7 Facility Fee Facility Fee [facility] All Four Adverse Events Did Not Occu r ASC Patient WO PreOp Order For Prophylac tic IV AB Xray L-Spine With Flex And Ext 17 Xray Pelvis 1 Or 2 Views Office/Outpatient Visit Ext 4 7 Post-Op Exam Post-Op Exam Arthroplasty, Total Shoulder Arthroplasty, Total Shoulder Office/Outpatient Vist Est 3 Xray Shoulder Left Office Visit New Level 3 Office/Outpatient Visit Ext 4 7 Bronchospasm Evaluation Bronchospasm Evaluation Xray Chest Upright And Lateral 17 Office Visit New Level 5 CAD Screening Mammo Screening Digital Mammo Cytopathology With Screening Prevent Exam 40-64 Years Advance Directives Directive Yes / No Effective Date File Name No Information Encounters Encounter Description Practice Location Reason(s) For Visit Diagnoses Date Provider Providers Copied on Encounter [facility] [address] [place] [address], [id number] , [place] tel:[phone] [facility] No Information 4 Madi Sadler. [address] [place], [place], [id number] , [place]. tel:[phone] Referring Provider: Nik Mcgrath, [address] [place] [address] [address], [place], [address]. tel:[phone] [facility] [address] [place], [place], [id number] , [place] tel:[phone] [facility] No Information 4 Roel Cisse. [address], [place], [id number] , [place]. tel: [phone] Referring Provider: Raf Lawrence, [address], [place], [address] . tel:[phone] [facility] [address], [place], [id number] , [place] tel: [phone] [facility] Follow Up of Post Op (chief complaint) Presence of right artificial shoulder joint Sep-2 2 Francia Velasquez. [address], [place], [id number] , [place]. tel: [phone] Referring Provider: Ron Hanson, [address] , [place], [address] . tel:[phone] [facility] [address] , [place], [id number] , [place] tel: [phone] [facility] No Information Sep-0 2 Francia Velasquez. [address], [place], [address] , [place]. tel: [phone] [facility] [address], [place], [address] , [place] tel: [phone] [facility] Presence of right artificial shoulder joint Sep-0 2 Francia Velasquez. [address], [place], [address] , [place]. tel: [phone] [facility] [address], [place], [id number] , [place] tel: [phone] [facility] Post Op (chief complaint) Presence of right artificial shoulder jointAftercare following right shoulder joint replacement surgery Mar-0 2 Francia Velasquez. [address], [place], [id number] , [place]. tel: [phone] Referring Provider: Ron Hanson, [address], [place], [address] . tel:[phone] [facility] [address], [place], [address] , [place] tel:[phone] [facility] Post Op (chief complaint) Aftercare following right shoulder joint replacement surgeryPresence of right artificial shoulder joint 2 Francia Velasquez. [address], [place], [address] , [place]. tel:[phone] Referring Provider: Ron Hanson, [address], [place], [address] . tel:[phone] [facility] [address], [place], [address] , [place] tel:[phone] [facility] No Information 2 Amaris Alves. [address], [place], [address] , [place]. tel:[phone] Referring Provider: Long Harrell, [address], [place], [address] . tel:[phone] Office/Outpa tient Vist Est 3 [facility] [address], [place], [address] , [place] tel:[phone] [facility] Right shoulder pain (chief complaint) Primary osteoarthritis, right shoulder 1 Amaris Alves. [address], [place], [address] , [place]. tel:[phone] Referring Provider: Long Harrell, [address], [place], [address] . tel:[phone] Office/Outpa tient Vist Est 3 [facility] [address], [place], [address] , [place] tel:[phone] [facility] Left hip pain (chief complaint) Pain in left hipUnsp complication of internal prosth dev/grft, init Mar- 0 Amaris Alves. [address], [place], [id number] , [place]. tel: [phone] Referring Provider: Long Harrell, [address], [place], [address] . tel:[phone] [facility] [address], [place], [address] , [place] tel: [phone] [facility] SP Left CATHIE DAA 04-21-19 (chief complaint) Primary osteoarthritis of left hipStatus post total hip replacement, left Sep-2 9 Laine Morales. [address], [place], [id number] , [place]. tel: [phone] Referring Provider: Andrew Hanson, [address], [place], [address] . tel:[phone] [facility] [address], [place], [address] , [place] tel: [phone] [facility] No Information Sep- 9 Amaris Alves. [address], [place], [address] , [place]. tel: [phone] Referring Provider: Long Harrell, [address], [place], [address] . tel:[phone] Office/Outpa tient Vist Est 3 [facility] [address], [place], [address] , [place] tel: [phone] [facility] Right arm pain (chief complaint) Pain in right shoulderCervicalgia Sep-0 9 Amaris Alves. [address], [place], [address] , [place]. tel: [phone] Referring Provider: Long Harrell, [address], [place], [address] . tel:[phone] Office/Outpa tient Vist Est 3 [facility] [address], [place], [address] , [place] tel:[phone] [facility] Left hip pain (chief complaint) Pain in left hip 9 Amaris Alves. [address], [place], [address] , [place]. tel:[phone] Referring Provider: Long Harrell, [address], [place], [address] . tel:[phone] Office/Outpa tient Vist Est 3 [facility] [address], [place], [address] , [place] [phone] [facility] 4 month recheck, Left TSA 02/11/17 (chief complaint) Presence of left artificial shoulder joint May- 7 Amaris Alves. [address], [place], [address] , [place]. tel:[phone] Referring Provider: Long Harrell, [address], [place], [address] . tel:[phone] Office/Outpa tient Visit Est 2 [facility] [address], [place], [address] , [place] tel: [phone] [facility] Follow Up of injection (chief complaint) Spinal stenosis of lumbar region, unspecified whether neurogenic claudication present 7 Sergei Kim. [address], [place], [address] , [place]. tel:[phone] Referring Provider: Julio Mai, [address], [place], [address] . tel:[phone] Office/Outpa tient Visit Ext 4 [facility] [address], [place], [address] , [place] tel:[phone] [facility] asthma (chief complaint) sleep apnea (follow up) (chief complaint) Allergic rhinitis, unspecifiedObstruct des sleep apneaSevere persistent asthma, uncomplicated Sep-2 7 José Miguel Nunn. [address], [place], [address] , [place]. tel:[phone] Referring Provider: Arline Hanson, [address] , [place], [address] . tel:[phone] [facility] [address], [place], [address] , [place] tel:[phone] [facility] No Information Sep-2 [facility] [place]. [address], [place], [address] , [place]. tel:[phone] Len Perez. Referring Provider: Harman Yen, [address] [facility], [place], [address] . tel:[phone] Office/Outpa tient Visit Ext 4 [facility] [address], [place], [address] , [place] [phone] [facility] low back pain (chief complaint) Low back painLumbar spinal stenosis Sep-1 7 Sergei Kim. [address], [place], [address] , [place]. tel:[phone] Referring Provider: Julio Mai, [address], [place], [address] . tel:[phone] [facility] [address], [place], [address] , [place] tel:[phone] [facility] SP Left TSA 02-11-17 (chief complaint) Status post total replacement of left shoulder 7 Laine Morales. [address], [place], [address] , [place]. tel:[phone] Referring Provider: Andrew Hanson, [address], [place], [address] . tel:[phone] [facility] [address], [place], [address] , [place] tel:[phone] [facility] SP Left TSA 02-11-17 (chief complaint) Primary osteoarthritis, left shoulderStatus post total replacement of left shoulder 7 Laine Morales. [address], [place], [address] , [place]. tel:[phone] Referring Provider: Andrew Hanson, [address], [place], [address] . tel:[phone] [facility] [address], [place], [address] , [place] tel:[phone] [facility] No Information 7 Amaris Alves. [address], [place], [address] , [place]. tel:[phone] Referring Provider: Long Harrell, [address], [place], [address] . tel:[phone] Office/Outpa tient Vist Est 3 [facility] [address], [place], [address] , [place] tel:[phone] [facility] Left shoulder pain (chief complaint) Arthritis of left shoulder region 7 Amaris Alves. [address], [place], [address] , [place]. tel:[phone] Referring Provider: Julio Mai, [address], [place], [address] . tel:[phone] Office Visit New Level 3 [facility] [address] [place] [address], [id number] , [place] tel: [phone] [facility] shoulder pain (chief complaint) Pain in left shoulderArthritis of left shoulder region 7 Sergei Kim. [address] [place] [address], [id number] , [place]. tel: [phone] Referring Provider: Len Basilio, [address] [place], [address] . tel:[phone] Office/Outpa tient Visit Ext 4 [facility] [address] , [place], [address] , [place] tel: [phone] [facility] asthma (chief complaint) sleep apnea (follow up) (chief complaint) Obstructive sleep apneaSevere persistent asthma with (acute) exacerbationDyspnea , unspecified 7 José Miguel Nunn. [address] [place] [address], [id number] , [place]. tel:[phone] Referring Provider: Arline Hanson, [address] [facility], [place], [address] . tel:[phone] Office Visit New Level 5 [facility] [address] [place] [address], [id number] , [place] tel: [phone] [facility] sleep apnea (consult) (chief complaint) cough (chief complaint) asthma (chief complaint) SnoringObstructive sleep apneaSevere persistent asthma with (acute) exacerbationAllergi c rhinitis, unspecified 7 José Miguel Nunn. [address] , [place], [address] , [place]. tel:[phone] Referring Provider: Arline Hanson, [address] [facility], [place], [address] . tel:[phone] Prevent Exam 40-64 Years [facility] [address] , [place], [place], [id number] , [place] tel: [phone] [facility] annual exam (chief complaint) ROUTINE MEDICAL EXAMUnspecified essential hypertensionUnspeci fied hypothyroidismGout, unspecifiedMyalgia and myositis, unspecifiedDepressi ve disorder, not elsewhere classifiedAnxiety state, unspecifiedMammogra m, ScreeningRoutine Table Runner Examination 4 Sergei Choudhury. [address] , [place], [place], [id number] , [place]. tel: [phone] Referring Provider: Kei Dubois, [address] , [place], [address] . tel:[phone] Family History Family Member Type Diagnosis Age At Onset Father Problem (finding) Cancer, skin Mother Problem (finding) congestive heart failur e Payers Payer name Insurance type Covered alliance party ID Nirav arteaga(s) [place] [id number] [facility] [id number] Social History Type Description Quantity Date Captured Comments Sex Female Smoking Status No Information Chief Complaint And Reason For Visit No Information Reason For Referral Reason For Referral No Information Plan Of Treatment Date Type Action Status Goal FOBT. Due on due Goal Fall Risk. Due on due Goal Colonoscopy. Due on 022 due Goal Zoster vaccine. Due on due Goal Lipid panel. Due on 022 due Goal FIT. Due on due Goal Unhealthy drug u se screening. Due on due Goal Influenza vaccine. Due on Se due Goal Tdap. Due on due Goal Hepatitis C scre ening. Due on due Goal Sigmoidoscopy. Due on due Goal Advance Care Denise nning. Due on due Goal FIT-DNA. Due on due Goal Zoster vaccine ( ). Due on due Goal Td vaccine. Due on due Goal Annual Wellness Visit. Due on due Goal Mammogram. Due on due Goal CT-Colonography. Due on due Goal Reviewed BMI. Due on 2021 due Goal Pneumococcal vac cine. Due on due Goal DEXA scan. Due on due Goal Depression scree sharee. Due on due Goal Influenza vaccine. Due on due Goal CT-Colonography. Due on due Goal Hepatitis C scre ening. Due on due Goal Lipid panel. Due on due Goal Reviewed BMI. Due on 2021 due Goal FOBT. Due on due Goal Colonoscopy. Due on due Goal Td vaccine. Due on due Goal DEXA scan. Due on due Goal Zoster vaccine. Due on due Goal FIT. Due on due Goal Mammogram. Due on due Goal Annual Wellness Visit. Due on due Goal Sigmoidoscopy. Due on due Goal Depression scree sharee. Due on due Goal Advance Care Denise nning. Due on due Goal FIT-DNA. Due on due Goal Tdap. Due on due Goal Pneumococcal vac cine. Due on due Goal Zoster vaccine ( ). Due on due Goal Fall Risk. Due on due Goal Unhealthy drug u se screening. Due on due Goal Reviewed BMI. Due on 2021 due Goal Colonoscopy. Due on due Goal Sigmoidoscopy. Due on due Goal Annual Wellness Visit. Due on due Goal FIT. Due on due Goal FOBT. Due on due Goal FIT-DNA. Due on due Goal DEXA scan. Due on due Goal Td vaccine. Due on due Goal Unhealthy drug u se screening. Due on due Goal Advance Care Denise nning. Due on due Goal Depression scree sharee. Due on due Goal CT-Colonography. Due on due Goal Mammogram. Due on due Goal Lipid panel. Due on due Goal Fall Risk. Due on due Goal Zoster vaccine. Due on due Goal Pneumococcal vac cine. Due on due Goal Hepatitis C scre ening. Due on due Goal Zoster vaccine ( ). Due on due Goal Tdap. Due on due Goal Influenza vaccine. Due on due Goal DEXA scan. Due on due Goal Colonoscopy. Due on due Goal Advance Care Denise nning. Due on due Goal Fall Risk. Due on due Goal FIT-DNA. Due on due Goal Zoster vaccine ( ). Due on due Goal CT-Colonography. Due on due Goal Hepatitis C scre ening. Due on due Goal Unhealthy drug u se screening. Due on due Goal Annual Wellness Visit. Due on due Goal Sigmoidoscopy. Due on due Goal Reviewed BMI. Due on 2021 due Goal Td vaccine. Due on due Goal Pneumococcal vac cine. Due on due Goal Zoster vaccine. Due on due Goal Mammogram. Due on due Goal Lipid panel. Due on due Goal Tdap. Due on due Goal FIT. Due on due Goal Influenza vaccine. Due on due Goal FOBT. Due on due Goal Depression scree sharee. Due on due Goal Tdap. Due on due Goal FIT-DNA. Due on due Goal Annual Wellness Visit. Due on due Goal Pneumococcal vac cine. Due on due Goal FOBT. Due on due Goal Depression scree sharee. Due on due Goal Unhealthy drug u se screening. Due on due Goal Zoster vaccine ( ). Due on due Goal Td vaccine. Due on due Goal Mammogram. Due on due Goal Fall Risk. Due on due Goal Hepatitis C scre ening. Due on due Goal Colonoscopy. Due on due Goal FIT. Due on due Goal Zoster vaccine. Due on due Goal Sigmoidoscopy. Due on due Goal Lipid panel. Due on due Goal CT-Colonography. Due on due Goal Advance Care Denise nning. Due on due Goal Influenza vaccine. Due on due Goal DEXA scan. Due on due Goal Reviewed BMI. Due on 2020 due Goal Pneumococcal vac cine. Due on due Goal FOBT. Due on due Goal Annual Wellness Visit. Due on due Goal Advance Care Denise nning. Due on due Goal Depression scree sharee. Due on due Goal Influenza vaccine. Due on due Goal Mammogram. Due on 0 due Goal FIT. Due on due Goal Lipid panel. Due on due Goal Reviewed BMI. Due on 2019 due Goal DEXA scan. Due on 0 due Goal Zoster vaccine ( ). Due on due Goal Sigmoidoscopy. Due on due Goal Tdap. Due on due Goal Colonoscopy. Due on due Goal Fall Risk. Due on 0 due Goal Zoster vaccine. Due on due Goal Diabetes screening. Due on A due Goal Td vaccine. Due on 20 due Goal Mammogram. Due on 9 due Goal Sigmoidoscopy. Due on due Goal Fall Risk. Due on 9 due Goal Advance Care Denise nning. Due on due Goal DEXA scan. Due on 9 due Goal Lipid panel. Due on due Goal Diabetes screening. Due on due Goal Pneumococcal vac cine. Due on due Goal Td vaccine. Due on 19 due Goal Zoster vaccine ( ). Due on due Goal Zoster vaccine. Due on due Goal Annual Wellness Visit. Due on due Goal FIT. Due on due Goal Depression scree sharee. Due on due Goal FOBT. Due on due Goal Reviewed BMI. Due on 2018 due Goal Tdap. Due on due Goal Influenza vaccine. Due on due Goal Colonoscopy. Due on due Goal Annual Wellness Visit. Due on due Goal Lipid panel. Due on due Goal Depression scree sharee. Due on due Goal FOBT. Due on due Goal Reviewed BMI. Due on 2018 due Goal Zoster vaccine ( 1st). Due on due Goal FIT. Due on due Goal Fall Risk. Due on 9 due Goal Mammogram. Due on due Goal Colonoscopy. Due on due Goal Influenza vaccine. Due on due Goal Diabetes screening. Due on due Goal Sigmoidoscopy. Due on due Goal Pneumococcal vac cine. Due on due Goal Advance Care Denise nning. Due on due Goal Zoster vaccine. Due on due Goal Td vaccine. Due on 19 due Goal Tdap. Due on due Goal DEXA scan. Due on 9 due Goal FOBT. Due on due Goal Fall Risk. Due on 9 due Goal Annual Wellness Visit. Due on due Goal Influenza vaccine. Due on due Goal Pneumococcal vac cine. Due on due Goal Advance Care Denise nning. Due on due Goal FIT. Due on due Goal Lipid panel. Due on due Goal Mammogram. Due on 9 due Goal Diabetes screening. Due on A due Goal Zoster vaccine ( ). Due on due Goal Colonoscopy. Due on due Goal Zoster vaccine. Due on due Goal Reviewed BMI. Due on 2018 due Goal DEXA scan. Due on 9 due Goal Tdap. Due on due Goal Td vaccine. Due on 19 due Goal Depression scree sharee. Due on due Goal Sigmoidoscopy. Due on due Goal FIT. Due on due Goal Depression scree sharee. Due on due Goal Lipid panel. Due on 017 due Goal DEXA scan. Due on 7 due Goal Pneumococcal vac cine. Due on due Goal Influenza vaccine. Due on due Goal Sigmoidoscopy. Due on due Goal Td vaccine. Due on 17 due Goal FOBT. Due on due Goal Zoster vaccine. Due on due Goal Tdap. Due on due Goal Mammogram. Due on due Goal Fall Risk. Due on due Goal Colonoscopy. Due on due Goal Depression scree sharee. Due on due Goal FIT. Due on due Goal Zoster vaccine. Due on due Goal Fall Risk. Due on due Goal Colonoscopy. Due on due Goal Influenza vaccine. Due on due Goal Sigmoidoscopy. Due on due Goal DEXA scan. Due on due Goal Td vaccine. Due on due Goal Tdap. Due on due Goal FOBT. Due on due Goal Mammogram. Due on due Goal Pneumococcal vac cine. Due on due Goal Depression scree sharee. Due on due Goal DEXA scan. Due on due Goal Tdap. Due on due Goal Td vaccine. Due on due Goal Pneumococcal vac cine. Due on due Goal Influenza vaccine. Due on due Goal FIT. Due on due Goal Lipid panel. Due on due Goal Fall Risk. Due on due Goal Mammogram. Due on 5 due Goal Colonoscopy. Due on due Goal Sigmoidoscopy. Due on due Goal FOBT. Due on due Goal Zoster vaccine. Due on due Goal Tdap. Due on due Goal FOBT. Due on due Goal Depression scree sharee. Due on due Goal FIT. Due on due Goal Sigmoidoscopy. Due on due Goal Fall Risk. Due on 7 due Goal Influenza vaccine. Due on due Goal DEXA scan. Due on 7 due Goal Zoster vaccine. Due on due Goal Mammogram. Due on 5 due Goal Colonoscopy. Due on due Goal Lipid panel. Due on due Goal Pneumococcal vac cine. Due on due Goal Td vaccine. Due on 17 due Goal Td vaccine. Due on 17 due Goal Sigmoidoscopy. Due on due Goal FOBT. Due on due Goal Fall Risk. Due on 7 due Goal Mammogram. Due on 5 due Goal Zoster vaccine. Due on due Goal FIT. Due on due Goal Lipid panel. Due on due Goal Colonoscopy. Due on due Goal Pneumococcal vac cine. Due on due Goal Influenza vaccine. Due on due Goal Depression scree sharee. Due on due Goal DEXA scan. Due on due Goal Tdap. Due on due Goal Tdap. Due on due Goal FIT. Due on due Goal Zoster vaccine. Due on due Goal DEXA scan. Due on due Goal FOBT. Due on due Goal Fall Risk. Due on due Goal Td vaccine. Due on due Goal Influenza vaccine. Due on due Goal Lipid panel. Due on due Goal Pneumococcal vac cine. Due on due Goal Mammogram. Due on due Goal Depression scree sharee. Due on due Goal Colonoscopy. Due on due Goal Sigmoidoscopy. Due on due Goal Lipid panel. Due on due Goal FOBT. Due on due Goal Mammogram. Due on due Goal DEXA scan. Due on due Goal Colonoscopy. Due on due Goal Tdap. Due on due Goal Influenza vaccine. Due on due Goal Td vaccine. Due on 17 due Goal Sigmoidoscopy. Due on due Goal FIT. Due on due Goal Depression scree sharee. Due on due Goal Zoster vaccine. Due on due Goal Pneumococcal vac cine. Due on due Goal Fall Risk. Due on due Goal DEXA scan. Due on due Goal FIT. Due on due Goal Fall Risk. Due on due Goal Depression scree sharee. Due on due Goal Zoster vaccine. Due on due Goal Mammogram. Due on due Goal Lipid panel. Due on due Goal Colonoscopy. Due on due Goal Pneumococcal vac cine. Due on due Goal Sigmoidoscopy. Due on due Goal Influenza vaccine. Due on due Goal FOBT. Due on due Goal Td vaccine. Due on 17 due Goal Tdap. Due on due Goal Zoster vaccine. Due on due Goal Colonoscopy. Due on 017 due Goal DEXA scan. Due on 7 due Goal FIT. Due on due Goal Pneumococcal vac cine. Due on due Goal Lipid panel. Due on due Goal Mammogram. Due on 5 due Goal Sigmoidoscopy. Due on due Goal Fall Risk. Due on due Goal Td vaccine. Due on 17 due Goal FOBT. Due on due Goal Tdap. Due on due Goal Depression scree sharee. Due on due Goal Influenza vaccine. Due on due Goal Lipid panel. Due on due Goal Fall Risk. Due on 7 due Goal Depression scree sharee. Due on due Goal Mammogram. Due on 5 due Goal Colonoscopy. Due on due Goal FOBT. Due on due Goal FIT. Due on due Goal Influenza vaccine. Due on due Goal Zoster vaccine. Due on due Goal Sigmoidoscopy. Due on due Goal DEXA scan. Due on 7 due Goal Tdap. Due on due Goal Td vaccine. Due on 17 due Goal Pneumococcal vac cine. Due on due Goal Influenza vaccine. Due on due Goal Pap/HPV testing. Due on due Goal Depression scree sharee. Due on due Goal Td vaccine. Due on 17 due Goal Zoster vaccine. Due on due Goal FIT. Due on due Goal DEXA scan. Due on 7 due Goal Pneumococcal vac cine. Due on due Goal Tdap. Due on due Goal Colonoscopy. Due on due Goal Mammogram. Due on 5 due Goal Lipid panel. Due on 017 due Goal FOBT. Due on due Goal Sigmoidoscopy. Due on due Goal Fall Risk. Due on 7 due Goal Tobacco cessation counseling completed Referral Ordered: Harman Yen MD -[facility]opathic Physicians : Anesthesiology (related to Lumbar spinal stenosis) ordered Referral Referred To: Harman Yen MD [address] [place], [address] [phone] Ordered: Referrals: [facility] Physicians : Anesthesiology. Harman Yen MD ordered Referral Ordered: Len Mejia -Physician Assistants & Advanced Practice Nursing Providers : Physician [employer] (related to Arthritis of left shoulder region) ordered Future Order: Lab Order Robb Wi th Bronch ([id number]), Sent on: Sent Future Order: Lab Order Pap Thin Prep (PL) ([id number]), Sent on: Sent Future Order: Lab Order CBC W/Au to Differential ([id number]), Sent on: Sent Future Order: Lab Order Comprehe nsive Metabolic Panel [place] ([id number]), Sent on: Sent Future Order: Lab Order Hemoglob in A1C ([id number]), Sent on: Sent Future Order: Lab Order Lipid Pa dariel ([id number]), Sent on: Sent History Of Present Illness Encounter Date Complaint History Of Prese nt Illness Follow Up of Post Op The status of the patient has improved. The patient reports pain in the bicep. The pain level is 3/10 and occurring intermittently. The patient is using medication as needed and having good response. The patient reports no complications with the wound. Pertinent negatives include calf tenderness, chest pain, chills, dyspnea, fever and swelling. Additional information: s/p right TSA 02/06/22. Patient was to / in May, but heading to [place] for the winter. Has continued PT 3x/wk. Post Op The status of th e patient has worsened. The patient reports pain in the right shoulder. The pain level is 7/10. The patient is using medication as prescribed and having good response. The patient reports no complications with the wound. Associated symptoms include swelling. Pertinent negatives include chills and fever. Additional information: 5 wk s/p right TSA 02/06/22. Taking extra strength tylenol and tramadol, but feels like having more pain than she should be. Prineo off yesterday. Has been complaining of itching throughout upper body and has rash that has been scratching, so lots of scabs noted. Has been trying to wear sling, but has been very irritating to her. Was off meds for 1 wk after surgery, so PCP slowly adding them back. Post Op The status of th e patient has improved. The patient reports incisional pain and pain in the right shoulder. The frequency of pain is intermittent. The patient is using medication as prescribed and having good response. The patient reports no complications with the wound. Associated symptoms include swelling. Pertinent negatives include calf tenderness, chills and fever. Additional information: 2 wk s/p right TSA 02/06/22. Presents with arm out of sling- states difficulty getting it in place. Prineo intact. Fell out of bed in [facility] last night- denies any new injury. Right shoulder pain Onset: 3 yea rs ago. It occurs constantly and is worsening. Location: right shoulder. The pain is aching and sharp. The pain is aggravated by movement, reaching back and reaching forward. The pain is relieved by Diclofenac cream. Associated symptoms include Limited ROM. Hand Dominance: left. Additional information: S/P Left CATHIE 04/21/19 & Left TSA 02/13/17. 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 Left hip pain Onset: on 2019. The pain is recurring. Location of pain is left lateral hip. The patient describes the pain as sharp. Denies aggravating factors. Relieving factors include lying down. She is experiencing limping. Additional information: S/P left CATHIE, DAA, 04/21/19. Patient states she twisted & had sharp pain in her left lateral hip on 02/11/20 & x 2 again since. 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 SP Left CATHIE DAA 04-21-19 Patient returns in a along with her for post op follow up. Patient having issues with her DAENTTE hose, attempting to wear a thigh high pair that 'roll down'. Patient doing outpatient therapy in [place] Patient using 1-2 tramadol per day to manage pain, along with tylenol prn. SP Left CATHIE DAA 04-21 (comments) 15 days status post left total hip arthroplasty done through a direct anterior approach. Yeny continues to have pain but states that things are improving. She uses Tylenol along with occasional tramadol for pain relief. She is working with physical therapy and finds this beneficial. She is on aspirin for DVT prophylaxis. She was brought to the exam room in a wheelchair but does ambulate at times without any assistive device. Right arm pain Onset: gradual. Severity level is moderate. It occurs intermittently and is worsening. Location: right shoulder. The pain radiates to the right arm. The pain is throbbing. The pain is aggravated by lifting. Associated symptoms include tingling in the arms. Hand Dominance: left. Additional information: tingling in right arm pain in right shoulder/Hx of arthritis right shoulder. Left hip pain Onset: 1 year ag o. The problem is worsening. The pain is recurring. Location of pain is left left groin. There is radiation of pain to the left lateral hip. The patient describes the pain as sharp. Symptom is aggravated by climbing stairs, descending stairs, standing, sitting to standing, walking and abduction. Relieving factors include heated pool. She is experiencing crepitus and muscle spasms in legs. Pertinent negatives include stiffness. Additional information: Numerous lumbar & thoracic back surgeries, last done 2017. Did have an injury where her grandson's dog ran into her leg when while draped over a couch. 4 month recheck, Left TSA 7/3/17 4 month recheck, Left TSA 02/11/17. Good mobility left arm. Denies pain left shoulder Follow Up of injection bilateral L2-3 TESI 05/01/17 asthma Onset: since las t visit. The initial visit date was 12/13/2016. The symptoms last varies and have fluctuated. The severity level is severe persistent. Context: systemic steroid use (intermittent). Symptom relief is noted with nebulized medication only. Associated symptoms include dyspnea with moderate exercise, seasonal rhinitis symptoms and wheezing. Pertinent negatives include awakening with cough, awakening with dyspnea, dry cough, excessive sputum, hemoptysis, hoarseness, pleuritic pain, productive cough, reflux and sinusitis. Additional information: Patient had a left shoulder replacement in February. Patient had 02 sats of 82 last week at her colonoscopy. sleep apnea (follow up) The mavis ent presents for follow up of hypersomnia. The patient is also experiencing difficulty initiating sleep, difficulty maintaining sleep and wheezing. Additional information: Patient has not been using her cpap. low back pain Onset: 2 months ago. The problem is worsening. It occurs persistently. Location of pain is lower back, gluteal area and left groin. Pain is radiated to the left ankle, right ankle, left calf, right calf, left foot, right foot, left thigh and right thigh.The patient describes the pain as an ache, burning and numbness. Symptoms are aggravated by bending, changing positions, daily activities, rolling over in bed, sitting, standing, walking and night pain. Symptoms are relieved by TENS. Additional information: pt states has had back pain for the last 15 years but since shoulder surgery in February back pain has gotten worse. TENS unit on back during PT and is helping. Scheduled for bilateral L2-3 TESI on 05-01-17 @ [facility] with Dr. Yen. YOBANY Left TSA 02-11-17 Patient here along with her for left total shoulder follow up. Patient continues in her A/S immoblizer to her left arm. FYI-patient was seen in the ED/[facility] with complaints of severe right neck pain, up into my head. Patient given 2 injections, along with oral RX. YOBANY Left TSA 02-11-17 (comments) 6 weeks s/p L TSA, Yeny is doing well in regards to her shoulder. She was in the ED recently with R sided neck pain, without radiculopathy. She continues in the A/S immobilizer and with her HEP. She takes only ES Tylenol prn for pain. SP Left TSA 7-- (comments) 3 weeks s/p L TSA. Yeny is doing well, having little or no discomfort with her shoulder. She continues in the A/S immobilizer and with her HEP. SP Left TSA 7-10-26 Patient here along with her for post op follow up. Patient wearing her A/S immoblizer at all times with the exception of showering, and home exercises. Tape mostly intact to her left shoulder. fyi-patient using her abductor pillow as an arm rest rather than to abduct the left arm. Patient currently on an ATB to treat a UTI. Left shoulder pain Onset: 2 year s ago. It occurs constantly and is worsening. Location: left shoulder. The pain is aching. Context: there is no injury. The pain is aggravated by movement, eating, reaching forward and back. Associated symptoms include crepitus, nocturnal awakening and limited ROM. Hand Dominance: left. Additional information: Seen by Dr Julio Mai. Referred to you to discuss TSA. Has tried PT with some relief. shoulder pain Onset: 18 months ago. It occurs constantly. Location: left shoulder. The pain is aching. The pain is aggravated by lifting and movement. Associated symptoms include difficulty initiating sleep, nocturnal awakening, nocturnal pain and swelling. Pertinent negatives include tingling in the arms. Hand Dominance: left. Additional information: Did do PT about 18 months ago with no relief. Pain with ROM. asthma Onset: since [facility] t visit. The initial visit date was 12/13/2016. The symptoms last varies and have stabilized. The severity level is severe persistent. Context: systemic steroid use (intermittent). Symptom relief is noted with nebulized medication only. Associated symptoms include dyspnea with moderate exercise and seasonal rhinitis symptoms. Pertinent negatives include awakening with cough, awakening with dyspnea, dry cough, dyspnea at rest, hemoptysis, productive cough and wheezing. sleep apnea (follow up) The mavis ent presents for follow up of hypersomnia. The patient denies wheezing. Additional information: Patient is not using her cpap. cough The patient desc ribes the cough as productive yellow. Associated symptoms include hoarseness. Pertinent negatives include dyspnea at rest, dyspnea on exertion and heartburn. Additional information: Patient finished a zpack yesterday. sleep apnea (consult) The patien t's symptoms began gradually. The symptoms are moderate. These complaints are continuous. Relevant history: a neck circumference of 18.00 inches, uses CPAP 5 hours per night, deviated septum and hypertension. Sleepiness score is 13. Patient has previously had: CPAP with a good response. The patient is also experiencing difficulty initiating sleep, difficulty maintaining sleep, non-restorative sleep, snoring (reported by others) and weight gain. The patient denies headache or heartburn. Additional information: Patient has been using cpap since June. Patient says she cannot sleep with the cpap. Patient had her sleep study done in [place]. asthma The initial visi t date was 12/13/2016. The symptoms last varies and have worsened. The severity level is moderate persiste. Context: systemic steroid use (intermittent). Aggravating factors include environmental allergens and respiratory infection. Symptom relief is noted with beta-agonist inhaler. Associated symptoms include awakening with cough, awakening with wheeze, dyspnea with moderate exercise, hoarseness, post nasal drainage, productive cough, seasonal rhinitis symptoms and wheezing. Pertinent negatives include dyspnea at rest, excessive sputum, hemoptysis, pleuritic pain and reflux. annual exam : 4. Cherelle ty: Term: 4. Livin. Her menses is absent. Negative for: breast discharge, breast lump(s), breast pain and breast self exam.Postmenopausal: Age: 48, Type: natural. Negative for Hormone replacement therapy. Menopausal symptoms negative for: night sweats and vaginal dryness. Menopausal symptoms positive for: hot flashes and insomnia. Associated symptoms include anxiety, depression, difficulty falling sleep and sleep disturbances. Pertinent negatives include abnormal bleeding. Diet low salt. She does take multivitamins. The patient does use tobacco. Tobacco cessation has been discussed. She has not been exposed to passive smoke. She does not drink alcohol. Additional information: Recently moved here from [place]. Last pap roughly three years ago. Mammogram done today. History of right breast biopsy that showed fibrocystic disease. Has had several cervical biopsies. Several back surgeries. Functional Status Date Functional Assessmen t No Information Instructions Date Instruction Additional Infor fahad X-rays were reviewed and show that her right total shoulder replacement remains in excellent alignment and position. No hardware complication. She is doing quite well at this time. We did discuss the pop she felt and pain and she likely has a tear of her long head biceps. She does note that this continues to feel better and I did explain to her that this is nonsurgical and should go on to heal nicely. She does want another physical therapy order today so she can continue her physical therapy down in [place]. This was given to her. She may continue to progress with activities that she feels comfortable. As long as she continues to do well, we should make plans on having her follow-up in approximately 1 year with repeat x-rays. She is encouraged to contact us with any questions or concerns. Related to Presence of right artificial shoulder joint Refer to the patient plan details for instructions Related to Presence of right artificial shoulder joint Yeny may gradually wean out of the immobilizer and begin using the upper ext. for light activities as tolerated. Avoid any heavy lifting, pushing or pulling type activity. Avoid repetitive work at shoulder height or above. We will get her working with physical therapy, they can help with ROM and eventually with strengthening. We did discuss her itching and given that her incision looks so great and there is no sign of a reaction to her tape I do agree with her primary that it is likely due to something else. He is currently treating her for that. She is asked to return for follow-up with Dr. Glez in approximately 10 weeks. We will want to get x-rays at that time. She is encouraged to call sooner with questions or concerns. Related to Aftercare following right shoulder joint replacement surgery Refer to the patient plan details for instructions Related to Presence of right artificial shoulder joint Yeny had a rough w burns paiute and a half immediately following her surgery. She states that she was in a fog and had very low blood pressures. She did go to the ER and they worked her up and no additional treatment was needed. In regards to her shoulder replacement surgery, she is to continue in the A/S immobilizer with the exception of when showering or when doing home exercises. Continue home exercises as previously directed, these were reviewed. Do not attempt to lift arm up or away from body without assistance. Is asked to return for follow-up in approximately 4 weeks. She is encouraged to call sooner with any questions or concerns. Related to Aftercare following right shoulder joint replacement surgery Refer to the patient plan details for instructions Related to Aftercare following right shoulder joint replacement surgery New x-rays of her jody flood show progressive and very advanced [id number] glenohumeral joint degenerative arthritis. She comes in today specifically to discuss right total shoulder. This definitely would be the most predictable and long-term solution for her problem. She definitely has been through a lot recently with a significant spine infection with multiple surgeries and long-term intravenous antibiotic therapy. Things seem to be going along well with that. This certainly could elevate the risk of her surgery, but she is only on oral antibiotics at this point. She is thinking about surgery potentially in the spring. As long as things continue to improve and get better with her spine infection, I do think this would be reasonable. She is encouraged to call if she has questions, or when she is ready to get surgery scheduled. Related to Primary osteoarthritis, right shoulder X-rays performed tod ay of her pelvis and left hip show her left total hip arthroplasty in very good alignment and position. No problems seen radiographically. We also check some labs, which are very unimpressive. She has had multiple spine surgeries, the most recent in October, and she has had some issues from that with some infection it sounds like. She was on IV antibiotics for quite some time, and she is currently still on an oral antibiotic. CRP is very minimally elevated at 1.1. I definitely do not feel her hip is infected. Her hip moves very freely today on exam. She does have significant tenderness out over her trochanter. We discussed options today, and we will try some formal physical therapy at her request, and I do feel this should help her greatly. Should this not help, I do think an injection out into her trochanteric bursa would be a reasonable consideration as well. Related to Pain in left hip Wound care as well a s DVT prophylaxis was discussed. Patient may continue to weight-bear as tolerated and to progress with activities as tolerated. She will continue with her outpatient physical therapy and with her home exercise program. Yeny is asked to return for follow-up in 3 to 4 weeks, she is encouraged to contact us sooner with questions or concerns. Related to Status post total hip replacement, left Refer to the patient plan details for instructions Related to Status post total hip replacement, left Refer to the patient plan details for instructions Related to Status post total hip replacement, left X-rays of her cervic al spine show very advanced degenerative disc disease and posterior facet arthropathy, which is almost certainly the cause of her neck and arm pain along with numbness and tingling. She also has [id number] arthritis involving her right shoulder glenohumeral joint. This likely is contributing to her pain, I think her neck is the big culprit. She is on the schedule for a left hip replacement tomorrow. We discussed options, and we will proceed with surgery for her hip as scheduled with plans to work-up her neck further in the future if needed. Related to Cervicalgia We did get some x-ra ys of her pelvis and left hip today, and she is also had an outside MRI of her left hip, and all this does confirm moderate degenerative arthritis involving her left hip joint. Her symptoms are very classic for a bad left hip with pain felt deep in her groin with any active or passive range of motion and with any weightbearing. We discussed options today, and I do feel that a hip replacement would be a very predictable long-term solution for her, and she certainly is ready for this. She has been having progressive pain that is now very negatively affecting her everyday life. We did discuss the risks, benefits, and alternatives, and I answered multiple questions from both her and her today, and she does wish to proceed with a left direct anterior total hip arthroplasty April 21. Related to Pain in left hip 66 year-old female h as adjacent segment stenosis at L2-3 above a previous L3-5 fusion. Got her an epidural injection, she's 80% improved. We'll see how she fares with this and manage her appropriately if her pain were to return. She could be a potential surgical candidate for an extension of the fusion from L3-5 up to L2-3. Related to Spinal stenosis of lumbar region, unspecified whether neurogenic claudication present X-rays of her should er show her total shoulder replacement in great position and alignment without evidence of problems. Clinically, she could not be happier. She has better than average range of motion without any pain. She may continue with activities as she feels comfortable, and we should see her back one year from surgery with repeat x-rays, or sooner should there be questions. Related to Presence of left artificial shoulder joint she will continue cpap Related t o Obstructive sleep apnea stable. will start rehab. [facility] R elated to Severe persistent asthma, uncomplicated 66 year-old female w ho we have seen before for her shoulder, she had a total shoulder with my partner, Dr. Glez. She comes in today with lower back complaints. She has pain that radiates down into her lower extremities as well, into her upper thighs. She's had previous surgery on her lumbar spine that consists of an axial lift at L4-5, this was done in [place], and then a posterior fusion up to L3, so she has essentially a fusion at L3-5. On her MRI examination taken a year ago, she has severe stenosis above this level at L2-3. She has symptoms very consistent with this with pain into her upper thighs, worse with ambulation, better if she sits down and rests. She's done physical therapy in the past without success. Her VALENTIN score today is 66. I think she's a good candidate for an epidural injection at L2-3. We'll go ahead and get that, see her back afterwards and see how she does. Related to Lumbar spinal stenosis Yeny may wean out of the immobilizer and begin using the upper ext. for light activities as tolerated. Avoid any heavy lifting, pushing or pulling type activity. Avoid repetitive work at shoulder heighth or above. Begin PT, they can help with ROM and eventually with strengthening. Follow-up with Dr. Glez in ~ 8 weeks, x-rays at that time. She is encouraged to call sooner with questions or concerns. Related to Status post total replacement of left shoulder Refer to the patient plan details for instructions Related to Status post total replacement of left shoulder We did make some adj ustments in the A/S immobilizer today, Yeny is to continue in this with the exception of when showering or when doing home exercises. Continue home exercises as previously directed, do not attempt to lift arm up or away from body without assistance. RTC in ~ 3 weeks, call sooner with any questions or concerns. Related to Status post total replacement of left shoulder Refer to the patient plan details for instructions Related to Status post total replacement of left shoulder X-rays of her left anne medel show very advanced [id number] glenohumeral joint arthritis. She has been having pain for many years now. This is drastically affecting her everyday life, and I definitely feel that a total shoulder arthroplasty could greatly benefit her. We did discuss the risks, benefits, alternatives, and the typical postoperative course and expectations. She does understand these and she had the opportunity to ask questions about them, and she does wish to proceed with a left total shoulder arthroplasty on February 11. Related to Arthritis of left shoulder region 66 year old female alex franks comes in with left shoulder complaints. She has obvious osteoarthritis in her left shoulder with bone on bone arthritic changes. I think she can be helped quite a bit. I think the only thing that is going to help her is a total shoulder arthroplasty. I am going to refer her to my partner Dr. Glez for this. Related to Arthritis of left shoulder region patient's symptoms h ave improved. will continue neb treatments and maintenance therapy. rtc 1 month or sooner prn Related to Severe persistent asthma with (acute) exacerbation The patient has been compliant and has had good results from cpap. Continue cpap. rtc as directed Related to Obstructive sleep apnea will use steroid sintia al spray and antihistamines prn Related to Allergic rhinitis, unspecified nebulizer albuteral treatment given in clinic with some improvemnt in symptoms. Will add prednisone 30mg daily for 3 days then 20mg daily for 3 day and then 10 mg daily for 3 days. will use albuteral nebulizer four times daily and adviar bid. rtc 1 week or sooner prn. Have discussed the general pulmonary health care maintenance program with the patient including avoiding irritants, antibiotics early for chest colds and immunizations. Related to Severe persistent asthma with (acute) exacerbation will continue cpap. will review overnight polysomnography and download Related to Obstructive sleep apnea pt advised to begin a baby asa /day--carotid Us if she wishes for dizzyness but she feels it is improving so will wait-- Pap and mammo--she will rtc for fasting lab Related to ROUTINE MEDICAL EXAM Assessments Type Assessment Date No Information Patient Care Teams Name Effective Dates (start - stop) Status Members No Information
--- OUTSIDE RECORDS SUMMARY | 2024-07-08 08:30 | XMS_ITS | Continuity of Care Document ---
Author Organization [employer] [place] Address [address] [place] [address] Phone Care Team Providers Care Tax Analyst Name Role Phone Carlota Sparrow PT Unavailable Unavailable Procedures Procedure Date Therapeutic Activities Therapeutic Exercise Manual Therapy Therapeutic Activities Neuromuscular Re-Ed Therapeutic Exercise Therapeutic Activities Neuromuscular Re-Ed Therapeutic Exercise Progress Note Therapeutic Activities Neuromuscular Re-Ed Therapeutic Exercise Therapeutic Activities Neuromuscular Re-Ed Therapeutic Exercise Therapeutic Activities Neuromuscular Re-Ed Therapeutic Exercise Therapeutic Activities Neuromuscular Re-Ed Therapeutic Exercise Manual Therapy Therapeutic Activities Neuromuscular Re-Ed Therapeutic Exercise Therapeutic Activities Neuromuscular Re-Ed Therapeutic Exercise Therapeutic Activities Therapeutic Exercise Manual Therapy Therapeutic Activities Therapeutic Exercise Manual Therapy Therapeutic Activities Therapeutic Exercise Manual Therapy Therapeutic Activities Therapeutic Exercise Manual Therapy Doc neg elder mal no plan PRES/ABSN URINE INCON ASSESS PT Evaluation High Complexity Therapeutic Activities Therapeutic Exercise Therapeutic Activities Neuromuscular Re-Ed Therapeutic Exercise Progress Note Therapeutic Activities Neuromuscular Re-Ed Therapeutic Exercise Therapeutic Activities Neuromuscular Re-Ed Therapeutic Exercise Therapeutic Activities Neuromuscular Re-Ed Therapeutic Exercise Therapeutic Activities Neuromuscular Re-Ed Therapeutic Exercise Therapeutic Activities Neuromuscular Re-Ed Therapeutic Exercise Therapeutic Activities Neuromuscular Re-Ed Therapeutic Exercise Therapeutic Activities Neuromuscular Re-Ed Therapeutic Exercise Therapeutic Activities Neuromuscular Re-Ed Therapeutic Exercise Therapeutic Activities Neuromuscular Re-Ed Therapeutic Exercise Therapeutic Activities Neuromuscular Re-Ed Therapeutic Exercise Doc neg elder mal no plan PRES/ABSN URINE INCON ASSESS PT Evaluation High Complexity Therapeutic Activities Neuromuscular Re-Ed Therapeutic Exercise Therapeutic Activities Therapeutic Exercise Therapeutic Activities Therapeutic Exercise Therapeutic Activities Therapeutic Exercise Therapeutic Activities Therapeutic Exercise Therapeutic Activities Therapeutic Exercise Manual Therapy Therapeutic Exercise Therapeutic Activities Therapeutic Activities Manual Therapy Therapeutic Exercise Therapeutic Activities Therapeutic Exercise Manual Therapy Doc neg elder mal no plan Therapeutic Exercise Therapeutic Activities PT Evaluation Moderate Complexity Therapeutic Activities PT Re-Evaluation Neuromuscular Re-Ed Therapeutic Exercise Therapeutic Activities Therapeutic Exercise Neuromuscular Re-Ed Neuromuscular Re-Ed Therapeutic Activities Progress Note Therapeutic Activities Neuromuscular Re-Ed Neuromuscular Re-Ed Therapeutic Activities Therapeutic Activities Neuromuscular Re-Ed Neuromuscular Re-Ed Therapeutic Activities Neuromuscular Re-Ed Therapeutic Activities Therapeutic Activities Therapeutic Activities Therapeutic Exercise PT Evaluation High Complexity Therapeutic Activities Therapeutic Exercise Therapeutic Exercise Therapeutic Activities Electrical Stimulation Therapeutic Activities Therapeutic Exercise Electrical Stimulation Therapeutic Activities Electrical Stimulation Therapeutic Exercise Therapeutic Activities Therapeutic Exercise Electrical Stimulation Therapeutic Exercise Therapeutic Activities Electrical Stimulation Therapeutic Activities Therapeutic Exercise Electrical Stimulation Manual Therapy Therapeutic Exercise Therapeutic Activities Electrical Stimulation Therapeutic Exercise Therapeutic Activities Electrical Stimulation Therapeutic Exercise Electrical Stimulation Therapeutic Activities PT Evaluation High Complexity 0 Therapeutic Activities Therapeutic Exercise Electrical Stimulation PT Evaluation Low Complexity Therapeutic Activities Manual Therapy Therapeutic Activities Neuromuscular Re-Ed Therapeutic Exercise Therapeutic Activities Neuromuscular Re-Ed Therapeutic Exercise Therapeutic Activities Neuromuscular Re-Ed Therapeutic Exercise Therapeutic Activities Therapeutic Exercise Electrical Stimulation Therapeutic Activities Therapeutic Exercise Electrical Stimulation Manual Therapy Therapeutic Activities Therapeutic Exercise Electrical Stimulation Progress Note Therapeutic Activities Therapeutic Exercise Electrical Stimulation Therapeutic Activities Manual Therapy Therapeutic Exercise Electrical Stimulation Therapeutic Activities Therapeutic Exercise Manual Therapy Electrical Stimulation Therapeutic Activities Therapeutic Exercise Manual Therapy Electrical Stimulation Therapeutic Activities Therapeutic Exercise Manual Therapy Electrical Stimulation Therapeutic Activities Therapeutic Exercise Electrical Stimulation PT Evaluation Moderate Complexity Therapeutic Exercise Therapeutic Activities Electrical Stimulation Advance Directives Directive Yes / No Effective Date File Name No Information Encounters Encounter Description Practice Location Reason(s) For Visit Diagnoses Date Provider Providers Copied on Encounter [facility] , [address], [place], [place], [id number], [place] tel:[phone] [place] No Information Ladwig Carlota. . [facility], [address], [place], [place], [address], [place] tel:[phone] [place] No Information Ladwig Carlota. . [facility] [address], [place], [place], [address], [place] tel:[phone] [place] No Information Ladwig Carlota. . [facility], [address], [place], [place], [address], [place] tel:[phone] [place] No Information Ladwig Carlota. . [facility], [address], [place], [place], [address], [place] tel:[phone] [place] No Information Ladwig Carlota. . [facility], [address], [place], [place], [address], [place] tel:[phone] [place] No Information Ladwig Carlota. . [facility], [address], [place], [place], [address], [place] tel:[phone] [place] No Information Ladwig Carlota. . [facility], [address], [place], [place], [address], [place] tel:[phone] [place] No Information Ladwig Carlota. . [facility], [address], [place], [place], [address], [place] tel:[phone] [place] No Information Ladwig Carlota. . [facility], [address], [place], [place], [address], [place] tel:[phone] [place] No Information Ladwig Carlota. . [facility], [address] [facility], [place], [place], [address], [place] tel:[phone] [place] No Information Ladwig Carlota. . [facility], [address], [place], [place], [address], [place] tel:[phone] [place] No Information Ladwig Carlota. . [facility], [address], [place], [place], [address], [place] tel:[phone] [place] No Information Ladwig Carlota. . [facility], [address], [place], [place], [address], [place] tel:[phone] [place] No Information Ladwig Carlota. . [facility], [address], [place], [place], [address], [place] tel:[phone] [place] No Information Ladwig Carlota. . [facility], [address], [place], [place], [address], [place] tel:[phone] [place] No Information Ladwig Carlota. . [facility], [address], [place], [place], [address], [place] tel:[phone] [place] No Information Ladwig Carlota. . [facility], [address], [place], [address], [place] tel:[phone] [place] No Information Ladwig Carlota. . [facility], [address], [place], [place], [address], [place] tel:[phone] [place] No Information Ladwig Carlota. . [facility], [address], [place], [place], [address], [place] tel:[phone] [place] No Information Ladwig Carlota. . [facility], [address], [place], [place], [address], [place] tel:[phone] [place] No Information Ladwig Carlota. . [facility], [address], [place], [place], [address], tel:[phone] [place] No Information Ladwig Carlota. . [facility], [address], [place], [place], [address], [place] tel:[phone] [place] No Information Ladwig Carlota. . [facility], [address], [place], [place], [address], [place] tel:[phone] [place] No Information Ladwig Carlota. . [facility], [address], [place], [place], [address], [place] tel:[phone] [place] No Information Ladwig Carlota. . [facility], [address], [place], [place], [address], [place] tel:[phone] [place] No Information Ladwig Carlota. . [facility], [address], [place], [place], [address], [place] tel:[phone] [place] No Information Ladwig Carlota. . Referring Provider: Ron Feldman, [address], [place], [address]. tel:[phone] [facility], [address], [place], [place], [address], [place] tel:[phone] [place] No Information Ladwig Carlota. . Referring Provider: Ron Feldman, [address], [place], [address]. tel:[phone] [facility], [address], [place], [place], [address], [place] tel:[phone] [place] No Information Ladwig Carlota. . Referring Provider: Ron Feldman, [address], [place], [address]. tel:[phone] [facility], [address], [place], [place], [address], [place] tel:[phone] [place] No Information Ladwig Carlota. . Referring Provider: Ron Feldman, [address], [place], [address]. tel:[phone] [facility], [address], [place], [place], [address], [place] tel:[phone] [place] No Information Ladwig Carlota. . Referring Provider: Ron Feldman, [address], [place], [address]. tel:[phone] [facility], [address], [place], [place], [address], [place] tel:[phone] [place] No Information Ladwig Carlota. . Referring Provider: Ron Feldman, [address], [place], [address]. tel:[phone] [facility], [address], [place], [place], [address], [place] tel:[phone] [place] No Information Ladwig Carlota. . Referring Provider: Ron Feldman, [address], [place], [address]. tel:[phone] [facility], [address], [place], [place], [address], [place] tel:[phone] [place] No Information Ladwig Carltoa. . Referring Provider: Ron Feldman, [address], [place], [address]. tel:[phone] [facility], [address] [facility], [place], [place], [address], tel:[phone] [place] No Information Shantal Grayson. . Referring Provider: Ron Feldman, [address], [place], [address]. tel:[phone] [facility], [address] [address], [place], [place], [address], tel:[phone] [place] No Information Tubbesing Ric. . [facility] [address], [place], [place], [address], [place] tel:[phone] [place] No Information Kyara Harrington. . [facility] [address], [place], [place], [address], tel:[phone] [place] No Information Tubbesing Ric. . [facility] [address], [place], [place], [address], [place] tel:[phone] [place] No Information Tubbesing Ric. . [facility] [address], [place], [place], [address], tel:[phone] [place] No Information Tubbesing Ric. . [facility], [address], [place] tel:[phone] [place] No Information Tubbesing Ric. . [facility] [address], [place], [place], [address], [place] tel:[phone] [place] No Information Tubbesing Ric. . [facility], [address], tel:[phone] [place] No Information Tubbesing Ric. . [facility], [address] [facility], [place], [place], [address], [place] tel:[phone] [place] No Information Ladwig Carlota. . [facility], [address], [place], [place], [address], [place] tel:[phone] [place] No Information Ladwig Carlota. . [facility], [address] [facility], [place], [place], [address], [place] tel:[phone] [place] No Information Ladwig Carlota. . [facility], [address] [facility], [place], [place], [address], [place] tel:[phone] [place] No Information Ladwig Carlota. . Referring Provider: Ron Feldman, [address], [place], [address]. tel:[phone] [facility], [address] [address], [place], [place], [address], [place] tel:[phone] [place] No Information Ladwig Carlota. . Referring Provider: Ron Feldman, [address], [place], [address]. tel:[phone] [facility], [address] [address], [place], [place], [address], [place] tel:[phone] [place] No Information Ladwig Carlota. . Referring Provider: Ron Feldman, [address], [place], [address]. tel:[phone] [facility], [address], [place], [place], [address], [place] tel:[phone] [place] No Information Ladwig Carlota. . Referring Provider: Ron Feldman, [address], [place], [address]. tel:[phone] [facility], [address], [place], [place], [address], [place] tel:[phone] [place] No Information Ladwig Carlota. . Referring Provider: Ron Feldman, [address], [place], [address]. tel:[phone] [facility], [address], [place], [place], [address], [place] tel:[phone] [place] No Information Ladwig Carlota. . Referring Provider: Ron Feldman, [address], [place], [address]. tel:[phone] [facility], [address], [place], [place], [address], [place] tel:[phone] [place] No Information Ladwig Carlota. . Referring Provider: Ron Feldman, [address], [place], [address]. tel:[phone] [facility], [address], [place], [place], [address], [place] tel:[phone] [place] No Information Ladwig Carlota. . Referring Provider: Ron Feldman, [address], [place], [address]. tel:[phone] [facility], [address], [place], [place], [address], [place] tel:[phone] [place] No Information Ladwig Carlota. . Referring Provider: Long Glez, [address], [place], [address]. tel:[phone] [facility], [address], [place], [place], [address], [place] tel:[phone] [place] No Information Ladwig Carlota. . Referring Provider: Long Glez, [address], [place], [address]. tel:[phone] [facility], [address] [place] [address] [address], [place], [place], [address], [place] tel:[phone] [place] No Information Ladwig Carlota. . [facility], [facility] [address], [place], [place], [address], [place] tel:[phone] [place] No Information Ladwig Carlota. . Referring Provider: Long Glez, [address], [place], [address]. tel:[phone] [facility], [address], [place], [place], [address], [place] tel:[phone] [place] No Information Ladwig Carlota. . Referring Provider: Long Glez, [address], [place], [address]. tel:[phone] [facility], [address], [place], [place], [address], [place] tel:[phone] [place] No Information Ladwig Carlota. . Referring Provider: Long Glez, [address], [place], [address]. tel:[phone] [facility], [address], [place], [place], [address], [place] tel:[phone] [place] No Information Ladwig Carlota. . Referring Provider: Long Glez, [address], [place], [address]. tel:[phone] [facility], [address], [place], [place], [address], [place] tel:[phone] [place] No Information Ladwig Carlota. . Referring Provider: Lnog Glez, [address], [place], [address]. tel:[phone] [facility], [facility] [address], [place], [place], [address], tel:[phone] [place] No Information Ladwig Carlota. . Referring Provider: Long Glez, [address], [place], [address]. tel:[phone] [facility], [facility] [address], [place], [place], [address], [place] tel:[phone] [place] No Information Ladwig Carlota. . Referring Provider: Long Glez, [address], [place], [address]. tel:[phone] [facility], [address] [place], [place] [address], [place], [place], [address], [place] tel:[phone] [place] No Information Ladwig Carlota. . Referring Provider: Long Glez, [address], [place], [address]. tel:[phone] [facility], [address] [place], [place] [address], [place], [place], [address], tel:[phone] [place] No Information Ladwig Carlota. . Referring Provider: Long Glez, [address], [place], [address]. tel:[phone] [facility], [address] [place], [place] [address], [place], [place], [address], [place] tel:[phone] [place] No Information Ladwig Carlota. . Referring Provider: Long Glez, [address], [place], [address]. tel:[phone] [facility], [address], [place], [place], [address], tel:[phone] [place] No Information Ladwig Carlota. . Referring Provider: Long Glez, [address], [place], [address]. tel:[phone] [facility], [address], [place], [place], [address], tel:[phone] [place] No Information Ladwig Carlota. . Referring Provider: Logn Glez, [address], [place], [address]. tel:[phone] [facility], [address], [place], [place], [address], tel:[phone] [place] No Information Ladwig Carlota. . Referring Provider: Long Glez, [address], [place], [address]. tel:[phone] Family History Family Member Type Diagnosis Age At Onset No Information Payers Payer name Insurance type Covered democrat ID liliana malikdinah(s) Medicare [place] [id number] [facility] [id number] [place] [id number] Social History Type Description Quantity Date Captured Comments Sex Female Smoking Status No Information Chief Complaint And Reason For Visit No Information Reason For Referral Reason For Referral No Information History Of Present Illness Encounter Date Complaint History Of Prese nt Illness No Information Functional Status Date Functional Assessmen t No Information Instructions Date Instruction Additional Infor mation Giving encouragement to exercise Related to Overweight Giving encouragement to exercise Related to Overweight Giving encouragement to exercise Related to Overweight Giving encouragement to exercise Related to Overweight Giving encouragement to exercise Related to Overweight Giving encouragement to exercise Related to Overweight Giving encouragement to exercise Related to Overweight Assessments Type Assessment Date No Information Patient Care Teams Name Effective Dates (start - stop) Status Members No Information
--- NOTE | ~2025-06-23 | XR_ITS ---
XR abdomen gastric tube insert INDICATION: replaced G-tube REFERENCE: NONE FINDINGS: AP view of the abdomen were obtained before and after administration of Gastrografin through the indwelling gastric tube. Contrast distends the bowel loops and stomach. No extravasation is seen. IMPRESSION: Gastric tube is in place. Reviewed, dictated and finalized at location S. ONAL ACCOUNT EXECUTIVE IMPRESSION: Gastric tube is in place.
--- NOTE | 2025-06-23 20:55 | ED.GENADULT ---
HPI - General Adult General Chief complaint: Unspecified Stated complaint: g-tube displacement Time Seen by Provider: 06/23/25 20:49 History of Present Illness HPI narrative: 74-year-old female presents emergency department for evaluation for a displaced G-tube. Patient reports that fell out just prior to arrival. Patient typically has an 18 Togolese G-tube. Related Data Home Medications ?Medication ?Instructions ?Recorded ?Confirmed ?Last Taken ?Type albuterol sulfate 90 mcg/actuation 1 inh inhalation Q4H PRN wheezing 05/17/25 05/17/25 Unknown History aerosol inhaler (Ventolin HFA) alendronate 70 mg tablet 70 mg PO WEEKLY 05/17/25 05/17/25 Unknown History allopurinol 300 mg tablet 300 mg PO QHS 05/17/25 05/17/25 Unknown History amlodipine 5 mg tablet 5 mg PO DAILY 05/17/25 05/17/25 Unknown History aspirin 81 mg tablet,delayed 81 mg PO .qd 05/17/25 05/17/25 Unknown History release bupropion HCl 300 mg 24 hr tablet, 300 mg PO .qd 05/17/25 05/17/25 Unknown History extended release duloxetine 60 mg capsule,delayed 60 mg PO QHS 05/17/25 05/17/25 Unknown History release furosemide 40 mg tablet (Lasix) 40 mg PO DAILY 05/17/25 05/17/25 Unknown History levothyroxine 100 mcg tablet 100 mcg PO .qd 05/17/25 05/17/25 Unknown History meclizine 25 mg tablet 25 mg PO TID PRN dizziness 05/17/25 05/17/25 Unknown History naproxen 250 mg tablet 500 mg PO TID 05/17/25 05/17/25 Unknown History omeprazole 40 mg capsule,delayed 40 mg PO DAILY PRN GERD 05/17/25 05/17/25 Unknown History release ropinirole 2 mg tablet 2 mg PO QHS 05/17/25 05/17/25 Unknown History Allergies Allergy/AdvReac Type Severity Reaction Status Date / Time gabapentin (Neurontin) Allergy Intermediate Unknown Verified 05/17/25 01:38 sulfadiazine Allergy Unknown Unknown Verified 05/17/25 01:38 codeine Allergy Unknown Verified 05/17/25 01:38 Bee stings Allergy Severe Unknown Uncoded 05/17/25 01:37 Review of Systems Review of Systems: All systems reviewed & are unremarkable except as noted in HPI and below [facility] Social History Social History Smoking status: Former smoker Tobacco type: cigarettes Second hand tobacco smoke exposure: No Alcohol intake: never Substance use: never Lack of Transportation: No Lack of Food: Never True Current Housing: I Have Housing Concerned About Future Housing: No Difficulty Paying Gas/Electric Bills: No Difficulty Paying for Meds: No Currently Unemployed: No Education: Associate Degree Difficulty w/ Childcare or Family Care: No Spiritual care concerns: No Exam Narrative: APPEARANCE: Well appearing, no pain, no distress, well-nourished. HEAD: normocephalic, atraumatic. EYES: PERRLA/EOMI, conjunctivae clear. NOSE: Normal no drainage EARS:TMS clear with good light reflex. THROAT: Pharynx clear, no exudate. NECK: Supple. No adenopathy, no masses. RESPIRATORY: Airway patent, respirations nonlabored. Clear to auscultation bilaterally, no rales, rhonchi, wheezing. CARDIOVASCULAR: Regular rate and rhythm without murmurs rubs or gallops. ABDOMINAL: Well-appearing G-tube site MUSCULOSKELETAL: Moves all extremities. Strength/ROM intact, No edema, No calf tenderness. NEURO: Alert. Cranial nerves II through XII intact. Good gait. Good coordination SKIN: Warm, dry. Normal Color Procedures Feeding Tube Replacement Feeding Tube #1: Type of Tube: gastrostomy Insertion Site Prior to Procedure: clean Tube Used for Reinsertion: Bard T[place]ese Tube Size (F): 16 Balloon size (mL): 5 Verification of Placement: auscultation and KUB Tube Secured by: attachment device Patient Tolerated Procedure: well and no complications Medical Decision Making MDM Narrative Medical decision making narrative: Attempted to replace the G-tube with an 18 [place]ese and patient was feeling discomfort. Converted to a 16 [place]ese and patient tolerated this without issue. X-ray does show proper placement. Patient was discharged back to her care facility. Discharge Plan Discharge Clinical Impression: Gastrojejunostomy tube dislodgement Patient Disposition: [facility]/Asst Living Condition: Stable Instructions: Antibiotic Form Additional Instructions: Your g tube was converted to a 16 [place]ese. Have close follow-up with your primary care physician and GI. Patient Language: [place] Prescriptions: No Action allopurinol 300 mg tablet 300 mg PO QHS aspirin 81 mg tablet,delayed release (DR/EC) 81 mg PO .qd bupropion HCl 300 mg tablet extended release 24 hr 300 mg PO .qd duloxetine 60 mg capsule,delayed release(DR/EC) 60 mg PO QHS levothyroxine 100 mcg tablet 100 mcg PO .qd meclizine 25 mg tablet 25 mg PO TID PRN (Reason: dizziness) ropinirole 2 mg tablet 2 mg PO QHS naproxen 250 mg tablet 500 mg PO TID furosemide [Lasix] 40 mg tablet 40 mg PO DAILY amlodipine 5 mg tablet 5 mg PO DAILY alendronate 70 mg tablet 70 mg PO WEEKLY Rx Instructions: LAST GIVEN 05/11/2025 omeprazole 40 mg capsule,delayed release(DR/EC) 40 mg PO DAILY PRN (Reason: GERD) albuterol sulfate [Ventolin HFA] 90 mcg/actuation HFA aerosol inhaler 1 inh inhalation Q4H PRN (Reason: wheezing) cefdinir 300 mg capsule 300 mg PO Q12H Qty: 7 0RF Rx Instructions: start on 05/18/2025 at 2100 potassium chloride [K-Tab] 20 mEq tablet extended release 20 meq PO DAILY Qty: 30 0RF lorazepam 0.5 mg tablet 1 mg PO .qd PRN (Reason: Agitation) Qty: 14 0RF Follow-up/Referrals: Juliane,Jorge Green [Primary Care Provider]
--- OUTSIDE RECORDS SUMMARY | 2025-06-23 21:09 | XMS_ITS | Clinical Summary ---
Author Organization [facility] Address [address] [place] [address] Care Team Providers Care Nitrogen Operator Name Role Phone Ambar Doss Primary Care Provider [phone]- [phone] Allergies Active Allergy Reactions Criticality Noted Date Comments Codeine Nausea and Vomiting,Rash High 03/04/2015 Gabapentin Anaphylaxis High 03/04/2015 Penicillins Rash High 03/04/2015 As a child Sulfa Antibiotics Nausea and Vomiting 6 Medications [...] mg total) by mouth every 7 days. Takes on Wednesdays 5 Active buPROPion XL (WELLBUTRIN XL) 300 [...] 1 capsule (40 mg total) by mouth daily as needed. Active naproxen (NAPROSYN) 250 MG tablet Take 2 tablets (500 mg total) by mouth 2 (two) times daily as needed. Active potassium chloride CR (KLOR-CON M) 20 MEQ tablet Take 1 tablet (20 mEq total) by mouth daily. Active diclofenac sodium (VOLTAREN) 1 % gel Apply topically 4 (four) times daily. Active Active Problems Problem Noted Date Diagnosed Date Cervical stenosis of spine 05/28/2025 Cervical stenosis of spinal canal 05/27/2025 Status post cervical spinal fusion 05/27/2025 Chronic obstructive pulmonary disease 04/20/2024 Hydrocephalus 04/20/2024 Urinary tract infectious disease 04/20/2024 Cervical spondylosis without myelopathy 04/17/20 24 Displacement of cervical intervertebral disc 01/2024 Fibromyalgia 04/17/2024 Posttraumatic stress disorder 04/17/2024 Hyperlipidemia 04/17/2024 Irritable bowel syndrome 04/17/2024 Localized, primary osteoarthritis of shoulder re gion 04/17/2024 Normal pressure hydrocephalus 04/17/2024 Central sleep apnea syndrome 04/17/2024 Stage 3 chronic kidney disease 04/17/2024 Vitamin D deficiency 04/17/2024 Urge incontinence of urine 05/30/2020 Abdominal wall lump 04/04/2020 Acute bilateral low back pain without sciatica 0 03/18/2020 Disorder of brain 03/15/2020 Asthma 05/27/2019 Marte's esophagus 05/27/2019 Elevated liver enzymes 05/27/2019 Lumbar spinal stenosis 05/27/2019 Gastroesophageal reflux disease 05/27/2019 Generalized anxiety disorder 05/27/2019 Obstructive sleep apnea 05/27/2019 Peripheral arterial disease 05/27/2019 Primary osteoarthritis of left hip 05/27/2019 Restless legs syndrome 05/27/2019 Skin cancer, basal cell 05/27/2019 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 05/27/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 02/09 Myalgia 02/26/2014 Depression 02/26/2014 Fibromyositis 02/26/2014 Gout 02/26/2014 Hypothyroidism (acquired) 02/26/2014 Hypertensive disorder 02/26/2014 Resolved Problems Problem Noted Date Diagnosed Date Resolved Date Abnormal breast thermography 04/17/2024 05/27/2025 COVID-19 04/17/2024 05/27/2025 Hypokalemia 04/17/2024 05/27/2025 Subacute osteomyelitis, other site 07/05/2020 05/27/2025 Severe persistent asthma wit h (acute) exacerbation 03/18/2020 05/27/2025 Major depressive disorder with single episode 05/27/20 19 05/27/2025 Other urethritis 05/27/2019 05/27/2025 Anxiety state 02/26/2014 05/27/2025 Encounters Date Type Department Care Team Description 05/27/2025 8:30 AM CDT - 05/27/2025 10:[address] [facility] [address] [place] [address] Michele Hansen MD DISCECTOMY AND FUSION SPINAL ANTERIOR CERVICAL C4-5.C5-6.C6-7 05/27/2025 8:29 AM CDT Anesthesia Event [facility] [address] [place] [address] Janell Delatorre MD Coonrod, Sheila A, RN 05/27/2025 6:17 AM CDT - 06/11/2025 2:04 PM CDT Hospital Encounter [facility] [address] [place] [address] Michele Hansen MD Yaseen, Maryam, MD Ahmad, Saad N, MD Dangol, Gulshan M, MD Missula, Venkata R Karthik, MD Boshnaf, Mohamed, MD Discharge Disposition: Alf Facility 05/27/2025 Travel 05/19/2025 Travel 04/29/2025 Scan [facility] [address] [place] [address] Scanned, Doc Hospital Image (SCAN); Lab (SCAN) (/) 04/05/2025 Scan [facility] [address] [place] [address] Scanned, Doc Hospital ECG (SCAN) from Last [...] drink = 0.6 oz pur e alcohol) Humiliation, Afraid, Rape, and Kick questionnair e Answer Date Recorded Within the last year, have y ou been afraid of your partner or ex-partner? No 05/28/2025 Within the last year, have y ou been humiliated or emotionally abused in other ways by your partner or ex-partner? No Within the last year, have y ou been kicked, hit, slapped, or otherwise physically hurt by your partner or ex-partner? No 05/28/2025 Within the last year, have y ou been raped or forced to have any kind of sexual activity by your partner or ex-partner? No 05/28/2025 Overall Financial Resource Strain (CARDIA) Answe r Date Recorded How hard is it for you to pa y for the very basics like food, housing, medical care, and heating? Patient declined 05/28/2025 Hunger Vital Sign Answer Date Recorded Within the past 12 months, y ou worried that your food would run out before you got the money to buy more. Patient declined Within the past 12 months, t he food you bought just didn't last and you didn't have money to get more. Patient declined PRAPARE - Transportation Answer Date Re corded In the past 12 months, has l ack of transportation kept you from medical appointments or from getting medications? Patient declined 05/28/2025 In the past 12 months, has l ack of transportation kept you from meetings, work, or from getting things needed for daily living? Patient declined 05/28/2025 Housing Stability Vital Sign Answer Simon e Recorded In the last 12 months, was t here a time when you were not able to pay the mortgage or rent on time? Patient declined 05/28/20 25 In the past 12 months, how m any times have you moved where you were living? 0 05/28/2025 At any time in the past 12 m [facility], were you homeless or living in a [facility] (including now)? Patient declined 05/28/2025 [facility] Utilities Answer Date Recorded In the past 12 months has th e [employer], gas, oil, or water [employer] threatened to shut off services in your home? Patient declined 05/28/2025 Comments Unknown Sex and Gender Information Value Date Recorded Sex Assigned at Female 05/27/2025 2:47 PM CDT Legal Sex Female 6:25 PM CDT Gender Identity Not on file Sexual Orientation Not on file Last Filed Vital Signs Vital Sign Reading Time Taken Comments Blood Pressure 124/70 06/11/2025 7:47 AM CDT Pulse 95 06/11/2025 7:47 AM CDT Temperature 36.5 C (97.7 F) 06/11/2025 7:46 AM CDT Respiratory Rate 16 06/11/2025 12:16 AM CDT Oxygen Saturation 91% 06/11/2025 7:47 AM CDT Inhaled Oxygen Concentration - - Weight 88 kg (194 lb 0.1 oz) 05/28/2025 3:00 PM CDT Height 162.6 cm (5' 4) 05/28/2025 3:00 PM CDT Body Mass Index 33.3 05/28/2025 3:00 PM CDT Plan of Treatment Health Maintenance Due Date Last Done Comments Colorectal Cancer Screening Colonoscopy (10 Years) 1950 EGD-Marte's Surveillance 1950 Hepatitis C 1968 Zoster Vaccines (1 of 2) 2000 RSV Immunization or 60+ Years (1 - Risk 60-74 years 1-dose series) 2010 Annual Medicare Wellness Visit 12/25/2015 Dexa Scan (General) 12/25/2015 ASCVD LDL 09/12/2018 09/12/2017 Mammogram Screening 03/01/2025 03/01/2023 COVID-19 Vaccine ( - 2024-2 6 season) 2025 04/26/2021, 11/23/2020, 11/02/2020 Influenza Adult (#1) 2025 05/16/2020, 05/26/2018, 05/21/2016 DTaP, Tdap and Td Vaccines ( 2 [...] on patient's age to complete this topic Medical Devices Implanted Type Area Avionics Engineer Device Identifier Shelf Expiration Date Model / Serial / Lot Graft Bone I Factor 1cc Allograft Putty Syringe - [id number] Implanted:Qty: 1 on 05/27/2025 by Michele Hansen MD at [facility] Bone N/A: Spine Cervical [employer] 08/11/2026 [id number] / / [id number] Agent Hemostatic Surgiflo 8 Ml Kit - [id number] Implanted:Qty: 1 on 05/27/2025 by Michele Hansen MD at [facility] Sealant N/A: Spine Cervical [employer] 09/11/2026 [id number] / / [id number] Stf Screw 14 Mm Implanted:Qty: 3 on 05/27/2025 by Sumit Almeida MD at [facility] N/A: Spine Cervical [employer] [id number] / / Atrix-C Cervical Interbody Allograft 7 Degree Lordotic, 11 X 14 X 6 Mm Implanted:Qty: 1 on 05/27/2025 by Michele Hansen MD at [facility] N/A: Spine Cervical [employer] 10/06/2029 [id number] / [id number] / [id number] Atrix-C Cervical Interbody Allograft, 7 Degree Lordotic, 11 X 14 X 6 Mm Implanted:Qty: 1 on 05/27/2025 by Michele Hansen MD at [facility] N/A: Spine Cervical [employer] 10/20/2029 [id number] / [id number] / Atrix-C Cervical Interbody, Allograft, 7 Degree Lordotic, 11 X 14 X 6 Mm Implanted:Qty: 1 on 05/27/2025 by Michele Hansen MD at [facility] N/A: Spine Cervical [employer] 10/06/2029 [id number] / [id number] / Plate 48 Mm Implanted:Qty: 1 on 05/27/2025 by Sumit Almeida MD at [facility] N/A: Spine Cervical [facility] 8 / / Self Drilling Variable Screw 14 Mm Implanted:Qty: 5 on 05/27/2025 by Sumit Almeida MD at [facility] N/A: Spine Cervical [facility] 4 / / Self Drilling Variable Screw 12 Mm Implanted:Qty: 2 on 05/27/2025 by Sumit Almeida MD at [facility] N/A: Spine Cervical [facility] 2 / / Explanted Type Area Avionics Engineer Device Identifier Shelf Expiration Date Model / Serial / Lot Pin Distraction Medline 12mm - [id number] Explanted:Qty: 2 on 05/27/2025 at [facility] Pin N/A: Spine Cervical [employer] 09/11/2029 [id number] / / [id number] Drill Bit 12 Explanted:Qty: 1 on 05/27/2025 by Sumit Almeida MD at [facility] N/A: Spine Cervical [facility] 5-12 / / Procedures Procedure Name Priority Date/Time Associated Diagnosis Comments POCT GLUCOSE - DOCKED DEVICE Routine 06/11/2025 6:04 AM CDT PHOSPHORUS, INORGANIC PHOSPHATE Routine 06/11/2025 5:17 AM CDT MAGNESIUM Routine 06/11/2025 5:17 AM CDT CBC W/DIFF AUTOMATED Routine 06/11/2025 5:17 AM CDT COMPREHENSIVE METABOLIC PANEL Routine 06/11/2025 5:17 AM CDT POCT GLUCOSE - DOCKED DEVICE Routine 06/11/2025 12:18 AM CDT CBC W/DIFF AUTOMATED Routine 06/10/2025 4:48 AM CDT COMPREHENSIVE METABOLIC PANEL Routine 06/10/2025 4:[address] CERV SPINE WO CON Today 06/09/2025 2:00 PM CDT COMPREHENSIVE METABOLIC PANEL Routine 06/09/2025 4:28 AM CDT IR PERC MEHUL CATH PLCMNT Today 06/08/2025 12:35 PM CDT XR ABD KUB Today 06/08/2025 8:24 AM CDT POCT GLUCOSE - DOCKED DEVICE Routine 06/08/2025 5:27 AM CDT HC COMPREHENSIVE METABOL PANEL Routine 06/08/2025 4:59 AM CDT HC CBC AUTO W/AUTO DIFF Routine 06/08/2025 4:59 AM CDT HC PROTHROMBIN TIME (PT) Routine 06/08/2025 4:59 AM CDT MRI CERV SPINE WO CON Today 06/08/2025 3:16 AM CDT POCT GLUCOSE - DOCKED DEVICE Routine 06/07/2025 5:16 PM CDT HC BASIC METABOLIC PANEL STAT 06/07/2025 12:38 PM CDT HC CBC AUTO W/AUTO DIFF STAT 06/07/2025 12:38 PM CDT POCT GLUCOSE - DOCKED DEVICE Routine 06/07/2025 11:14 AM CDT XR SPEECH SWALLOW SJS ONLY Routine 06/07/2025 9:33 AM CDT POCT GLUCOSE - DOCKED DEVICE Routine 06/07/2025 5:31 AM CDT POCT GLUCOSE - DOCKED DEVICE Routine 06/06/2025 11:09 PM CDT MRI BRAIN WO CON Today 06/03/2025 11:09 PM CDT POCT GLUCOSE - DOCKED DEVICE Routine 06/03/2025 4:22 PM CDT VITAMIN B-12 Routine 06/03/2025 1:48 PM CDT MAGNESIUM Routine 06/03/2025 5:00 AM CDT CBC, AUTO, NO DIFF Routine 06/03/2025 5:00 AM CDT BASIC METABOLIC PANEL Routine 06/03/2025 5:00 AM CDT CBC W/DIFF AUTOMATED Routine 06/02/2025 5:06 AM CDT BASIC METABOLIC PANEL Routine 06/02/2025 5:06 AM CDT PHOSPHORUS, INORGANIC PHOSPHATE Routine 06/01/2025 5:24 AM CDT MAGNESIUM Routine 06/01/2025 5:24 AM CDT CBC, AUTO, NO DIFF Routine 06/01/2025 5:24 AM CDT BASIC METABOLIC PANEL Routine 06/01/2025 5:24 AM CDT XR FEEDING TUBE PLCMENT Today 05/30/2025 3:18 PM CDT XR CERV SPINE 3V Today 05/30/2025 2:03 PM CDT HC PHOSPHORUS Routine 05/30/2025 5:01 AM CDT HC MAGNESIUM Routine 05/30/2025 5:01 AM CDT HC BASIC METABOLIC PANEL Routine 05/30/2025 5:01 AM CDT HC CBC AUTO W/AUTO DIFF Routine 05/30/2025 5:01 AM CDT HC MAGNESIUM Routine 05/29/2025 4:11 AM CDT HC BASIC METABOLIC PANEL Routine 05/29/2025 4:11 AM CDT HC CBC AUTO W/AUTO DIFF Routine 05/29/2025 4:11 AM CDT POCT GLUCOSE - DOCKED DEVICE Routine 05/28/2025 11:44 AM CDT HC BASIC METABOLIC PANEL Routine 05/28/2025 5:18 AM CDT HC CBC AUTO W/AUTO DIFF Routine 05/28/2025 5:18 AM CDT HC CULTURE URINE W/COLONY CT Nurse Collected Priority 05/27/2025 4:07 PM CDT HC URINALYSIS AUTO W/MICRO Nurse Collected Priority 05/27/2025 4:07 PM CDT ECG 12-LEAD Routine 05/27/2025 12:38 PM CDT HC MAGNESIUM Routine 05/27/2025 12:28 PM CDT HC COMPREHENSIVE METABOL PANEL Routine 05/27/2025 12:28 PM CDT HC CBC W/O DIFF Routine 05/27/2025 12:28 PM CDT SURG XR FLUOROSCOPY Routine 05/27/2025 11:07 AM CDT FUSION SPINAL ANTERIOR CERVICAL 05/27/2025 8:14 AM CDT SEVERE CERVICAL SPINAL STENOSIS Case Notes NOT ON ANY GLP MEDS PER OFC.SSEP, MEP, EMG- office scheduled with SC on AGEREP CONFIRMED, LP/BLSSEP CONFIRMED, LPJACKSON TABLE WITH FLAT TOPPANTERO MICROSCOPECODMAN CURETTESNEW AGE MEDICAL-REP AWARE TYPE & SCREEN STAT 05/27/2025 7:58 AM CDT OUTSIDE LAB (SCAN ORDER) Routine 04/29/2025 12:00 AM CDT OUTSIDE LAB (SCAN ORDER) Routine 04/29/2025 12:00 AM CDT OUTSIDE LAB (SCAN ORDER) Routine 04/29/2025 12:00 AM CDT IMAGE GENERIC Routine 04/29/2025 12:00 AM CDT ECG GENERIC (SCAN ORDER) Routine 04/05/2025 12:00 AM CDT LIPID PANEL TIMED 09/12/2017 2:21 PM ROOFING FOREMAN from Last 3 Months or Most Recently Relevant to Health Maintenance Results * POCT glucose (06/11/2025 6:04 AM CDT) Only the most recent of9 resultswithin the time period is included. GLUCOSE POC 93 70 - 109 06/11/2025 6:07 AM CDT [facility] 06/11/2025 6:04 AM CDT us Daisy Moulton MD POCT ORDERABLES - DEVICE Gris l Result [facility] [address] [place] [address], [place] [phone] [id number] * (ABNORMAL) COMPREHENSIVE METABOLIC PANEL (06/11/2025 5:17 AM CDT) Only the most recent of5 resultswithin the time period is included. SODIUM S/P/B 139 136 - 145 MMOL/L 06/11/2025 6:17 AM CDT [facility] POTASSIUM S/P/B 3.7 3.5 - 5.1 MMOL/L 06/11/2025 6:17 AM CDT [facility] CHLORIDE S/P/B 104 97 - 115 MMOL/L 06/11/2025 6:17 AM CDT [facility] CO2 29.2 21.0 - 32.0 MMOL/L 06/11/2025 6:17 AM CDT [facility] GLUCOSE 95 74 - 106 MG/DL 06/11/2025 6:17 AM CDT [facility] BUN 15 7 - 18 MG/DL 06/11/2025 6:17 AM CDT [facility] CREATININE S/P/B 0.54(L) 0.55 - 1.02 MG/DL 06/11/2025 6:17 AM CDT [facility] CALCIUM S/P/B 9.6 8.5 - 10.1 MG/DL 06/11/2025 6:17 AM CDT [facility] BILIRUBIN TOTAL S/P/B 0.3 0.2 - 1.0 MG/DL 06/11/2025 6:17 AM CDT [facility] ALKALINE PHOSPHATASE S/P/B 191(H) 55 - 142 U/L 06/11/2025 6:17 AM CDT [facility] AST 12(L) 15 - 37 U/L 06/11/2025 6:17 AM CDT [facility] ALT 12(L) 13 - 56 U/L 06/11/2025 6:17 AM CDT [facility] TOTAL PROTEIN S/P/B 6.3(L) 6.4 - 8.2 G/DL 06/11/2025 6:17 AM CDT [facility] ALBUMIN S/P/B 2.0(L) 3.4 - 5.0 G/DL 06/11/2025 6:17 AM CDT [facility] ANION GAP 5.8 2.0 - 10.0 MMOL/L 06/11/2025 6:17 AM CDT [facility] OSMOLALITY (CALC) 289 MOSM/KG 025 6:17 AM CDT [facility] Comment:REFERENCE RANGE NOT ESTABLISHED GFR ESTIMATE >90 >90 ML/MIN/1. 73 M2 06/11/2025 6:17 AM CDT [facility] GFR NOTES GFR REFERENCE S: 06/11/2025 6:17 AM T [facility] Comment: THE ESTIMATED GFR IS CALCULATED USING THE 2020 CKD-EPI EQUATION. THE FOLLOWING CATEGORIES FOR GRADING RENAL FUNCTION ARE RECOMMENDED BY THE INTERNATIONAL SOCIETY OF NEPHROLOGY (KDIGO 2012 CLINICAL PRACTICE GUIDELINE). G1,NORMAL OR HIGH: >89 ml/min/1.73 m2 G2,MILDLY DECREASED: 60-89 ml/min/1.73 m2 G3A,MILDLY TO MODERATELY DECREASED: 45-59 ml/min/1.73 m2 G3B,MODERATELY TO SEVERELY DECREASED: 30-44 ml/min/1.73 m2 G4,SEVERELY DECREASED: 15-29 ml/min/1.73 m2 G5,KIDNEY FAILURE: <15 ml/min/1.73 m2 06/11/2025 5:17 AM CDT Daisy Moulton MD LABORATORY Final Result [facility] [address] [place] [address], [id number] * (ABNORMAL) CBC W/DIFF AUTOMATED (06/11/2025 5:17 AM CDT) Only the most recent of8 resultswithin the time period is included. WBC 7.81 4.00 - 10.80 x10'3/uL 06/11/2025 5:40 AM CDT [facility] RBC 4.12 4.10 - 5.40 x10'6/uL 06/11/2025 5:40 AM CDT [facility] HGB 11.9(L) 12.0 - 16.0 G/DL 06/11/2025 5:40 AM CDT [facility] HCT 36.5 36.0 - 47.0 % 06/11/2025 5:40 AM CDT [facility] MCV 88.6 78.0 - 100.0 FL 06/11/2025 5:40 AM CDT [facility] MCH 28.9 27.0 - 31.0 PG 06/11/2025 5:40 AM CDT [facility] MCHC 32.6(L) 33.0 - 36.0 G/DL 06/11/2025 5:40 AM CDT [facility] RDW 13.7 11.5 - 14.5 % 06/11/2025 5:40 AM CDT [facility] PLT 378(H) 150 - 350 x10'3/uL 06/11/2025 5:40 AM CDT [facility] MPV 9.7 7.4 - 10.4 FL 06/11/2025 5:40 AM CDT [facility] DIFFERENTIAL TYPE AUTOMATED DIFFERENTIAL 06/11/2025 5:40 AM CDT [facility] SEG NEUTROPHILS 57.5 % 5:40 AM CDT [facility] LYMPHOCYTES 30.2 % 06/11/2025 5:40 AM CDT [facility] MONOCYTES 6.3 % 06/11/2025 5:40 AM CDT [facility] EOSINOPHILS 5.2 % 06/11/2025 5:40 AM CDT [facility] BASOPHILS 0.4 % 06/11/2025 5:40 AM CDT [facility] IMMATURE GRANS % 0.4 % 06/11/20 5:40 AM CDT [facility] ABS. NEUTROPHILS 4.49 1.60 - 8.30 x10'3/uL 06/11/2025 5:40 AM CDT [facility] ABS. LYMPHOCYTES 2.36 0.80 - 4.70 x10'3/uL 06/11/2025 5:40 AM CDT [facility] ABS. MONOCYTES 0.49 0.00 - 1.50 x10'3/uL 06/11/2025 5:40 AM CDT [facility] ABS. EOSINOPHILS 0.41(H) 0.00 - 0.40 x10'3/uL 06/11/2025 5:40 AM CDT [facility] ABS. BASOPHILS 0.03 0.00 - 0.20 x10'3/uL 06/11/2025 5:40 AM CDT [facility] ABS. IMMATURE GRANULOCYTES 0.03 0.00 - 0.03 x10'3/uL 06/11/2025 5:40 AM CDT [facility] ABS. NUCLEATED RBC'S 0.00 0.00 - 0.01 x10'3/uL 06/11/2025 5:40 AM CDT [facility] NRBC % 0.0 % 06/11/2025 5:40 AM CDT [facility] 06/11/2025 5:17 AM CDT Daisy Moulton MD LABORATORY Final Result [facility] [address] [place] [address], [id number] * PHOSPHORUS, INORGANIC PHOSPHATE (06/11/2025 5:17 AM CDT) Only the most recent of3 resultswithin the time period is included. PHOSPHORUS 3.5 2.5 - 4.9 MG/DL 06/11/2025 6:17 AM CDT [facility] 06/11/2025 5:17 AM CDT us Daisy Moulton MD LABORATORY Final Result [facility] [address] [place] [address], [place] [phone] [id number] * MAGNESIUM (06/11/2025 5:17 AM CDT) Only the most recent of6 resultswithin the time period is included. MAGNESIUM 1.8 1.6 - 2.6 MG/DL 06/11/2025 6:17 AM CDT [facility] 06/11/2025 5:17 AM CDT Daisy Moulton MD LABORATORY Final Result Performing Organization Address [facility] Co de Phone Number [facility] [address] [place] [address], [place] [phone] * CT CERV SPINE WO CON (06/09/2025 2:00 PM CDT) Anatomical Region Laterality Modality Spine Computed Tomogra phy 06/09/2025 3:15 PM CDT Impressions 06/09/2025 3:26 PM CDT IMPRESSION: 1. Postsurgical changes after C4-C7 ACDF, as detailed. Ill-defined prevertebral/retropharyngeal soft tissue edema and fluid overlying the surgical bed, likely postoperative. Some flattening of the posterior oropharynx/hypopharynx. Mucosal edema noted along the posterior oropharynx/hypopharynx and aryepiglottic folds. 2. Multilevel degenerative changes as detailed Ordered By: MICHELE HANSEN Interpreted By: Alfa Lara MD, 06/09/2025 3:15 PM Narrative 06/09/2025 3:26 PM CDT [facility] [address] DATE: 06/09/2025 1:53 PM EXAMINATION: CT Cervical Spine without contrast CLINICAL HISTORY: Difficulty swallowing. COMPARISON: Outside CT 03/21/2025. Postoperative MRI 06/08/2025 TECHNIQUE: CT examination of the cervical spine was performed without contrast. Axial and multiplanar reformatted images were obtained. A dose lowering technique was used for this procedure, which may include, but is not limited to, dose reduction technique, automated exposure control, the use of iterative reconstruction, and ALARA (As Low As Reasonably Achievable) / Image Gently techniques. FINDINGS: Again seen are post surgical changes of multilevel ACDF from C4 through C7. When compared with the preoperative CT examination, there appears to have been partial osteotomy/resection of prominent anterior osteophytes at C5-C7. Some residual osteophytes are present along the anterior vertebral body margins, with the fixation plate juxtaposed to subtle osteophytic remnants. The anterior fixation hardware appears otherwise intact. Ill-defined soft tissue edema noted along the left neck, presumably along the operative approach. Some prevertebral/retropharyngeal soft tissue edema and/or fluid noted, likely also postoperative. Some flattening of the posterior oropharynx/hypopharynx. Mucosal edema suggested along the posterior oropharynx, hypopharynx, and aryepiglottic folds. There is stable anterolisthesis of C4 on C5 and C7 on T1. Straightening of the cervical lordosis. Otherwise the cervical vertebral alignment, vertebral body heights, and facet alignment are maintained. Multilevel degenerative changes are evident in the cervical spine with disc degeneration, endplate/uncovertebral osteophytes, and facet hypertrophy noted. Greatest loss of disc height with intradiscal vacuum cleft phenomenon and reactive endplate sclerosis at C7-T1 and T1-T2. The remainder of the neck soft tissues reveal atherosclerotic vascular calcifications. C2-C3: Uncovertebral osteophytes. Right worse than left facet arthropathy. Flattening of the thecal sac. Moderate to severe right foraminal narrowing. C3-C4: Disc bulge. Uncovertebral osteophytes. Ligamentum flavum thickening. Facet hypertrophy. Associated canal stenosis with partial effacement of the thecal sac and encroachment of the cord. Moderate to severe right and mild left foraminal narrowing. C4-C5: Post surgical changes. Posterior endplate and uncovertebral osteophytes. Facet hypertrophy. Associated canal stenosis with partial effacement of the thecal sac and encroachment of the cord. Moderate to severe right and mild to moderate left foraminal narrowing. C5-C6: Post surgical changes. Posterior endplate and uncovertebral osteophytes. Facet hypertrophy. Associated canal stenosis with partial effacement of the thecal sac and encroachment of the cord. Severe left and moderate right foraminal narrowing. C6-C7: Post surgical changes. Posterior endplate and uncovertebral osteophytes. Facet hypertrophy. Associated canal stenosis with partial effacement of the thecal sac and encroachment of the cord. Severe left and moderate to severe right foraminal narrowing. C7-T1: Anterolisthesis. Endplate osteophytes. Facet hypertrophy. Flattening of the thecal sac. Severe left foraminal narrowing. Procedure Note Alfa Lraa MD - 06/09/[address] [id number] DATE: 06/09/2025 1:53 PM EXAMINATION: CT Cervical Spine without contrast CLINICAL HISTORY: Difficulty swallowing. COMPARISON: Outside CT 03/21/2025. Postoperative MRI 06/08/2025 TECHNIQUE: CT examination of the cervical spine was performed withoutcontrast. Axial and multiplanar reformatted images were obtained. A dose lowering technique was used for this procedure, which may include,but is not limited to, dose reduction technique, automated exposurecontrol, the use of iterative reconstruction, and ALARA (As Low AsReasonably Achievable) / Image Gently techniques. FINDINGS: Again seen are post surgical changes of multilevel ACDF from C4 throughC7. When compared with the preoperative CT examination, there appears tohave been partial osteotomy/resection of prominent anterior osteophytes atC5-C7. Some residual osteophytes are present along the anterior vertebralbody margins, with the fixation plate juxtaposed to subtle osteophyticremnants. The anterior fixation hardware appears otherwise intact.Ill-defined soft tissue edema noted along the left neck, presumably alongthe operative approach. Some prevertebral/retropharyngeal soft tissueedema and/or fluid noted, likely also postoperative. Some flattening ofthe posterior oropharynx/hypopharynx. Mucosal edema suggested along theposterior oropharynx, hypopharynx, and aryepiglottic folds. There is stable anterolisthesis of C4 on C5 and C7 on T1. Straightening ofthe cervical lordosis. Otherwise the cervical vertebral alignment,vertebral body heights, and facet alignment are maintained. Multileveldegenerative changes are evident in the cervical spine with discdegeneration, endplate/uncovertebral osteophytes, and facet hypertrophynoted. Greatest loss of disc height with intradiscal vacuum cleftphenomenon and reactive endplate sclerosis at C7-T1 and T1-T2. Theremainder of the neck soft tissues reveal atherosclerotic vascularcalcifications. C2-C3: Uncovertebral osteophytes. Right worse than left facet arthropathy.Flattening of the thecal sac. Moderate to severe right foraminalnarrowing. C3-C4: Disc bulge. Uncovertebral osteophytes. Ligamentum flavumthickening. Facet hypertrophy. Associated canal stenosis with partialeffacement of the thecal sac and encroachment of the cord. Moderate tosevere right and mild left foraminal narrowing. C4-C5: Post surgical changes. Posterior endplate and uncovertebralosteophytes. Facet hypertrophy. Associated canal stenosis with partialeffacement of the thecal sac and encroachment of the cord. Moderate tosevere right and mild to moderate left foraminal narrowing. C5-C6: Post surgical changes. Posterior endplate and uncovertebralosteophytes. Facet hypertrophy. Associated canal stenosis with partialeffacement of the thecal sac and encroachment of the cord. Severe left andmoderate right foraminal narrowing. C6-C7: Post surgical changes. Posterior endplate and uncovertebralosteophytes. Facet hypertrophy. Associated canal stenosis with partialeffacement of the thecal sac and encroachment of the cord. Severe left andmoderate to severe right foraminal narrowing. C7-T1: Anterolisthesis. Endplate osteophytes. Facet hypertrophy.Flattening of the thecal sac. Severe left foraminal narrowing. IMPRESSION: 1. Postsurgical changes after C4-C7 ACDF, as detailed. Ill-definedprevertebral/retropharyngeal soft tissue edema and fluid overlying thesurgical bed, likely postoperative. Some flattening of the posteriororopharynx/hypopharynx. Mucosal edema noted along the posteriororopharynx/hypopharynx and aryepiglottic folds. 2. Multilevel degenerative changes as detailed Ordered By: MICHELE HANSEN Interpreted By: Alfa Lara MD, 06/09/2025 3:15 PM us Michele Hansen MD CT Final Result * IR PERC MEHUL CATH PLCMNT (06/08/2025 12:35 PM CDT) Anatomical Region Laterality Modality Abdomen Interventional R adiology 06/08/2025 12:1 8 PM CDT Impressions 06/08/2025 4:48 PM CDT Impression: Successful fluoroscopically guided percutaneous gastrostomy tube placement. Tube may be flushed intermittently with saline and/or placed to intermittent gravity drainage. If there are no apparent complications, use of the gastrostomy tube may begin the morning following the procedure. Ordered By: DAISY MOULTON Interpreted By: Sulaiman Christianson MD, 06/08/2025 12:18 PM Narrative 06/08/2025 4:48 PM CDT [address] [address] Procedure: Fluoroscopically guided percutaneous gastrostomy Pre op diagnosis/indication: Dysphagia after cervical fusion Post Op Diagnosis: same Radiologist: Sammy Anesthesia: Local - 1% buffered Lidocaine Conscious sedation: Administered and monitored by a qualified interventional radiology nurse under supervision of the interventional radiologist. There was continuous monitoring of vital signs including pulse oximetry, end-tidal CO2, and EKG. Total intraservice or vxri-oy-dxfh sedation time: 9 minutes.. Technique : The patient was given barium via nasogastric tube on the day prior to the procedure to opacify the colon. Preliminary ultrasound was performed and the left liver margin was marked. Permanent ultrasound image was recorded. The epigastric region was prepped and draped in sterile fashion. Timeout was performed. The patient was given 1 mg of glucagon IV. Following this the stomach was insufflated with air via the indwelling NG tube. Under fluoroscopy suitable site was marked over the stomach clear of the liver and colon. Following the administration local anesthetic, 3 gastric anchor retention sutures were placed under fluoroscopic guidance, anchoring the anterior gastric wall to the anterior abdominal wall. At the time of placement of each suture, intragastric location was confirmed with aspiration of air and injection of contrast. Between the anchor sutures additional local anesthetic was administered. A 19 gauge needle was then advanced under fluoroscopic guidance into the stomach. Intragastric location was confirmed by aspiration of air followed by injection of contrast. An Amplatz wire was then advanced into the stomach. The tract was dilated and peel-away sheath placed through which a 18 O[place]i balloon-tip gastrostomy tube was placed without difficulty. The balloon was inflated with 18 cc of very dilute contrast and the tube was secured in place. Intragastric location was confirmed with contrast injection. Permanent fluoroscopic images were recorded. Sterile dressing was applied. Fluoroscopy: 1.6 min; 22 mGy (Ka.r) Complications: none Estimated Blood Loss: <20 ml Specimens removed: none Procedure Note Sulaiman Christianson MD - 06/08/2025 [place] [address] Procedure: Fluoroscopically guided percutaneous gastrostomy Pre op diagnosis/indication: Dysphagia after cervical fusion Post Op Diagnosis: same Radiologist: Sammy Anesthesia: Local - 1% buffered Lidocaine Conscious sedation: Administered and monitored by a qualifiedinterventional radiology nurse under supervision of the interventionalradiologist. There was continuous monitoring of vital signs includingpulse oximetry, end-tidal CO2, and EKG. Total intraservice or vncl-sy-lvheogqlqdsp time: 9 minutes.. Technique : The patient was given barium via nasogastric tube on the day prior to theprocedure to opacify the colon. Preliminary ultrasound was performed and the left liver margin was marked.Permanent ultrasound image was recorded. The epigastric region was prepped and draped in sterile fashion. Timeout was performed. The patient was given 1 mg of glucagon IV. Following this the stomach wasinsufflated with air via the indwelling NG tube. Under fluoroscopysuitable site was marked over the stomach clear of the liver and colon.Following the administration local anesthetic, 3 gastric anchor retentionsutures were placed under fluoroscopic guidance, anchoring the anteriorgastric wall to the anterior abdominal wall. At the time of placement ofeach suture, intragastric location was confirmed with aspiration of airand injection of contrast. Between the anchor sutures additional localanesthetic was administered. A 19 gauge needle was then advanced underfluoroscopic guidance into the stomach. Intragastric location wasconfirmed by aspiration of air followed by injection of contrast. AnAmplatz wire was then advanced into the stomach. The tract was dilated andpeel-away sheath placed through which a 18 Omani balloon-tip gastrostomytube was placed without difficulty. The balloon was inflated with 18 cc ofvery dilute contrast and the tube was secured in place. Intragastriclocation was confirmed with contrast injection. Permanent fluoroscopicimages were recorded. Sterile dressing was applied. Fluoroscopy: 1.6 min; 22 mGy (Ka.r) Complications: none Estimated Blood Loss: <20 ml Specimens removed: none Impression: Successful fluoroscopically guided percutaneous gastrostomytube placement. Tube may be flushed intermittently with saline and/orplaced to intermittent gravity drainage. If there are no apparentcomplications, use of the gastrostomy tube may begin the morning followingthe procedure. Ordered By: DAISY MOULTON Interpreted By: Sulaiman Christianson MD, 06/08/2025 12:18 PM Daisy Moulton MD INTERVENTIONAL RADIOLOGY Gris l Result * XR ABD KUB (06/08/2025 8:24 AM CDT) Anatomical Region Laterality Modality Abdomen Radiographic Leticia ging 06/08/2025 10:3 5 AM CDT Impressions 06/08/2025 10:39 AM CDT IMPRESSION: 1. Moderate volume of barium in the ascending, transverse, and descending colon. 2. Nonobstructive bowel gas pattern with moderate volume of stool throughout the colon. 3. Posterior rods and screws extending from T10 through S1 with lucency along the right S1 screw raising concern for loosening as above. Referred By: Interpreted By: Estrada Marcelino DO, 06/08/2025 10:35 AM Narrative 06/08/2025 10:39 AM CDT [facility] [address], [place] [address] Examination: XR ABD KUB Exam time: 06/08/2025 8:20 AM Clinical history: Examination is ordered to assess for barium in the bowel. Comparison: None. Technique: AP radiographs of the abdomen and pelvis obtained portably. Findings: There is a nonobstructive bowel gas pattern with a moderate volume of stool throughout the colon. There is a moderate volume of barium in the ascending, transverse, and descending colon. An enteric tube is present with the distal tip not definitively identified due to overlying orthopedic hardware. The bones are diffusely demineralized. Degenerative arthritis affects the visualized lower thoracic and lumbar spine. An interbody fusion device is present at L5-S1. There are posterior rods and screws extending from T10 through S1. There is lucency along the right S1 screw measuring up to 3 mm in diameter raising concern for loosening. Mild osteoarthritis affects the sacroiliac joints. Orthopedic components of a left total hip arthroplasty are incompletely visualized situated in gross anatomic alignment. Procedure Note Estrada Marcelino, - 06/08/2025 [facility] [address], [place] [address] Examination: XR ABD KUB Exam time: 06/08/2025 8:20 AM Clinical history: Examination is ordered to assess for barium in thebowel. Comparison: None. Technique: AP radiographs of the abdomen and pelvis obtained portably. Findings: There is a nonobstructive bowel gas pattern with a moderate volume ofstool throughout the colon. There is a moderate volume of barium in theascending, transverse, and descending colon. An enteric tube is presentwith the distal tip not definitively identified due to overlyingorthopedic hardware. The bones are diffusely demineralized. Degenerativearthritis affects the visualized lower thoracic and lumbar spine. Aninterbody fusion device is present at L5-S1. There are posterior rods andscrews extending from T10 through S1. There is lucency along the right [id number] measuring up to 3 mm in diameter raising concern for loosening.Mild osteoarthritis affects the sacroiliac joints. Orthopedic componentsof a left total hip arthroplasty are incompletely visualized situated ingross anatomic alignment. IMPRESSION: 1. Moderate volume of barium in the ascending, transverse, and descendingcolon. 2. Nonobstructive bowel gas pattern with moderate volume of stoolthroughout the colon. 3. Posterior rods and screws extending from T10 through S1 with lucencyalong the right S1 screw raising concern for loosening as above. Referred By: Interpreted By: Estrada Marcelino DO, 06/08/2025 10:35 AM us Sulaiman Christianson MD GENERAL IMAGING Final Result * (ABNORMAL) PROTIME/INR, VENOUS (06/08/2025 4:59 AM CDT) PROTIME 13.3(H) 9.4 - 12.5 SEC 06/08/2025 5:48 AM CDT [facility] INR 1.1 0.8 - 1.1 06/08/2025 5:48 AM CDT [facility] 06/08/2025 4:59 AM CDT us Maikol Parikh MD LABORATORY Final Resu lt [facility] [address] [place] [address], [phone] * MRI CERV SPINE WO CON (06/08/2025 3:16 AM CDT) Anatomical Region Laterality Modality Spine Magnetic Resonan ce 06/08/2025 7:10 AM CDT Impressions 06/08/2025 7:30 AM CDT IMPRESSION: 1. Status post anterior plate screw fixation with interbody fusion at C4-C7. 2. Nonspecific mild edema type signal within the bilateral paraspinal soft tissues at C4-C7 compatible postoperative changes. Trace amount or retropharyngeal fluid at C2 and C3. No discrete encapsulated fluid collection. 3. Severe neuroforaminal stenosis on the right at C2/C3, C4/C5, C6/C7 and C7/T1. Moderate neuroforaminal stenosis on the right at C1/C2. 4. Severe neuroforaminal stenosis on the left and C5/C6 and C6/C7 and C7/T1. Moderate neural foraminal stenosis on the left at C1/C2 and C3/C4. 5. Mild central canal stenosis at C3-T1 due to developmentally short pedicles and mild multilevel degenerative changes. 6. Grade 1 anterolisthesis at C7/T1 measuring 3 mm. Referred By: Interpreted By: Ritesh Marks MD, 06/08/2025 7:10 AM Narrative 06/08/2025 7:30 AM CDT [address] [address] EXAMINATION: MRI of the cervical spine without contrast 06/08/2025 INDICATION: Weakness TECHNIQUE: Multiplanar multi sequence MR imaging of the cervical spine was performed without intravenous contrast. COMPARISON: Cervical radiographs 05/30/2025 FINDINGS:Cervical spine is in anatomic alignment. There is artifact from anterior plate screw fixation hardware at C4-C7. Bone marrow signal is within normal limits. No acute fracture or dislocation. There is grade 1 anterolisthesis at C7/T1 measuring 3 mm. No ligamentous discontinuity or signal abnormality. There is mild to increased STIR signal within the bilateral paraspinal soft tissues at the C4-C7. No paraspinal mass or discrete encapsulated fluid collection. There is a trace amount of a retropharyngeal fluid in the C2 and C3. Expected flow voids are noted within the carotid and vertebral arteries. Moderate nonspecific patchy increased T2 signal noted within the trey, compatible with chronic small vessel ischemic changes.. The cervical spinal cord is unremarkable in course caliber contour and signal. No stenosis at the foramen magnum. The pedicles are developmentally short producing a narrow central canal and neural foramina at baseline. C1/C2: Joint space narrowing and osteophytosis causing moderate bilateral neural foraminal stenosis C2/C3: Disc space narrowing and facet arthropathy causing severe right neural foraminal stenosis. C3/C4: Facet arthropathy causing mild central canal stenosis severe right neural foraminal stenosis and moderate left neural foraminal stenosis. The thecal sac measures 7 mm. C4/C5: Uncovertebral facet arthropathy causing mild central canal stenosis and severe right neural foraminal stenosis. The thecal sac measures 7 mm. C5/C6: Disc space narrowing and facet arthropathy causing mild central canal stenosis and severe left neural foraminal stenosis. The thecal sac measures 8 mm. C6/C7: Small right paracentral disc/osteophyte complex, uncovertebral arthropathy and facet arthropathy causing mild central canal stenosis and severe bilateral neural foraminal stenosis. The thecal sac measures 7 mm. C7/T1: Disc space narrowing with 3 mm anterolisthesis, uncovertebral arthropathy and facet arthropathy causing mild central canal stenosis and severe left neural foraminal stenosis. The thecal sac measures 7 mm. T1/T2: Disc space narrowing with facet arthropathy and bilateral foraminal disc/osteophyte complexes moderate bilateral foraminal stenosis. T2/T3: Disc space narrowing and facet arthropathy causing mild bilateral foraminal stenosis. Procedure Note Ritesh Marks MD - 06/08/[address] [address] EXAMINATION: MRI of the cervical spine without contrast 06/08/2025 INDICATION: Weakness TECHNIQUE: Multiplanar multi sequence MR imaging of the cervical spine wasperformed without intravenous contrast. COMPARISON: Cervical radiographs 05/30/2025 FINDINGS:Cervical spine is in anatomic alignment. There is artifact fromanterior plate screw fixation hardware at C4-C7. Bone marrow signal iswithin normal limits. No acute fracture or dislocation. There is grade 1anterolisthesis at C7/T1 measuring 3 mm. No ligamentous discontinuity orsignal abnormality. There is mild to increased STIR signal within thebilateral paraspinal soft tissues at the C4-C7. No paraspinal mass ordiscrete encapsulated fluid collection. There is a trace amount of aretropharyngeal fluid in the C2 and C3. Expected flow voids are notedwithin the carotid and vertebral arteries. Moderate nonspecific patchy increased T2 signal noted within the trey,compatible with chronic small vessel ischemic changes.. The cervicalspinal cord is unremarkable in course caliber contour and signal. No stenosis at the foramen magnum. The pedicles are developmentally shortproducing a narrow central canal and neural foramina at baseline. C1/C2: Joint space narrowing and osteophytosis causing moderate bilateralneural foraminal stenosis C2/C3: Disc space narrowing and facet arthropathy causing severe rightneural foraminal stenosis. C3/C4: Facet arthropathy causing mild central canal stenosis severe rightneural foraminal stenosis and moderate left neural foraminal stenosis.The thecal sac measures 7 mm. C4/C5: Uncovertebral facet arthropathy causing mild central canal stenosisand severe right neural foraminal stenosis. The thecal sac measures 7mm. C5/C6: Disc space narrowing and facet arthropathy causing mild centralcanal stenosis and severe left neural foraminal stenosis. The thecal sacmeasures 8 mm. C6/C7: Small right paracentral disc/osteophyte complex, uncovertebralarthropathy and facet arthropathy causing mild central canal stenosis andsevere bilateral neural foraminal stenosis. The thecal sac measures 7mm. C7/T1: Disc space narrowing with 3 mm anterolisthesis, uncovertebralarthropathy and facet arthropathy causing mild central canal stenosis andsevere left neural foraminal stenosis. The thecal sac measures 7 mm. T1/T2: Disc space narrowing with facet arthropathy and bilateral foraminaldisc/osteophyte complexes moderate bilateral foraminal stenosis. T2/T3: Disc space narrowing and facet arthropathy causing mild bilateralforaminal stenosis. IMPRESSION: 1. Status post anterior plate screw fixation with interbody fusion atC4-C7. 2. Nonspecific mild edema type signal within the bilateral paraspinalsoft tissues at C4-C7 compatible postoperative changes. Trace amount orretropharyngeal fluid at C2 and C3. No discrete encapsulated fluidcollection. 3. Severe neuroforaminal stenosis on the right at C2/C3, C4/C5, C6/C7 andC7/T1. Moderate neuroforaminal stenosis on the right at C1/C2. 4. Severe neuroforaminal stenosis on the left and C5/C6 and C6/C7 andC7/T1. Moderate neural foraminal stenosis on the left at C1/C2 andC3/C4. 5. Mild central canal stenosis at C3-T1 due to developmentally shortpedicles and mild multilevel degenerative changes. 6. Grade 1 anterolisthesis at C7/T1 measuring 3 mm. Referred By: Interpreted By: Ritesh Marks MD, 06/08/2025 7:10 AM us Bo Castro MD MRI Final Result * (ABNORMAL) BASIC METABOLIC PANEL (06/07/2025 12:38 PM CDT) Only the most recent of7 resultswithin the time period is included. SODIUM S/P/B 136 136 - 145 MMOL/L 06/07/2025 1:06 PM CDT [facility] POTASSIUM S/P/B 4.0 3.5 - 5.1 MMOL/L 06/07/2025 1:06 PM CDT [facility] CHLORIDE S/P/B 102 97 - 115 MMOL/L 06/07/2025 1:06 PM CDT [facility] CO2 29.2 21.0 - 32.0 MMOL/L 06/07/2025 1:06 PM CDT [facility] GLUCOSE 114(H) 74 - 106 MG/DL 06/07/2025 1:06 PM CDT [facility] BUN 21(H) 7 - 18 MG/DL 06/07/2025 1:06 PM CDT [facility] CREATININE S/P/B 0.63 0.55 - 1.02 MG/DL 06/07/2025 1:06 PM CDT [facility] CALCIUM S/P/B 9.5 8.5 - 10.1 MG/DL 06/07/2025 1:06 PM CDT [facility] ANION GAP 4.8 2.0 - 10.0 MMOL/L 06/07/2025 1:06 PM CDT [facility] OSMOLALITY (CALC) 286 MOSM/KG 025 1:06 PM T [facility] Comment:REFERENCE RANGE NOT ESTABLISHED GFR ESTIMATE >90 >90 ML/MIN/1. 73 M2 06/07/2025 1:06 PM CDT [facility] GFR NOTES GFR REFERENCE S: 06/07/2025 1:06 PM CDT [facility] Comment: THE ESTIMATED GFR IS CALCULATED USING THE 2020 CKD-EPI EQUATION. THE FOLLOWING CATEGORIES FOR GRADING RENAL FUNCTION ARE RECOMMENDED BY THE [employer] OF NEPHROLOGY (KDIGO 2012 CLINICAL PRACTICE GUIDELINE). G1,NORMAL OR HIGH: >89 ml/min/1.73 m2 G2,MILDLY DECREASED: 60-89 ml/min/1.73 m2 G3A,MILDLY TO MODERATELY DECREASED: 45-59 ml/min/1.73 m2 G3B,MODERATELY TO SEVERELY DECREASED: 30-44 ml/min/1.73 m2 G4,SEVERELY DECREASED: 15-29 ml/min/1.73 m2 G5,KIDNEY FAILURE: <15 ml/min/1.73 m2 06/07/2025 12:3 8 PM CDT Daisy Moulton MD LABORATORY Final Result Performing Organization Address City/State/[facility] [place] [address], [phone] * XR SPEECH SWALLOW SJS ONLY (06/07/2025 9:33 AM CDT) Anatomical Region Laterality Modality NA Fluoroscopy 06/07/2025 9:50 AM CDT Impressions 06/07/2025 9:54 AM CDT IMPRESSION: CANCELED EXAM, EXPLAINED ABOVE. Referred By: Interpreted By: Wm Chow MD, 06/07/2025 9:50 AM Narrative 06/07/2025 9:54 AM CDT [place] [address] EXAM: XR SPEECH SWALLOW SJS ONLY INDICATION: Dysphagia status post anterior cervical fusion. TECHNIQUE/FINDINGS: Study was initiated at the direction of the speech therapist. The patient has an NG tube in place. This interferes with the swallowing process, particularly with the impaction of the epiglottis. This prevents an accurate evaluation of the swallowing process and the results will be clinically unreliable. Until the patient's NG tube is removed, a dedicated swallowing study is not feasible. Exam is canceled. Initial swallowing with the nectar consistency did demonstrate aspiration. Whether this is secondary to NG tube or underlying pathology including prevertebral soft tissue swelling is unclear. Total fluoroscopic exposure time was 0.5 minutes. Total exposure with 1.8 mGy. Procedure Note Wm Chow MD - 06/07/[address] [address] EXAM: XR SPEECH SWALLOW SJS ONLY INDICATION: Dysphagia status post anterior cervical fusion. TECHNIQUE/FINDINGS: Study was initiated at the direction of the speechtherapist. The patient has an NG tube in place. This interferes with theswallowing process, particularly with the impaction of the epiglottis.This prevents an accurate evaluation of the swallowing process and theresults will be clinically unreliable. Until the patient's NG tube isremoved, a dedicated swallowing study is not feasible. Exam iscanceled. Initial swallowing with the nectar consistency did demonstrate aspiration.Whether this is secondary to NG tube or underlying pathology includingprevertebral soft tissue swelling is unclear. Total fluoroscopic exposure time was 0.5 minutes. Total exposure with 1.8mGy. IMPRESSION: CANCELED EXAM, EXPLAINED ABOVE. Referred By: Interpreted By: Wm Chow MD, 06/07/2025 9:50 AM Gerald Coppola MD FLUOROSCOPY Final Result * MRI BRAIN WO CON (06/03/2025 11:09 PM CDT) Anatomical Region Laterality Modality Head Magnetic Resonan ce 06/04/2025 3:29 AM CDT Impressions 06/04/2025 3:30 AM CDT IMPRESSION: ===== 1. No acute intracranial abnormality. 2. Atrophy and small vessel ischemic disease. Referred By: Interpreted By: Fahrat Pool MD, 06/04/2025 3:29 AM Narrative 06/04/2025 3:30 AM CDT [facility] [address] EXAMINATION: MRI brain without contrast. EXAM DATE/TIME: 06/03/2025 9:53 PM REASON FOR EXAM: ORDERING PROVIDER COMMENT: dementia/gait apraxia Worsening gait, memory issues COMPARISON: None TECHNIQUE: Multiplanar multisequence MRI of the brain was obtained without the use of IV contrast agent. FINDINGS: No abnormal increased signal on diffusion-weighted imaging to suggest acute infarct. The ventricles are enlarged with prominent bilateral. Period no evidence of mass, mass effect, or midline shift. Periventricular FLAIR signal abnormality noted. Bilateral lens extractions with otherwise unremarkable orbital contents. Paranasal sinuses clear. Mastoid air cells are clear. Major intracranial intravascular arterial flow voids at the skull base are intact. Visualized portion of parotid glands unremarkable. No acute intracranial hemorrhage. Motion artifact on lateral view limits evaluation of cervical cord. Sella and suprasellar regions grossly unremarkable. ===== Procedure Note Farhat Pool MD - 06/04/[address] [address] EXAMINATION: MRI brain without contrast. EXAM DATE/TIME: 06/03/2025 9:53 PM REASON FOR EXAM: ORDERING PROVIDER COMMENT: dementia/gait apraxia Worsening gait, memory issues COMPARISON: None TECHNIQUE: Multiplanar multisequence MRI of the brain was obtained withoutthe use of IV contrast agent. FINDINGS: No abnormal increased signal on diffusion-weighted imaging tosuggest acute infarct. The ventricles are enlarged with prominentbilateral. Period no evidence of mass, mass effect, or midline shift. PeriventricularFLAIR signal abnormality noted. Bilateral lens extractions with otherwiseunremarkable orbital contents. Paranasal sinuses clear. Mastoid air cellsare clear. Major intracranial intravascular arterial flow voids at theskull base are intact. Visualized portion of parotid glands unremarkable.No acute intracranial hemorrhage. Motion artifact on lateral view limitsevaluation of cervical cord. Sella and suprasellar regions grosslyunremarkable. ===== IMPRESSION: ===== 1. No acute intracranial abnormality. 2. Atrophy and small vessel ischemic disease. Referred By: Interpreted By: Farhat Pool MD, 06/04/2025 3:29 AM us Elia Silveira MD MRI Final Result * VITAMIN B-12 (06/03/2025 1:48 PM CDT) Pathologist [facility] VITAMIN B12 S/P/B 443 193 - 986 PG/ML 06/03/2025 3:49 PM CDT [facility] 06/03/2025 1:48 PM CDT us Elia Silveira MD LABORATORY Final Result [facility] [address] [place] [address], [id number] * (ABNORMAL) CBC, AUTO, NO DIFF (06/03/2025 5:00 AM CDT) Only the most recent of3 resultswithin the time period is included. [facility] WBC 11.31(H) 4.00 - 10.80 x10'3/uL 06/03/2025 5:57 AM CDT [facility] RBC 4.47 4.10 - 5.40 x10'6/uL 06/03/2025 5:57 AM CDT [facility] HGB 13.1 12.0 - 16.0 G/DL 06/03/2025 5:57 AM CDT [facility] HCT 40.5 36.0 - 47.0 % 06/03/2025 5:57 AM CDT [facility] MCV 90.6 78.0 - 100.0 FL 06/03/2025 5:57 AM CDT [facility] MCH 29.3 27.0 - 31.0 PG 06/03/2025 5:57 AM CDT [facility] MCHC 32.3(L) 33.0 - 36.0 G/DL 06/03/2025 5:57 AM CDT [facility] RDW 14.0 11.5 - 14.5 % 06/03/2025 5:57 AM CDT [facility] PLT 317 150 - 350 x10'3/uL 06/03/2025 5:57 AM CDT [facility] MPV 11.1(H) 7.4 - 10.4 FL 06/03/2025 5:57 AM CDT [facility] 06/03/2025 5:00 AM CDT Gerald Coppola MD LABORATORY Final Result [facility] [address] [place] [address], [id number] * XR FEEDING TUBE PLCMENT (05/30/2025 3:18 PM CDT) Anatomical Region Laterality Modality NA Fluoroscopy 05/30/2025 4:05 PM CDT Impressions 05/30/2025 4:18 PM CDT IMPRESSION: Successful placement of nasoenteric feeding tube into the duodenum. Dictated By: Lucrecia Reddy MD on 05/30/2025 4:05 PM The attending radiologist, Dr. Senia Grover MD, was available during all critical portions of the procedure, has reviewed the image(s) and agrees with the content of this report. Ordered By: RONIT VILLALOBOS Interpreted By: Lucrecia Reddy MD, 05/30/2025 4:05 PM Narrative 05/30/2025 4:18 PM CDT [address] [address] Examination: XR FEEDING TUBE PLCMENT Exam time: 05/30/2025 2:37 PM Clinical history: Dysphagia Comparison: None Technique & Findings: The procedure, as well as the risks and benefits, was explained to the patient's family in detail. The questions and concerns were addressed and informed consent was obtained prior to the patient entering the fluoroscopy suite. Fluoroscopic guidance was utilized during placement of a nasoenteric feeding tube. The nasoenteric feeding tube coated in viscous lidocaine gel was passed through the patient's right nare and into the stomach. A guidewire, injected air, and injected water were utilized to facilitate advancement of the tube into the second portion of the duodenum. An interprocedural image was obtained to document placement. A nasal bridle was placed. The tube was then flushed with water to ensure patency. There were no immediate postprocedural complications, and the patient left the department in stable condition. Total fluoroscopic time: 2.3 minute(s). Reference air kerma: 31 mGy. Total number of images saved: 1. Procedure Note Senia Grover MD - 05/30/[address] [address] Examination: XR FEEDING TUBE PLCMENT Exam time: 05/30/2025 2:37 PM Clinical history: Dysphagia Comparison: None Technique & Findings: The procedure, as well as the risks and benefits, was explained to thepatient's family in detail. The questions and concerns were addressed andinformed consent was obtained prior to the patient entering thefluoroscopy suite. Fluoroscopic guidance was utilized during placement of a nasoentericfeeding tube. The nasoenteric feeding tube coated in viscous lidocaine gelwas passed through the patient's right nare and into the stomach. Aguidewire, injected air, and injected water were utilized to facilitateadvancement of the tube into the second portion of the duodenum. Aninterprocedural image was obtained to document placement. A nasal bridlewas placed. The tube was then flushed with water to ensure patency. Therewere no immediate postprocedural complications, [facility]. Total fluoroscopic time: 2.3 minute(s). Reference air kerma: 31 mGy. Totalnumber of images saved: 1. IMPRESSION: Successful placement of nasoenteric feeding tube into the duodenum. Dictated By: Lucrecia Reddy MD on 05/30/2025 4:05 PM The attending radiologist, Dr. Senia Grover MD, was available during allcritical portions of the procedure, has reviewed the image(s) and agreeswith the content of this report. Ordered By: RONIT VILLALOBOS Interpreted By: Lucrecia Reddy MD, 05/30/2025 4:05 PM Ronit Villalobos MD FLUOROSCOPY Final Result * XR CERV SPINE 3V (05/30/2025 2:03 PM CDT) Anatomical Region Laterality Modality Spine Radiographic Leticia ging 05/30/2025 4:18 PM CDT Impressions 05/30/2025 4:23 PM CDT IMPRESSION: Limited evaluation however within study constraints following noted: Artifact versus apparent gap underlying anterior cervical spine fusion hardware however only on one view. Associated recent postoperative findings as detailed above. Recommend CT cervical spine for more complete assessment. Additional incidental, nonurgent, and chronic appearing findings as detailed above. Ordered By: MICHELE HANSEN Interpreted By: Senia Grover MD, 05/30/2025 4:18 PM Narrative 05/30/2025 4:23 PM CDT [address] [address] EXAMINATION: CERVICAL SPINE RADIOGRAPH(S) Exam Date: 05/27/2025 6:17 AM INDICATION: Follow-up spinal fusion TECHNIQUE: 3 views. COMPARISON: Intraoperative fluoroscopy images only 05/27/2025 FINDINGS: Limited odontoid view due to obscuration. Cervical spine anterior fusion hardware with metallic plate and transfixing screws identified C3-6 level difficult to assess due to obscuration but band of lucency identified underlying the metallic plate and cervical spine with gap noted based on the lateral view. Surgical drain projecting over the anterior cervical spine prevertebral soft tissues with some associated thickening. Superimposed a moderate multilevel degenerative changes throughout the visualized cervical spine. Significant calcified atherosclerotic plaque in the left carotid artery. Partially imaged interstitial thickening of the lungs. Limited evaluation of the partially imaged thorax and head on this nondedicated study. Procedure Note Senia Grover MD - 05/30/[address] [address] EXAMINATION: CERVICAL SPINE RADIOGRAPH(S) Exam Date: 05/27/2025 6:17 AM INDICATION: Follow-up spinal fusion TECHNIQUE: 3 views. COMPARISON: Intraoperative fluoroscopy images only 05/27/2025 FINDINGS: Limited odontoid view due to obscuration. Cervical spine anterior fusion hardware with metallic plate andtransfixing screws identified C3-6 level difficult to assess due toobscuration but band of lucency identified underlying the metallic plateand cervical spine with gap noted based on the lateral view. Surgical drain projecting over the anterior cervical spine prevertebralsoft tissues with some associated thickening. Superimposed a moderate multilevel degenerative changes throughout thevisualized cervical spine. Significant calcified atherosclerotic plaque in the left carotid artery. Partially imaged interstitial thickening of the lungs. Limited evaluation of the partially imaged thorax and head on thisnondedicated study. IMPRESSION: Limited evaluation however within study constraints following noted: Artifact versus apparent gap underlying anterior cervical spine fusionhardware however only on one view. Associated recent postoperative findings as detailed above. Recommend CT cervical spine for more complete assessment. Additional incidental, nonurgent, and chronic appearing findings asdetailed above. Ordered By: MICHELE HANSEN Interpreted By: Senia Grover MD, 05/30/2025 4:18 PM us Michele Hansen MD GENERAL IMAGING Final Result * (ABNORMAL) URINALYSIS (05/27/2025 4:07 PM CDT) COLOR (U) LIGHT YELLOW 05/27/2025 5:24 PM CDT [facility] TRANSPARENCY CLEAR 05/27/2025 5:24 PM CDT [facility] SPECIFIC GRAVITY (U) 1.004 1.002 - 1.035 05/27/2025 5:24 PM CDT [facility] U PH 6.0 5 - 8 05/27/2025 5:24 PM CDT [facility] PROTEIN RANDOM (U) NEGATIVE NEGATIVE 05/27/2025 5:24 PM CDT [facility] GLUCOSE (U) NEGATIVE NEGATIVE MG/DL 05/27/2025 5:24 PM CDT [facility] KETONES MG/DL (U) NEGATIVE NEGATIVE 05/27/2025 5:24 PM CDT [facility] BILIRUBIN (U) NEGATIVE NEGATIVE 05/27/2025 5:24 PM CDT [facility] BLOOD (U) 1+(A) NEGATIVE 05/27/2025 5:24 PM CDT [facility] NITRITES NEGATIVE NEGATIVE 05/27/2025 5:24 PM CDT [facility] UROBILINOGEN NORMAL 0 - 1 EU/DL 05/27/2025 5:24 PM CDT [facility] LEUKOCYTES (U) TRACE(A) NEGATIVE 05/27/2025 5:24 PM CDT [facility] RBC/HPF 1 0 - 3 /HPF 05/27/2025 5:24 PM CDT [facility] WBC/HPF 4 0 - 6 /HPF 05/27/2025 5:24 PM CDT [facility] BACTERIA (U) PRESENT /HPF 05/27/2025 5:24 PM CDT [facility] NON SQUAMOUS EPITHELIAL <1 /HPF 05/27/2025 5:24 PM CDT [facility] URINE SPECIMEN OBTAINED BY CLEAN CATCH PROCEDURE / Unknown 05/27/2025 4:07 PM CDT Ronit Villalobos MD URINE ORDERABLES Final Result Performing Organization Address [facility] Co de Phone Number [facility] [address] [place] [address], [place] [phone] * CULTURE, URINE (05/27/2025 4:07 PM CDT) SPEC DESCRIPTION URINE VERA CATH 05/27/2025 4:07 PM CDT [facility] SPECIAL REQUESTS NO SPECIAL REQUEST 05/27/2025 4:07 PM CDT [facility] CULTURE RESULT NO GROWTH (< OR = 1,000 CFU/ML) 05/29/2025 9:03 AM CDT [facility] URINE SPECIMEN OBTAINED VIA INDWELLING URINARY CATHETER / Unknown 05/27/2025 4:07 PM CDT 05/27/2025 4:54 PM CDT Randy Chavez NP MICROBIOLOGY - GENERAL ORDERA BLES Final Result Performing Organization Address [facility] Co de Phone Number [facility] [address] [place] [address], [place] [phone] * ECG 12 lead (05/27/2025 12:38 PM CDT) ECG QT 418 [facility] ECG QTC 434 [facility] 05/27/2025 12:3 8 PM CDT Narrative [facility] - 05/28/2025 11:20 AM CDT [facility] [address] [place] [address] Test Date: 2025-05-27 Pat Name: YENY POSEY Department: 1 Room: 912 Gender: Female 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: [place]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 : 1950 Requested By: RONIT VILLALOBOS Order Number: [id number] Reading MILO Vela Measurements Intervals [place] Rate: 64 P: 55 FL: 127 QRS: -8 QRSD: 97 T: 41 QT: 418 QTc: 434 Interpretive Statements SINUS RHYTHM MINIMAL VOLTAGE CRITERIA FOR LVH, CONSIDER NORMAL VARIANT [MEETS CRITERIA IN ONE OF: R(aVL), S(V1), R(V5), R(V5/V6)+S(V1)] POSSIBLE ANTERIOR MYOCARDIAL INFARCTION , PROBABLY OLD [30 ms Q WAVE IN V3/V4, OR R < 0.2 mV IN V4] Procedure Note César Vela MD - 05/28/2025 [place] [address] [place] [address] Test Date: 2025-05-27 Pat Name: YENY POSEY Department: 1 Room: 912 Gender: Female 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: In : 1950 Requested By: RONIT VILLALOBOS Order Number: [id number] Reading MILO Vela Measurements Intervals [place] Rate: 64 P: 55 FL: 127 QRS: -8 QRSD: 97 T: 41 QT: 418 QTc: 434 Interpretive Statements SINUS RHYTHM MINIMAL VOLTAGE CRITERIA FOR LVH, CONSIDER NORMAL VARIANT [MEETS CRITERIAIN ONE OF: R(aVL), S(V1), R(V5), R(V5/V6)+S(V1)] POSSIBLE ANTERIOR MYOCARDIAL INFARCTION , PROBABLY OLD [30 ms Q WAVE IN V3/V4, OR R < 0.2 mV IN V4] us Ronit Villalobos MD ECG ORDERABLES Final Result [facility] * SURG XR FLUOROSCOPY (05/27/2025 11:07 AM CDT) Anatomical Region Laterality Modality Undefined Radio Fluoroscop y 05/27/2025 9:27 AM CDT Narrative 05/27/2025 9:27 AM CDT This report does not contain a radiologist's interpretation. Please review associated procedure and/or operative report. Procedure Note Palomo Marie MD - 05/27/2025 This report does not contain a radiologist's interpretation. Please review associated procedure and/or operative report. Michele Hansen MD IMAGES ONLY Final Result * TYPE & SCREEN (05/27/2025 7:58 AM CDT) ABO/RH O POSITIVE 05/27/2025 8:58 AM CDT [facility] ANTIBODY SCREEN NEGATIVE 05/27/2025 8:58 AM CDT [facility] SAMPLE EXPIRATION 05/30/2025,2 359 05/27/2025 8:16 AM CDT [facility] 05/27/2025 7:58 AM CDT Janell Delatorre MD BLOOD BANK TEST ORDERABL ES Final Result Performing Organization Address [facility] Co de Phone Number [facility] [address] [place] [address], [phone] * OUTSIDE LAB (04/29/2025 12:00 AM CDT) Only the most recent of3 resultswithin the time period is included. 04/29/2025 [facility] Scanned SCANNING Final Resul t [facility] * IMAGE STUDY (04/29/2025 12:00 AM CDT) Anatomical Region Laterality Modality Other 04/29/2025 [facility] Scanned SCANNING Final Resul t * ECG (04/05/2025 12:00 AM CDT) 04/05/2025 [facility] Scanned SCANNING Final Resul t Performing Organization Address [facility] Co de Phone Number [facility] * LIPID PANEL (09/12/2017 2:21 PM ROOFING FOREMAN) CHOLESTEROL 140 0 - 200 MG/DL 09/12/2017 7:59 PM ROOFING FOREMAN [facility] Comment:DESIRABLE: <200 TRIGLYCERIDES 145 0 - 149 MG/DL 09/12/2017 7:59 PM ROOFING FOREMAN [facility] Comment:<150 NORMAL HDL 51 >39 MG/DL 09/12/2017 7:59 PM ROOFING FOREMAN [facility] Comment:NORMAL: 40-60 DIRECT LDL 67 0 - 129 MG/DL 09/12/2017 7:59 PM ROOFING FOREMAN [facility] Comment:<100 OPTIMAL 09/12/2017 2:21 PM ROOFING FOREMAN 09/12/2017 7:31 PM ROOFING FOREMAN us Generic Conversion MD LABORATORY Final R esult Performing Organization Address City/[facility] Co de Phone Number [facility] [address] [place] [address], [phone] from Last 3 Months or Most Recently Relevant to Health Maintenance [place] [address] [place] [address] MEDICARE Advance Directives Documents on File Type Date Recorded Patient Digital Learning 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
--- OUTSIDE RECORDS SUMMARY | 2025-06-23 21:09 | XMS_ITS | Clinical Summary ---
Author Organization [facility] Address [address] [place] [address] Care Team Providers Care Hostel Parent Name Role Phone Yasmani Gutierrez MD Primary Care Provider [phone] Allergies Active Allergy Reactions Criticality Noted Date Comments Acetaminophen History Unknown 04/14/2019 Codeine Rash High 03/04/2015 Gabapentin Anaphylaxis High 03/04/2015 Hydrocodone Bitartrate Rash High 04/14/2019 Levofloxacin History Unknown 06/03/2015 Molindone History Unknown 04/14/2024 from [facility] pharmacy list Penicillin Rash High 03/04/2015 Polymyxin B History Unknown 04/14/2024 from [facility] allergy list Sulfa (Sulfonamide Antibiotics) Vomiting 03/04/2015 Thyrotropin History Unknown 04/14/2024 from [facility] pharmacy allergy list Medications acetaminophen (TYLENOL) 500 [...] Department Care Team Description 04/26/2025 Orders Only [facility] Services [facility] [address] [place] [address] Natali Subramanian RN from Last 3 Months Immunizations Immunization Administration Dates Next Due FLU VACCINE QUADRIVALENT ADJUVANTED PF 2,06/30/2021,05/16/2020 FLU VACCINE QUADRIVALENT PF 05/21/2016 Flu Vaccine, Patient Reported 05/16/2020 Pneumococcal Conjugate 20 Valent 02/01/2023 Pneumococcal Polysaccharide 06/30/2021, 7 Tdap 02/01/2023 Social History Tobacco Use Types Packs/Day Years Used Date Smoking Tobacco: Former Cigarettes 0 Q uit: 05/27/1970 Smokeless Tobacco: Never Tobacco Cessation:Counseling Given: Not Answered [facility] Utilities Answer Date Recorded In the [...] week 03/05/2024 How often do you attend mormonism or sikh serv ices? Never 03/05/2024 Do you belong to any clubs o r organizations such as mormonism groups, unions, fraternal or athletic groups, or [...] and heating? Not hard at all 03/05/2024 [facility] of Occupat ional Health - Occupational Stress [...] place to sleep or slept in a intermediate (including now)? No 02/01/2023 Housing Stability Vital [...] were you homeless or living in a intermediate (including now)? 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 Respiratory Rate 18 2024 9:41 AM CDT [...] FIT/gFOBT 12/25/1995 RSV Vaccine (1 - Risk 50-74 years 1-dose series) 2000 Mammogram 03/01/2024 03/01/2023 Medicare Annual Wellness Visit [...] Results * MAMMOGRAPHY (03/01/2023) Mammogram Negative [facility] Anatomical Region Laterality Modality Other Narrative Resulting Agency Comment Historical Provider HEALTH MAINTENANCE Final Result * COLONOSCOPY (04/24/2017) Colonoscopy diverticulo sis, follow up in 5 years [facility] Abdoulaye Hanna DO HEALTH MAINTENANCE Final Resu lt [facility] [address] [place] [address], [facility] [phone] from Last 3 Months or Most Recently Relevant to Health Maintenance Care Teams Hostel Parent Relationship Specialty Start Date End Date Yasmani Gutierrez MD [address] [place] [phone] [email or web address] PCP - General Family Medicine 05/27/19
== END 2025-06-23 21:17 ==
PROVIDERS: Emergency Provider Emergency Medicine; PCP Internal Medicine
DX: Z43.1 Encounter for attention to gastrostomy (principal); Z87.891 Personal history of nicotine dependence
CPT/HCPCS: 43762; 99283

== ENCOUNTER 2025-07-15 13:47 | Outpatient (CLI) | payer MEDICARE, OTHER, SELFPAY ==
--- NOTE | ~2025-07-15 | XR_ITS ---
MODIFIED ESOPHAGRAM HISTORY: Difficulty swallowing TECHNIQUE: Modified barium esophagram was performed on 07/15/2025. I administered fluoroscopy and performed the exam with speech pathologist. Patient was seated for lateral fluoroscopic imaging for ingestion of thin liquids, pudding, solids and quantified amounts, followed by thin liquids in uncontrolled amounts. This was recorded on tape. A single fluoroscopic spot image was also recorded. The DAP for this procedure was 1.5 Gycm2. The amount of fluoroscopy time used during this procedure was 2.6 minutes. FINDINGS: Anterior plate and screw fixation for cervical anterior spinal fusion extending from C4 through C6 and incompletely visualized at C7. Oral stage: Adequate function. Pharyngeal stage: Reduced laryngeal elevation and tongue base retraction. There is moderate vallecular residue with pudding cracker consistencies secondary to decreased tongue base retraction. One episode of laryngeal penetration without aspiration with uncontrolled swallows of thin liquids by straw. Cervical/esophageal stage: Adequate function. IMPRESSION: Pharyngeal dysphagia with laryngeal penetration without aspiration. Please correlate with speech pathologist findings and specific feeding recommendations. Reviewed, dictated and finalized at location A. OPHOTOGRAPHY TECHNICIAN IMPRESSION: Pharyngeal dysphagia with laryngeal penetration without aspiration. Please correlate with speech pathologist findings and specific feeding recomm endations.
--- NOTE | 2025-07-15 14:54 | REHSTMBS ---
Assessment and note entered by Lidia Bautista, VARNISH INSPECTOR Modified Barium Swallow Evaluation Feeding Type Recommended Oral Food Consistency Regular, Level 7 Liquid Consistency Thin (0) Treatment Recommendations Tongue Base Exercise ST Clinical Summary The patient is a 74 year old female referred for an outpatient MBS. The patient presently has a feeding tube in place and is on a Minced and Moist Diet with thin liquid at [facility]. She has had previous cervical surgery which limits head flexion and is here to be evaluated for possible diet advancement. The patient was seen at 90 degrees in a lateral view and presented the following consistencies: 5cc/tsp thin liquid, thin liquid via straw, pudding mixed with barium paste, and cracker coated with barium paste. Oral stage: Timely oral preparation and transit was noted for all consistencies presented without oral residual. Some extra tie required for solids due to limited dentition for mastication. Pharyngeal Stage: When presented thin liquid barium via straw (due to patient's limited head posture for trials with a cup). The patient was viewed to have trace penetration during the swallow secondary to reduced laryngeal elevation and residual within the valleculae between swallows from a prior trial of pudding consistency . Laryngeal penetration was viewed with only 1 of 5 straw drink trials and only with a large volume of thin liquid. The patient was able to consistently follow a directives to take small controlled drinks via straw without penetration with additional trials. With trials of pudding/ puree and cracker/solid consistencies the patient was viewed to have moderate residual remaining within the valleculae between swallows due to reduced lingual pressure. The patient was able to reduce residual remaining within the vallecula by alternating bites and small drinks thin liquid. No aspiration or penetration was viewed with cracker and pudding trials. Recommend: 1 . Regular Diet / Level 7 2. Thin Liquid / Level 0 3. Upright with meals 4. Frequent observation 5. Small bites and drinks 6. Alternate bites and drinks. Thank you for the consult
== END 2025-07-15 13:48 | disposition home or self-care (01) ==
PROVIDERS: PCP Internal Medicine; Visit Provider Internal Medicine
DX: R13.13 Dysphagia, pharyngeal phase (principal)
CPT/HCPCS: 74230; 92611